=== PATIENT | female | born 1950 | race American Indian/Alaskan Native ===

== ENCOUNTER 2020-06-15 14:05 | Outpatient (CLI) | payer OTHER, SELFPAY ==
--- NOTE | ~2020-06-15 | US_ITS ---
EXAMINATION: US art doppler w press LE BI DATE: 06/15/2020 15:20 INDICATION: Peripheral vascular disease TECHNIQUE: Segmental pressures and plethysmographic and Doppler waveforms of the brachial and lower e xtremity arteries were obtained. COMPARISON: None. FINDINGS: Right and left brachial artery pressures are unable to be obtained due to inability to occlude the ve ssels. Pressures were unable to be obtained at the left and right high thigh due to patient body habi tus. More distally the vessels were unable to be a occluded throughout the right lower limb to the an kle and at the left above and [id number] popliteal artery. Elevated pressures with systolic blood pressures of 167 are seen at both the left dorsalis and posterior tibial arteries and with systolic pressures of 183 and 190 at the right and left great toes respectively. Biphasic waveforms with brisk systolic upstrokes are seen at the arteries throughout both the left and right lower limbs. IMPRESSION: 1. Limited study due to inability to occlude either the left or right brachial artery and the arterie s throughout the majority of both lower limbs. The significantly elevated blood pressures at the bila teral great toes as well as a biphasic waveforms and brisk systolic upstrokes at all of the arteries throughout both lower limbs argues against significant arterial occlusive disease. Reviewed, dictated and finalized at location A. IMPRESSION: 1. Limited study due to inability to occlude either the left or right brachial artery and the arteries throughout the majority of both lower limbs. The signif icantly elevated blood pressures at the bilateral great toes as well as a bipha sic waveforms and brisk systolic upstrokes at all of the arteries throughout ailyn th lower limbs argues against significant arterial occlusive disease.
== END 2020-06-15 14:06 | disposition home or self-care (01) ==
PROVIDERS: PCP Emergency Medicine; Visit Provider Emergency Medicine
DX: I73.9 Peripheral vascular disease, unspecified (principal)
CPT/HCPCS: 93923

== ENCOUNTER → 2020-09-22 15:06 | Outpatient (CLI) | payer OTHER, SELFPAY ==
--- NOTE | ~2020-09-22 | CT_ITS ---
EXAMINATION:CT lung screening DATE: 09/22/2020 15:24 INDICATION: Nicotine dependence, cigarettes, in remission. Smoker who quit 4 years ago with 40 pack y ear history. TECHNIQUE: Computed tomography (CT) of the chest was performed without intravenous contrast. Automate d exposure control and iterative reconstruction technique were employed. The dose-length product (DLP ) was 93.96 mGy-cm. COMPARISON: Chest CT 05/14/2019 FINDINGS: There is mild emphysema. There are scattered areas of subsegmental atelectasis and scarring in the lungs. There are several scattered nodules in the lungs measuring up to 6 mm in left upper lo be, stable from 05/14/2019. There is an 8 mm pleural-based nodule in left lower lobe in an area of scar ring, stable from 05/14/2019. No pleural effusion. The heart size is normal. There are coronary artery calcifications. No pericardial effusion. There are changes of anterior fusion procedure in cervical s pine. There is mild thoracic spondylosis. There is levoscoliosis of upper thoracic spine. IMPRESSION: 1. Lung-RADS category 2: Benign appearance or behavior. Continue annual screening with noncontrast lo w-dose chest CT in 12 months. Reviewed, dictated and finalized at location A. AL LOGISTICS ANALYST IMPRESSION: 1. Lung-RADS category 2: Benign appearance or behavior. Continue annual screeni ng with noncontrast low-dose chest CT in 12 months.
== END ==
PROVIDERS: PCP Student in an Organized Health Care Education/Training Program; Visit Provider Student in an Organized Health Care Education/Training Program
DX: Z12.2 Encounter for screening for malignant neoplasm of respiratory organs (principal); F17.211 Nicotine dependence, cigarettes, in remission
CPT/HCPCS: 71271

== ENCOUNTER 2020-10-07 12:20 | Outpatient (CLI) | payer OTHER, SELFPAY ==
--- NOTE | ~2020-10-07 | MM_ITS ---
EXAMINATION: MM screening [facility] BI w deon HISTORY: Screening TECHNIQUE: Craniocaudal and mediolateral oblique 3-D tomosynthesis images were obtained and synthetic 2-D images were generated. CAD analysis was submitted and interpreted. COMPARISON: Comparison to multiple prior studies sequentially, with oldest reviewed study dated 06/12. BREAST PARENCHYMAL COMPOSITION: There are scattered areas of fibroglandular density. FINDINGS: There is no evidence of suspicious mass, calcification, or architectural distortion to sugg est malignancy in either breast. There has been no suspicious interval change. IMPRESSION: 1. No mammographic evidence of malignancy. 2. Recommend routine screening mammography in one year. BI-RADS Category 1: Negative Reviewed, dictated and finalized at location A. SETTER
== END 2020-10-07 12:21 | disposition home or self-care (01) ==
LOC: ANHIMG 12:23
PROVIDERS: PCP Student in an Organized Health Care Education/Training Program; Visit Provider Student in an Organized Health Care Education/Training Program
DX: Z12.31 Encounter for screening mammogram for malignant neoplasm of breast (principal)
CPT/HCPCS: 77063; 77067

== ENCOUNTER 2021-03-18 13:10 | Outpatient (CLI) | payer OTHER, SELFPAY ==
--- NOTE | 2021-03-18 | ECHO_ITS ---
Patient Info Name: Patricia Grider Age: 70 years : 1950 Gender: Female Ht: 60 in Wt: 197 lbs BSA: 1.99 m2 HR: 69 bpm BP: 133 / 88 mmHg Heart Rhythm: Sinus Rhythm Technical Quality: Fair Exam Date: 03/18/2021 1:44 PM Exam Location: [facility] Patient Status: Outpatient Admit Date: 03/18/2021 Staff Ordering Physician: AureliaAdams DO Manager Licensing: Lynette Nielsen RDCS Attending Provider: AureliaAdams DO Exam Type: CA echo doppler color flow Study Info Indications I27.2 - Other secondary pulmonary hypertension Complete two-dimensional, color flow and Doppler transthoracic echocardiogram is performed. Summary 1. Complete two-dimensional, color flow and Doppler transthoracic echocardiogram is performed. 2. Normal left ventricular size and thickness. The left ventricular systolic function appeared to be the lower end of normal. The visual it ejection fraction estimate was 50-55%. Grade 2 diastolic dysfunction is present. No segmental wall motion abnormalities. 3. Mild pulmonary hypertension, estimated pulmonary arterial systolic pressure is 36 mmHg. 4. No significant valve disease. 5. Calcified aortic root. 6. Borderline pulmonary hypertension, RVSP estimated to be 36 mmHg. 7. Normal sinus rhythm. Left Ventricle Left ventricular chamber dimension is normal. Left ventricular systolic function is normal, estimated at 50-55%. There is no increased left ventricular wall thickness. Left ventricular septal wall motion is normal. The left ventricular diastolic function is grade II diastolic dysfunction. Right Ventricle Right ventricular chamber dimension is normal. Right ventricular systolic function is normal. Left Atria Left atrial chamber dimension is mildly enlarged. Right Atria Right atrial chamber dimension is normal. Aortic Valve The aortic valve is trileaflet. There is mild aortic valve sclerosis. There is no aortic valve stenosis. There is no aortic valve regurgitation. Pulmonic Valve The pulmonic valve is normal. There is no pulmonic valve stenosis. There is no pulmonic regurgitation. Mitral Valve The mitral valve has normal leaflets. There is no mitral valve stenosis. There is trace mitral valve regurgitation. Tricuspid Valve The tricuspid valve leaflets are normal. There is no significant tricuspid valve stenosis. There is trace tricuspid valve regurgitation. Mild pulmonary hypertension, estimated pulmonary arterial systolic pressure is 36 mmHg. Pericardium/Pleural The pericardium appears normal. There is no pericardial effusion. Inferior Vena Cava Normal inferior vena cava with >50% collapse upon inspiration consistent with Empty right atrial pressure, 10 mmHg. Aorta The aortic root size at the sinus of Valsalva is normal. The prox ascending aorta size is normal. Left Ventricular Outflow Tract Name Value Normal LVOT 2D LVOT Diameter 1.9 cm LVOT Doppler LVOT Peak Gradient 4 mmHg LVOT Mean Gradient 2 mmHg LVOT VTI 21 cm
== END 2021-03-18 13:11 | disposition home or self-care (01) ==
LOC: ANHCARD 13:12
PROVIDERS: PCP Student in an Organized Health Care Education/Training Program; Visit Provider Student in an Organized Health Care Education/Training Program
DX: I27.20 Pulmonary hypertension, unspecified (principal); I25.10 Atherosclerotic heart disease of native coronary artery without angina pectoris
CPT/HCPCS: 93306

== ENCOUNTER 2021-04-28 08:56 | Outpatient (CLI) | payer OTHER, SELFPAY ==
--- NOTE | 2021-04-28 12:32 | P.PCNPFT_ITS ---
PFT Procedure Performed PFT Procedure Performed Spirometry with Pre/Post Bronchodilator Plethysmography (Lung Vol) Diffusing Cap (DLCO) Flow Vol Loop PFT Interpretation This is a pulmonary function test with pre and post-bronchodilator spirometry, plethysmography and diffusing capacity. The test was performed and results interpreted in accordance with the 2019 and 2005 ATS/ERS Task Force guidelines respectively using the Global Lung Function Initiative-2012 reference equations. Patient demonstrated good effort and cooperation. Reproducibility criteria were met. The quality of the pre bronchodilator spirometry maneuver was Grade A and post bronchodilator spirometry maneuver was Grade A. Findings: Spirometry: There is decreased maximal expiratory airflow at middle and low lung volumes with concave expiratory flow tracing. The pre bronchodilator FVC is 2.01 L, 82% predicted. The pre bronchodilator FEV1 is 1.36 L, 71% predicted. The FEV1: FVC ratio is 68%. The post bronchodilator FVC is 2.21 L, representing a 10% increase. The post bronchodilator FEV1 is 1.52 L, representing a 160 mL increase which corresponds to a 12% increase. Plethysmography: The total lung capacity is 4.11 L, 93% predicted. The functional residual capacity is 2.55 L, 102% predicted. The residual volume is 1.83 L, 93% predicted. Diffusion capacity: The absolute diffusion capacity is 11.0, 58% predicted. The diffusing capacity corrected for alveolar volume is 3.18, 71% predicted. Impression: There is a mild obstructive abnormality without significant improvement after inhaling a single dose of albuterol as the absolute increase in FEV1 is less than 200 mL. the lung volumes are normal. The absolute diffusi on capacity is moderately decreased and remains mildly decreased when corrected for alveolar volume. There are no prior studies for comparison
== END 2021-04-28 08:57 | disposition home or self-care (01) ==
PROVIDERS: PCP Student in an Organized Health Care Education/Training Program; Visit Provider Student in an Organized Health Care Education/Training Program
DX: R93.1 Abnormal findings on diagnostic imaging of heart and coronary circulation (principal); R94.2 Abnormal results of pulmonary function studies
CPT/HCPCS: 94060; 94726; 94729

== ENCOUNTER 2021-12-22 08:58 | Outpatient (CLI) | payer OTHER, SELFPAY ==
--- NOTE | ~2021-12-22 | CT_ITS ---
EXAMINATION: CT lung screening EXAM DATE: 12/22/2021 09:22 INDICATION: Nicotine Dependence Cigarettes TECHNIQUE: Spiral low dose CT of the chest without contrast. Axial, coronal and sagittal images were reviewed. The dose-length product (DLP) for this examination was 81.28 mGy-cm. The exposure was ta ilored according to patient size (auto mA exposure control), and iterative reconstruction (ASIR) was used as additional dose reduction technique. Comparison is made to prior examination from 09/22/2020. FINDINGS: Scattered small opacities, mostly linear postinfectious. Largest nodular opacity is in the left upper lobe measuring 5 mm, image 22, stable. There is mild to moderate emphysema and hyperinfla tion. Tracheobronchial tree is patent. There is no mediastinal, hilar or axillary lymphadenopathy. There are no pleural or pericardial effusions. There is no pneumothorax. Heart normal in size. There is moderate to severe coronary arterial calcification, arterial sclerosis. Splenic flexure c olonic diverticulosis. There is thoracic spondylosis without osteoblastic or osteolytic lesions iden tified. IMPRESSION: 1. Lung-RADS category 2S, benign appearance or behavior (<1% chance of malignancy); recommend continu ed LDCT screening in 1 year. 2. Moderate to severe coronary artery calcifications. Has cardiology recently evaluated? Reviewed, dictated and finalized at location B. IMPRESSION: 1. Lung-RADS category 2S, benign appearance or behavior (<1% chance of malignan cy); recommend continued LDCT screening in 1 year. 2. Moderate to severe coronary artery calcifications. Has cardiology recently e valuated?
== END 2021-12-22 08:59 | disposition home or self-care (01) ==
PROVIDERS: PCP Student in an Organized Health Care Education/Training Program; Visit Provider Student in an Organized Health Care Education/Training Program
DX: Z12.2 Encounter for screening for malignant neoplasm of respiratory organs (principal); F17.211 Nicotine dependence, cigarettes, in remission; I25.10 Atherosclerotic heart disease of native coronary artery without angina pectoris
CPT/HCPCS: 71271

== ENCOUNTER 2021-12-28 15:59 | Emergency (ER) | payer OTHER, SELFPAY ==
[2021-12-28] VITALS (11 sets, daily range): BP systolic 109–132; BP diastolic 51–53; PULSE 62–81; RESP 16–27; TEMP 36.4; O2SAT 94–98
--- NOTE | ~2021-12-28 | XR_ITS ---
EXAMINATION: XR chest 2V DATE: 12/28/2021 16:53 INDICATION: Chest pain radiating from right to left. COPD. TECHNIQUE: PA and lateral views of the chest were obtained. COMPARISON: Chest radiograph dated 10/19/[address] dated 12/22/2021. FINDINGS: Linear atelectasis/scarring at the lateral left lower lung zone. Additional mild peripheral atelectas is/scarring at the lateral aspect of the junction of the right mid to upper lung zone. No other airsp rebecca opacities, pulmonary edema, pleural effusion or pneumothorax. The cardiomediastinal silhouette is normal. Mild S-shaped curvature of the thoracolumbar spine. Anterior plate-screw fixation for mid to lower cervical anterior spinal fusion. IMPRESSION: 1. Chronic atelectasis/scarring at the left lung base and lateral right mid to upper lung zone. No ac [place] cardiopulmonary disease. Reviewed, dictated and finalized at location A. IMPRESSION: 1. Chronic atelectasis/scarring at the left lung base and lateral right mid to upper lung zone. No acute cardiopulmonary disease.
--- NOTE | ~2021-12-28 | NM_ITS ---
EXAMINATION: NM pulmonary perfusion DATE: 12/28/2021 19:56 INDICATION: Chest pain. TECHNIQUE: 5.1 mCi Tc-99m MAA was administered intravenously for perfusion images. Scintigraphic soo ges of the chest were obtained. COMPARISON: Chest 2 views 12/28/2021, chest CT 12/22/2021 FINDINGS: Perfusion images show large mismatched defects in apical and posterior segments of right upper lobe t hat are out of proportion to the degree of emphysema. There are small defects in the lower lobes. The re is a moderate-sized mismatched defect in the posterobasal segment right lower lobe. IMPRESSION: 1. Pulmonary embolism present (high probability). I called this result to Dr. Castro. Reviewed, dictated and finalized at location B.
--- NOTE | 2021-12-28 16:05 | ECG_ITS ---
Measurements Intervals Floyd Rate: 75 P: 63 WY: 151 QRS: 57 QRSD: 80 T: 56 QT: 393 QTc: 440 Interpretive Statements SINUS RHYTHM WITH SINUS ARRHYTHMIA LOW QRS VOLTAGE IN PRECORDIAL LEADS [QRS DEFLECTION < 1.0 mV IN CHEST LEADS] ABNORMAL ECG COMPARED TO ECG 10/17/2018 14:29:17 NO SIGNIFICANT CHANGE Electronically Signed On 12-29-2021 11:38:41 CDT by Dariel Brooks M.D.
--- NOTE | 2021-12-28 16:59 | ED.CHESTPAIN ---
HPI - Chest Pain General Chief Complaint: Chest Pain Stated Complaint: chest pain Time Seen by Provider: 12/28/21 16:53 History of Present Illness HPI narrative: 71-year-old female presents the emergency room for evaluation of chest pain has been present for 5 days. Patient states last week she had a CT scan to evaluate pulmonary nodules, and since then has been experiencing a constant sharp chest pain that radiates across her chest and through to her back. Patient denies any alleviating or aggravating factors. Patient also reports 1 episode of palpitations that lasted for just a couple of seconds. Patient denies any increase shortness of breath, nausea vomiting, dizziness, or lightheadedness. Patient denies any syncope or presyncopal episodes. Patient states that she has a recently started taking an increased dose of her losartan/HCTZ. Related Data Home Medications Medication Instructions Recorded Confirmed dorzolamide 22.3 mg-timolol 6.8 1 drop EACH EYE BID 08/13/19 mg/mL eye drops Allergies Allergy/AdvReac Type Severity Reaction Status Date / Time etodolac Allergy Mild UNKNOWN Verified 10/17/18 17:04 amoxicillin Allergy Unknown Verified 10/17/18 17:04 bacitracin Allergy Unknown Verified 10/17/18 17:04 chlorpheniramine Allergy Unknown Verified 10/17/18 17:04 codeine Allergy Unknown Verified 10/17/18 17:04 diclofenac Allergy Unknown Verified 10/17/18 17:04 doxycycline Allergy Unknown Verified 10/17/18 17:04 hydrocodone Allergy Unknown Verified 10/17/18 17:04 latex Allergy Unknown RASH WITH Verified 10/17/18 17:04 RUBBER GLOVES misoprostol Allergy Unknown Verified 10/17/18 17:04 moxifloxacin Allergy Unknown Verified 10/17/18 17:04 neomycin Allergy Unknown Verified 10/17/18 17:04 polymyxin B Allergy Unknown Verified 10/17/18 17:04 adhesive tape AdvReac Mild VERY Verified 10/17/18 17:04 SENSITIVE SKIN Contrast Media Allergy Severe SOB, Uncoded 10/17/18 17:04 SWELLING, HIVES Review of Systems Review of Systems: CONSTITUTIONAL: Denies fever, chills, or sweats. EYES: Denies visual changes, redness, or discharge. ENT: Denies rhinorrhea, congestion, sore throat, or otalgia. CARDIOVASCULAR: Reports chest pain RESPIRATORY: Denies cough or dyspnea. GASTROINTESTINAL: Denies abdominal pain, nausea, vomiting, or diarrhea. GENITOURINARY: Denies dysuria or hematuria. SKIN: Denies rash or itching. MUSCULOSKELETAL: Denies back pain, joint pain, or myalgia. NEUROLOGIC: Denies headache, numbness, dizziness, or weakness. PSYCHIATRIC: Denies anxiety or depression. [facility] Past Medical History Medical History (Updated 12/28/21 @ 22:47 by Eusebio Garcia APRN) COPD (chronic obstructive pulmonary disease) Diabetes mellitus HTN (hypertension) Family History Family History Father Family history of chronic obstructive pulmonary disease Malignant neoplasm of prostate, Onset Age: 65 Mother Family history of suicide, Onset Age: 43 Family history of malignant neoplasm, Onset Age: 43 Other Acute myocardial infarction Diabetes mellitus Family history of Sheree's chorea Family history of arthritis Family history of cardiovascular disease Hypertension Social History Social History Smoking status: Former smoker Smoking end date: 09/11/16 Alcohol intake: never Exam Narrative: GENERAL: Well-appearing, well-nourished, and in no acute distress. HEAD: Normocephalic, atraumatic. EYES: PERRLA and EOMI. NECK: Supple. No adenopathy or masses. No carotid bruits or JVD CHEST: Clear to auscultation. No respiratory distress. No wheezes rales or rhonchi HEART: Regular rate and rhythm. No murmur heard. Normal peripheral pulses. ABDOMEN: Soft, nontender, nondistended, normal active bowel sounds. EXTREMITIES: Normal range of motion. No edema. SKIN:
[2021-12-28 17:17] LABS: Basophils Percent Auto 0.3 % (0.2-1.2); Eosinophils Absolute Auto 0.1 K/mm3 (0-0.3); Eosinophils Percent Auto 1.8 % (0-4.4); Hematocrit 45.2 % (37.0-47.0); Hemoglobin 14.6 g/dL (12.0-15.0); Immature Granulocyte Absolute 0.04 K/mm3 (0.00-0.031); Immature Granulocyte Percent A 0.6 % (0-0.5); Lymphocytes Absolute Auto 1.66 K/mm3 (0.9-3.2); Lymphocytes Percent Auto 23.3 % (18.3-44.2); Mean Corpuscular HGB Conc 32.3 g/dl (32-36); Mean Corpuscular Hemoglobin 30.3 pg (26-34); Mean Corpuscular Volume 93.8 fl (80-100); Mean Platelet Volume 10.4 fl (7.4-10.4); Monocytes Absolute Auto 0.7 K/mm3 (0.1-0.6); Monocytes Percent Auto 10.1 % (2.6-8.5); Neutrophils Absolute Auto 4.6 K/mm3 (1.3-6.7); Neutrophils Percent Auto 63.9 % (45.5-73.1); Platelet Count Result 186 k/mm3 (150-375); Red Blood Count 4.82 M/mm3 (4.2-5.4); White Blood Count 7.1 K/mm3 (4.5-10.0)
[2021-12-28 17:26] LABS: Alanine Aminotransferase 18 U/L (4-35); Albumin Level 4.2 g/dL (3.5-5.1); Alkaline Phosphatase 82 U/L (38-126); Anion Gap 8 mmol/L (8-16); Aspartate Amino Transferase 24 U/L (14-36); Bilirubin,Total 0.9 mg/dL (0.2-1.3); Blood Urea Nitrogen 35 mg/dL (7-17); Calcium 8.9 mg/dL (8.4-10.2); Carbon Dioxide 28 mmol/L (22-30); Chloride 103 mmol/L (98-107); Estimated CRCL calculation 25 ml/min; Estimated Glomerular Filt Rate 28; Glucose 133 mg/dL (65-110); Lipase 254 U/L (23-300); Potassium 3.8 mmol/L (3.4-5.0); Sodium 139 mmol/L (137-145)
[2021-12-28 17:28] LABS: INR 1.1; Prothrombin Time 13.8 Seconds (11.1-14.7)
[2021-12-28 17:38] LABS: Troponin I < 0.012 ng/mL (0.000-0.034)
[2021-12-28 21:02] LABS: Troponin I 0.022 ng/mL (0.000-0.034)
--- NOTE | 2021-12-29 10:21 | PC.NURSE ---
per er charge results faxed to dr magaña's office
== END 2021-12-28 23:20 | disposition home or self-care (01) ==
PROVIDERS: Emergency Medicine; Emergency Provider Nurse Practitioner Family; PCP Student in an Organized Health Care Education/Training Program
DX: R07.89 Other chest pain (principal); J44.9 Chronic obstructive pulmonary disease, unspecified; E11.9 Type 2 diabetes mellitus without complications; I10 Essential (primary) hypertension; Z87.891 Personal history of nicotine dependence; Z79.84 Long term (current) use of oral hypoglycemic drugs; R94.31 Abnormal electrocardiogram [ECG] [EKG]; R91.8 Other nonspecific abnormal finding of lung field
CPT/HCPCS: 36415; 71046; 78580; 80053; 83690; 84484; 85025; 85380; 85610; 85730; 93005; 99284; A9540

== ENCOUNTER 2022-03-29 09:33 | Outpatient (CLI) | payer OTHER, SELFPAY ==
--- NOTE | ~2022-03-29 | MM_ITS ---
EXAMINATION: MM screening [facility] BI w deon HISTORY: Screening TECHNIQUE: Craniocaudal and mediolateral oblique 3-D tomosynthesis images were obtained and synthetic 2-D images were generated. CAD analysis was submitted and interpreted. COMPARISON: Comparison to multiple prior studies sequentially, with oldest reviewed study dated 06/12. BREAST PARENCHYMAL COMPOSITION: There are scattered areas of fibroglandular density. FINDINGS: There is no evidence of suspicious mass, calcification, or architectural distortion to sugg est malignancy in either breast. There has been no suspicious interval change. IMPRESSION: 1. No mammographic evidence of malignancy. 2. Recommend routine screening mammography in one year. BI-RADS Category 1: Negative Reviewed, dictated and finalized at location A.
== END 2022-03-29 09:34 | disposition home or self-care (01) ==
PROVIDERS: PCP Student in an Organized Health Care Education/Training Program; Visit Provider Student in an Organized Health Care Education/Training Program
DX: Z12.31 Encounter for screening mammogram for malignant neoplasm of breast (principal)
CPT/HCPCS: 77063; 77067

== ENCOUNTER → 2022-09-13 10:09 | Outpatient (CLI) | payer OTHER, SELFPAY ==
--- NOTE | ~2022-09-13 | DEXA_ITS ---
Bone Density Report Name: ISAURO PISANO Age: 72 Sex: Female Ethnicity: White Date of : 1950 Indication: postmenopausal; screening for osteoporosis; asthma or emphysema; hysterectomy; rheumatoid arthritis; secondary osteoporosis; Referring Provider: Aurelia, Adams Study: Bone densitometry was performed. Exam Date: September 13, 2022 Accession number: [id number] Bone Density: Region BMD T-score Z-score Classification AP Spine (L1-L4) 0.951 -0.9 1.4 Normal Femoral Neck (Left) 0.706 -1.3 0.6 Osteopenia Total Hip (Left) 0.842 -0.8 0.8 Normal Femoral Neck (Right) 0.768 -0.7 1.2 Normal Total Hip (Right) 0.913 -0.2 1.4 Normal Total Hip Mean 0.878 -0.5 1.1 Normal World Health Organization criteria for BMD impression classify patients as: Normal (T-score at or above -1.0), Osteopenia (T-score between -1.0 and -2.5), or Osteoporosis (T-score at or below -2.5). 10-year Fracture Risk(1): Major Osteoporotic Fracture 12% Hip Fracture 1.8% Reported Risk Factors: [place] (), Neck BMD=0.706, BMI=36.9, rheumatoid arthritis, secondary osteoporosis (1) FRAX(R) Version 3.08. Fracture probability calculated for an untreated patient. Fracture probability may be lower if the patient has received treatment. Clinical Information Provided by Patient: Has rheumatoid arthritis Has secondary osteoporosis Has the following medical conditions: Asthma or Emphysema, Hysterectomy Patient maximum height was 60 Menopause Age: 35 No regular weight bearing exercise Does not regularly consume dairy products Drinks caffeinated beverages Onset of menses at age 10 Number of children 1 Missed period for more than 6 months in a row Impression: The patient has low bone mass, based on the Left Femoral Neck T-score. The patient has an estimated ten-year risk of hip fracture of 1.8% and an estimated ten-year risk of major fracture of 12%, based on the WHO FRAX algorithm. Discussion: BONE DENSITY IS LOW AT ONE OR MORE SKELETAL SITES. This patient's lowest T-score is low at one or more skeletal sites. It meets the World Health Organization's (WHO) criteria for ?low bone mass? (T-score between -1.0 and -2.5). The patient's 10-year risk of fracture as calculated by FRAX is less than the threshold where pharmacological therapy is recommended by the National Osteoporosis Foundation (NOF). However, all treatment decisions require clinical judgment and consideration of individual patient factors, including patient preferences, comorbidities, previous drug use, risk factors not captured in the FRAX model (e.g., frailty, falls, vitamin D deficiency, increased bone turnover, interval significant decline in bone density) and possible under or overestimation of fracture risk by FRAX. The patient should follow a healthful
== END ==
PROVIDERS: PCP Student in an Organized Health Care Education/Training Program; Visit Provider Student in an Organized Health Care Education/Training Program
DX: Z78.0 Asymptomatic menopausal state (principal); M85.852 Other specified disorders of bone density and structure, left thigh
CPT/HCPCS: 77080

== ENCOUNTER 2022-11-07 01:09 | Day surgery (SDC) | payer OTHER, SELFPAY ==
[2022-11-04 15:16] VITALS: BMI 38.5
[2022-11-07] VITALS (17 sets, daily range): BP systolic 128–166; BP diastolic 50–88; PULSE 56–72; RESP 16–26; TEMP 36.3–36.7; O2SAT 93–99; BMI 35.9
[2022-11-07 07:32] LABS: Anion Gap 9 mmol/L (8-16); Blood Urea Nitrogen 18 mg/dL (7-17); Calcium 9.4 mg/dL (8.4-10.2); Carbon Dioxide 25 mmol/L (22-30); Chloride 102 mmol/L (98-107); Estimated CRCL calculation 53 ml/min; Estimated Glomerular Filt Rate > 60; Glucose 287 mg/dL (65-110); Potassium 4.2 mmol/L (3.4-5.0); Sodium 136 mmol/L (137-145)
[2022-11-07 07:43] LABS: Prothrombin Time 13.1 Seconds (11.1-14.7)
[2022-11-07 07:47] LABS: Basophils Percent Auto 0.2 % (0.2-1.2); Hematocrit 46.6 % (37.0-47.0); Hemoglobin 15.7 g/dL (12.0-15.0); Immature Granulocyte Absolute 0.04 K/mm3 (0.00-0.031); Immature Granulocyte Percent A 0.6 % (0-0.5); Lymphocytes Absolute Auto 0.79 K/mm3 (0.9-3.2); Lymphocytes Percent Auto 12.6 % (18.3-44.2); Mean Corpuscular HGB Conc 33.7 g/dl (32-36); Mean Corpuscular Hemoglobin 30.9 pg (26-34); Mean Corpuscular Volume 91.7 fl (80-100); Mean Platelet Volume 11.6 fl (7.4-10.4); Monocytes Absolute Auto 0.1 K/mm3 (0.1-0.6); Monocytes Percent Auto 0.8 % (2.6-8.5); Neutrophils Absolute Auto 5.4 K/mm3 (1.3-6.7); Neutrophils Percent Auto 85.8 % (45.5-73.1); Platelet Count Result 188 k/mm3 (150-375); Red Blood Count 5.08 M/mm3 (4.2-5.4); Red Cell Distribution Width 13.2 % (11.5-14.5); White Blood Count 6.3 K/mm3 (4.5-10.0)
--- NOTE | 2022-11-07 08:35 | WPDHPUPDATE1 ---
History and Physical Update Update Date/Time: 11/07/22 08:35 History and Physical has been reviewed, including an updated exam of the patient. There are NO changes in the patient's condition. Risks, benefits, and alternatives have been discussed and questions answered. Patient agrees to proceed with procedure.
--- NOTE | 2022-11-07 08:36 | WPDMODSED ---
Moderate Sedation Note-Pt Data Patient Data Diagnosis: Chest pain, abnormal stress test Present Complaint: none Procedure to be performed/Plan: left heart catheterization with selective left and right coronary angiography with left ventriculography and hemodynamics and possible percutaneous intervention and stent implantation Allergies Allergy/AdvReac Type Severity Reaction Status Date / Time Iodinated Contrast Media Allergy Severe Other Verified 11/07/22 07:11 etodolac Allergy Mild UNKNOWN Verified 11/07/22 07:11 amoxicillin Allergy Unknown Unknown Verified 11/07/22 07:11 bacitracin Allergy Unknown Unknown Verified 11/07/22 07:11 chlorpheniramine Allergy Unknown Unknown Verified 11/07/22 07:11 codeine Allergy Unknown Unknown Verified 11/07/22 07:11 diclofenac Allergy Unknown Unknown Verified 11/07/22 07:11 doxycycline Allergy Unknown Unknown Verified 11/07/22 07:11 guaifenesin Allergy Unknown Unknown Verified 11/07/22 07:11 hydrocodone Allergy Unknown Unknown Verified 11/07/22 07:11 iodine Allergy Unknown Unknown Verified 11/07/22 07:11 latex Allergy Unknown RASH WITH Verified 11/07/22 07:11 RUBBER GLOVES methylparaben Allergy Unknown Unknown Verified 11/07/22 07:11 misoprostol Allergy Unknown Unknown Verified 11/07/22 07:11 moxifloxacin Allergy Unknown Unknown Verified 11/07/22 07:11 neomycin Allergy Unknown Unknown Verified 11/07/22 07:11 polymyxin B Allergy Unknown Unknown Verified 11/07/22 07:11 pregabalin Allergy Unknown Unknown Verified 11/07/22 07:11 Sulfa (Sulfonamide Allergy Unknown Unknown Verified 11/07/22 07:11 Antibiotics) adhesive tape AdvReac Mild VERY Verified 11/07/22 07:11 SENSITIVE SKIN Contrast Media Allergy Severe SOB, Uncoded 11/07/22 07:11 SWELLING, HIVES Home Medications Medication Instructions Recorded Confirmed Type dorzolamide 22.3 mg-timolol 6.8 1 drop ophthalmic (eye) BID 08/13/19 11/07/22 History mg/mL eye drops montelukast 10 mg tablet 10 mg PO DAILY #90 tabs 07/03/20 11/07/22 Rx albuterol sulfate 90 mcg/actuation See Rx Instructions .Route 05/21/21 11/07/22 Rx aerosol inhaler .COMPLEX ##8.5 apixaban 5 mg tablet (Eliquis) 5 mg PO BID 11/04/22 11/07/22 History atorvastatin 80 mg tablet 80 mg PO DAILY 11/04/22 11/07/22 History cholecalciferol (vitamin D3) 50 50 mcg PO DAILY 11/04/22 11/07/22 History mcg (2,000 unit) capsule (Vitamin D3) olmesartan 20 mg tablet 20 mg PO DAILY 11/04/22 11/07/22 History Current Medications: Active Medications Sodium Chloride (Normal Saline Iv) 500 mls @ 100 mls/hr IV CONT .Q5H [place] Sedation/Anesthesia: No previous sedation/anesthesia problems (including family history). [facility] Past Medical History Medical History COPD (chronic obstructive pulmonary disease) Diabetes mellitus HTN (hypertension) Family History Family History Father Family history of chronic obstructive pulmonary disease Malignant neoplasm of prostate, Onset Age: 65 Mother Family history of suicide, Onset Age: 43 Family history of malignant neoplasm, Onset Age: 43 Other Acute myocardial infarction Diabetes mellitus Family history of Sheree's chorea Family history of arthritis Family history of cardiovascular disease Hypertension Social History Social History Smoking packs per day: 2 Smoking cigarettes per day: 40.0 Smoking status: Former smoker Tobacco type: cigarettes Smoking end date: 09/11/16 Additional smoking assessment comments: 2017 Alcohol intake: never Substance use: never Living arrangements: with family Spiritual care concerns: No Mod Sed Physical Exam Physical Exam Pre Procedural Exam: Normal: Appearance, Eyes, Ears, Nose, Neck ( supple, normal range of motion), Throat ( hypopharynx clear
--- NOTE | 2022-11-07 08:40 | PM.OP ---
Procedure Note - Brief Procedure Note - Brief Date of procedure: 11/07/22 Pre-op diagnosis: Abn Stress Test, Abn Coronary Calcium score Same Post-op diagnosis: Same Procedure performed: left heart catheterization with selective left and right coronary angiography with left ventricular hemodynamics Description of procedure: BRIEF HISTORY OF PRESENT ILLNESS: Patient is a pleasant 72-year-old female with a past medical history significant for former smoking, hypertension, hyperlipidemia, diabetes mellitus, history of pulmonary embolism, contrast allergy, documented coronary calcification on CT, and resume with complaints of chest pain and underwent Lexiscan nuclear stress test which revealed moderate size [id number] intensity of anterior anterolateral reversible ischemia EF 71% subsequent referred for left heart catheterization for delineation of her coronary anatomy. Patient has the iodinated contrast allergy for which she was pretreated with antihistamines and steroids. She also has a latex and adhesive tape allergy. PROCEDURES PERFORMED: 1. Left heart catheterization 2. Selective left and right coronary angiography 3. Left ventricular hemodynamics 4. Moderate/conscious sedation administration 5. Selective right femoral angiography CATHETERS UTILIZED: Left coronary system- 5 [place] JL4 catheter Right coronary system- 5 [place] JR4 catheter Left ventriculography and hemodynamics- 5 [place] angled pigtail catheter PROCEDURE IN DETAIL: After verbal and written informed consent was obtained the patient, risks, benefits, and alternatives explained in detail the patient agreed to proceed with the plan of care as outlined above. The patient was subsequently brought to the cardiac catheterization lab, placed on the cardiac catheterization table, and prepped and draped in the usual sterile fashion. Utilizing approximately 19cc of 1% subcutaneous Lidocaine, the right groin was then locally anesthetized. Utilizing the modified Seldinger technique, a 5 [place] arterial vascular access sheath was inserted in the right common femoral artery easily and without complications. Through this access, coronary angiography was subsequently obtained in multiple standard re-projections. Following this, a 5 [place] angled pigtail catheter was advanced retrograde across aortic valve into the cavity of the left ventricle. Left ventriculography was performed and pullback across aortic valve was subsequently recorded. The vascular access sheath and angiographic catheters were flushed before and after catheter exchanges. At the conclusion of the diagnostic portion of the procedure, all angiographic guidewires and catheters were removed and the 5 [place] arterial vascular access sheath was then pulled and satisfactory hemostasis was achieved using manual compression. There no complications noted at the conclusion of the diagnostic portion of the study. MODERATE SEDATION/ANESTHESIA ADMINISTRATION: Patient reports no prior problems with sedation/anesthesia. Please see pre-sedation noted for physical examination documentation. Sedation start time was 0849 and end time was 0923 for a total intra-service/procedure face-face time of 34 minutes. A total of 1 mg intravenous Versed and a total of 50 mcg intravenous Fentanyl was administered for moderate sedation. Moderate sedation was administered by qualified/certified observer Cee Gonzales RN under my supervision with intra-procedure [id number] observation and management throughout the entirety of the procedure. There were no other issues or complications and patient tolerated the procedure well. See post-anesthesia documentation. Anesthesia: local and other ( moderate/conscious sedation) Surgeon: Gopi Almaguer MD Estimated blood loss (mL): 10 Complications: No immediate complications Condition: Stable Disposition: Same day Findings: CORONARY ANGIOGRAPHY: The LEFT MAIN arose from the left coronar
== END 2022-11-07 14:55 | disposition home or self-care (01) ==
PROVIDERS: PCP Student in an Organized Health Care Education/Training Program; Visit Provider Internal Medicine Cardiovascular Disease
PROC: 4A023N7 Measurement of Cardiac Sampling and Pressure, Left Heart, Percutaneous Approach (ICD-10-PCS; CPT 93452; principal; 2022-11-07 08:30)
DX: I25.10 Atherosclerotic heart disease of native coronary artery without angina pectoris (principal); R07.9 Chest pain, unspecified; R94.39 Abnormal result of other cardiovascular function study; I10 Essential (primary) hypertension; E78.5 Hyperlipidemia, unspecified; E11.9 Type 2 diabetes mellitus without complications; J44.9 Chronic obstructive pulmonary disease, unspecified; Z86.711 Personal history of pulmonary embolism; Z79.51 Long term (current) use of inhaled steroids; Z79.01 Long term (current) use of anticoagulants; Z87.891 Personal history of nicotine dependence
CPT/HCPCS: 36415; 80048; 85025; 85610; 93458; C1887; C1894; J0583; J1644; J2250; J3010; J7030; J7040

== ENCOUNTER 2023-03-20 09:55 | Outpatient (CLI) | payer OTHER, SELFPAY ==
[2023-03-20 11:08] LABS: Basophils Percent Auto 0.3 % (0.2-1.2); Eosinophils Absolute Auto 0.1 K/mm3 (0-0.3); Eosinophils Percent Auto 1.2 % (0-4.4); Hematocrit 42.4 % (37.0-47.0); Immature Granulocyte Absolute 0.05 K/mm3 (0.00-0.031); Immature Granulocyte Percent A 0.7 % (0-0.5); Lymphocytes Absolute Auto 2.06 K/mm3 (0.9-3.2); Lymphocytes Percent Auto 28.4 % (18.3-44.2); Mean Corpuscular HGB Conc 30.7 g/dl (32-36); Mean Corpuscular Hemoglobin 27.7 pg (26-34); Mean Corpuscular Volume 90.2 fl (80-100); Mean Platelet Volume 10.6 fl (7.4-10.4); Monocytes Absolute Auto 0.5 K/mm3 (0.1-0.6); Monocytes Percent Auto 7.4 % (2.6-8.5); Neutrophils Absolute Auto 4.5 K/mm3 (1.3-6.7); Platelet Count Result 269 k/mm3 (150-375); Red Cell Distribution Width 14.6 % (11.5-14.5); White Blood Count 7.3 K/mm3 (4.5-10.0)
[2023-03-20 11:22] LABS: Alanine Aminotransferase 24 U/L (6-35); Albumin Level 4.1 g/dL (3.5-5.1); Alkaline Phosphatase 107 U/L (38-126); Anion Gap 4 mmol/L (8-16); Aspartate Amino Transferase 29 U/L (14-36); Bilirubin,Total 0.7 mg/dL (0.2-1.3); Blood Urea Nitrogen 19 mg/dL (7-17); Calcium 9.4 mg/dL (8.4-10.2); Carbon Dioxide 28 mmol/L (22-30); Chloride 106 mmol/L (98-107); Estimated Glomerular Filt Rate 55; Glucose 145 mg/dL (65-110); Lipase 320 U/L (23-300); Potassium 4.4 mmol/L (3.4-5.0); Sodium 138 mmol/L (137-145)
== END 2023-03-20 09:56 | disposition home or self-care (01) ==
PROVIDERS: PCP Student in an Organized Health Care Education/Training Program; Visit Provider Student in an Organized Health Care Education/Training Program
DX: R10.9 Unspecified abdominal pain (principal)
CPT/HCPCS: 36415; 80053; 83690; 85025

== ENCOUNTER 2023-10-04 09:29 | Outpatient (CLI) | payer OTHER, SELFPAY ==
--- NOTE | ~2023-10-04 | MM_ITS ---
EXAMINATION: MM screening shanna BI w deon HISTORY: Screening mammogram, family history of breast cancer in her sister. TECHNIQUE: Craniocaudal and mediolateral oblique 3-D tomosynthesis images were obtained and synthetic 2-D images were generated. CAD analysis was submitted and interpreted. COMPARISON: 03/29/2022, 10/07/2020, 08/21/2019 BREAST PARENCHYMAL COMPOSITION: There are scattered areas of fibroglandular density. FINDINGS: No suspicious mass, calcification, or architectural distortion are identified in either macario ast to suggest malignancy. There has been no suspicious interval change. IMPRESSION: 1. No mammographic evidence of malignancy. 2. Recommend routine screening mammography in one year. BI-RADS Category 1: Negative Reviewed, dictated and finalized at location A. OGRAPHIC AIDE
== END 2023-10-04 09:30 | disposition home or self-care (01) ==
LOC: ANHIMG 09:31
PROVIDERS: PCP Student in an Organized Health Care Education/Training Program; Visit Provider Student in an Organized Health Care Education/Training Program
DX: Z12.31 Encounter for screening mammogram for malignant neoplasm of breast (principal)
CPT/HCPCS: 77063; 77067

== ENCOUNTER 2024-11-01 14:15 | Outpatient (CLI) | payer OTHER, SELFPAY ==
--- NOTE | ~2024-11-01 | DEXA_ITS ---
Bone Density Report Name: ISAURO PISANO Age: 74 Sex: Female Ethnicity: White Date of : 1950 Indication: osteopenia; hysterectomy; rheumatoid arthritis; Referring Provider: SAMMI, LEATHA Study: Bone densitometry was performed. Exam Date: November 01, 2024 Accession number: [id number] Bone Density: Region BMD T-score Z-score Classification AP Spine(L1-L4) 0.912 -1.2 1.1 Osteopenia Femoral Neck (Left) 0.640 -1.9 0.2 Osteopenia Total Hip (Left) 0.745 -1.6 0.1 Osteopenia Femoral Neck (Right) 0.737 -1.0 1.0 Normal Total Hip (Right) 0.857 -0.7 1.1 Normal Total Hip Mean 0.801 -1.2 0.6 Osteopenia World Health Organization criteria for BMD impression classify patients as: Normal (T-score at or above -1.0), Osteopenia (T-score between -1.0 and -2.5), or Osteoporosis (T-score at or below -2.5). 10-year Fracture Risk(1): Major Osteoporotic Fracture 14% Hip Fracture 3.4% Reported Risk Factors: [place] (), Neck BMD=0.640, BMI=35.9, rheumatoid arthritis (1) FRAX(R) Version 3.08. Fracture probability calculated for an untreated patient. Fracture probability may be lower if the patient has received treatment. Previous Exams: Region Exam Age BMD T-score BMD Change BMD Change Date g/cm2 vs Baseline vs Previous AP Spine (L1-L4) 11/01/2024 74 0.912 -1.2 0.014 (1.6%)# 0.020 (2.2%)# 08/21/2019 69 0.892 -1.4 -0.005 (-0.6%) -0.005 (-0.6%) 08/24/2017 67 0.897 -1.4 Total Hip(Left) 11/01/2024 74 0.745 -1.6 -0.102 (-12.1% -0.132 (-15.1% 08/21/2019 69 0.878 -0.5 0.030 (3.5%)* 0.030 (3.5%)* 08/24/2017 67 0.848 -0.8 Total Hip(Right) 11/01/2024 74 0.857 -0.7 -0.034 (-3.9%) -0.070 (-7.6%) 08/21/2019 69 0.928 -0.1 0.036 (4.0%)* 0.036 (4.0%)* 08/24/2017 67 0.892 -0.4 *Denotes significance at 95% confidence level, LSC for AP Spine = 0.022 g/cm2, LSC for Total Hip = 0.027 g/cm2 # Denotes dissimilar scan types or analysis methods Clinical Information Provided by Patient: Has rheumatoid arthritis Has used the following medications: Vitamin D Has the following medical conditions: Hysterectomy Patient maximum height was 60 Menopause Age: 36 No regular weight bearing exercise Does not regularly consume dairy products Drinks caffeinated beverages Onset of menses at age 13 Number of children 1 Missed period for more than 6 months in a row Impression: The patient has low bone mass, based on the Left Femoral Neck T-score. The patient has an estimated ten-year risk of hip fracture of 3.4% and an estimated ten-year risk of major fracture of 14%, based on the WHO FRAX algorithm. No significant bone loss was observed. Discussion: BONE DENSITY IS LOW AT ONE OR MORE SKELETAL SITES. THE PATIENT'S BMD AND CLINICAL RISK FACTORS CONTRIBUTE TO THIS PATIENT'S INCREASED RISK OF FRACTURE. This patient's lowest T-score is low at one or more skeletal sites. It meets the World Health Organization's (WHO) criteria for ?low bone mass? (T-score between -1.0 and -2.5). The patient's 10-year risk of hip fracture as calculated by FRAX exceeds the threshold where pharmacological therapy is recommended by the National Osteoporosis Foundation (NOF). However, all treatment decisions require clinical judgment and consideration of individual patient factors, including patient preferences, comorbidities, previous drug use, risk factors not captured in the FRAX model (e.g., frailty, falls, vitamin D deficiency, increased bone turnover, interval significant decline in bone density) and possible under or overestimation of fracture risk by FRAX. The patient should follow a healthful lifestyle (good nutrition with adequate calcium and vitamin D, and appropriate weight-bearing exercise). Follow-Up: Consider a repeat BMD and Vertebral Fracture Assessment (VFA) exam in 2 years or sooner if medically necessary, to reassess this patient's status. Reported by: LEIGH ANN on 11/04/2024 8:05:00 AM. Reviewed, dictated and finalized at location Meagan OAKLEY
--- OUTSIDE RECORDS SUMMARY | 2024-11-01 14:19 | XMS_ITS | Clinical Summary ---
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 Name Role Phone Leatha Chapa Richi DO Primary Care Provider + Allergies Active Allergy Reactions Criticality Noted Date Comments Amoxicillin Itching Low 12/08/2010 Bacitracin Atopic Dermatitis 10/17/2018 Chlorpheniramine Unknown 10/17/2018 Codeine Itching 12/08/2010 Dexamethasone Unknown 06/26/2023 Eye drop Diclofenac Unknown 10/17/2018 Doxycycline Unknown 10/17/2018 Etodolac Unknown Low 10/17/2018 Guaifenesin Hives 12/08/2010 Hydrocodone Unknown 10/17/2018 Influenza Vaccines Nausea and Vomiting 09/15/19 21 Iodine Shortness of Breath,Palpitations,Unknown High 12/08/2010 Latex Rash Low 10/17/2018 Pregabalin Unknown 09/15/2020 Hydroxybenzoate Hives 12/08/2010 Misoprostol Unknown 10/17/2018 Moxifloxacin Swelling 12/08/2010 Neomycin Unknown 10/17/2018 Polymyxin B Unknown 10/17/2018 Sulfa Antibiotics Unknown 07/05/2016 Tape Atopic Dermatitis,Co ntact Dermatitis Low 10/17/2018 Medications dorzolamide-timol ol 22.3-6.8 MG/ML Solution Place 1 drop into both eyes 2 (two) times daily. 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 1 kit 08/04/20 21 Active Lancets MiscIndications:C ontrolled type 2 diabetes mellitus with diabetic polyneuropathy, without long-term current use of insulin ([facility]) Use as directed 100 each 3 08/04/20 21 Active CONTOUR NEXT TEST test stripIndications: Controlled type 2 diabetes mellitus with diabetic polyneuropathy, without long-term current use of insulin ([facility] H[facility]) USE TO TEST BLOOD SUGARS ONCE DAILY 100 strip 7 10/24/19 23 Active ondansetron (ZOFRAN-ODT) 4 MG disintegrating tabletIndications :Nausea Take 1 tablet (4 mg total) by mouth every 8 (eight) hours as needed for Nausea. 20 tablet 03/13/20 23 Active aspirin EC (ECOTRIN) 81 MG tablet Take 1 tablet (81 mg total) by mouth daily. Active apixaban (ELIQUIS) 5 MG tabletIndications :Acute pulmonary embolism without acute cor pulmonale, unspecified pulmonary embolism type ([facility]) TAKE 1 TABLET BY MOUTH TWICE A DAY 180 tablet 08/21/20 23 Active albuterol sulfate HFA 108 (90 Base) MCG/ACT inhalerIndication s:Pulmonary emphysema, unspecified emphysema type ([facility]) INHALE 1 PUFF INTO THE LUNGS EVERY 4 (FOUR) HOURS NEEDED FOR SHORTNESS OF BREATH OR WHEEZING. 18 g 1 02/01/20 24 Active Cholecalciferol (D2000 ULTRA STRENGTH) 50 MCG (2000 UT) Cap Take 2,000 Units by mouth daily. Active Multiple Vitamins-Minerals (PRESERVISION AREDS 2 OR) Active atorvastatin (LIPITOR) 80 MG tabletIndications :Hyperlipidemia associated with type 2 diabetes mellitus ([facility]) Take 1 tablet (80 mg total) by mouth nightly at bedtime. 90 tablet 3 04/16/20 24 Active pantoprazole EC (PROTONIX) 40 MG tabletIndications :Epigastric abdominal pain,Lower abdominal pain,Elevated lipase TAKE 1 TABLET BY MOUTH TWICE A DAY 180 tablet 08/05/20 24 Active montelukast (SINGULAIR) 10 MG tabletIndications :Pulmonary emphysema, unspecified emphysema type ([facility] HHS/HCC) TAKE 1 TABLET BY MOUTH EVERY DAY 90 tablet 1 10/16/19 25 Active olmesartan (BENICAR) 40 MG tabletIndications :Hypertension TAKE 1 TABLET BY MOUTH EVERY DAY 90 tablet 10/16/19 25 Active NIFEdipine ER (ADALAT CC) 30 MG 24 hr tablet Take 1 tablet (30 mg total) by mouth daily. 10/02/19 25 Active montelukast (SINGULAIR) 10 MG tabletIndications :Pulmonary emphysema, unspecified emphysema type (CMS/HCC HHS/HCC) Take 1 tablet (10 mg total) by mouth daily. 90 tablet 1 01/15/20 24 2024 Discontinued olmesartan (BENICAR) 40 MG tabletIndications :Hypertension Take 1 tablet (40 mg total) by mouth daily. 90 tablet 1 04/18/20 24 2024 Discontinued umeclidinium-richard nterol (ANORO ELLIPTA) 62.5-25 MCG/ACT inhalerIndication s:HESTER (dyspnea on exertion),Centril obular emphysema (CMS/HCC HHS/HCC) Inhale 1 puff into the lungs daily. 14 each 6 07/03/20 24 2024 Discontinued(A lternate therapy) Active Problems Problem Noted Date Diagnosed Date Morbid (severe) obesity due to excess calories 1 09/16/2023 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 Abnormal finding on GI tract imaging 06/28/2023 Irritable bowel syndrome with diarrhea Overview (06/21/2023): Added automatically from request for surgery [id number] Esophageal dysphagia 06/21/2023 Overview (06/21/2023): Added automatically from request for surgery [id number] GI bleed 04/25/2023 Heme positive stool 04/25/2023 Overview (04/26/2023): Added automatically from request for surgery [id number] Melena 04/25/2023 Overview (04/26/2023): Added automatically from request for surgery [id number] Hematochezia 04/25/2023 Overview (04/26/2023): Added automatically from request for surgery [id number] Acute blood loss anemia 04/25/2023 Overview (04/26/2023): Added automatically from request for surgery [id number] PAD (peripheral artery disease) 03/06/2023 S/P CABG x 3 01/06/2023 Coronary artery disease of n ative heart with stable angina pectoris 11/22/2022 Overview (12/02/2022): Added automatically from request for surgery [id number] Other pulmonary embolism wit h acute cor pulmonale, unspecified chronicity ([facility]) 01/07/2022 Chronic anticoagulation 01/07/2022 Coronary artery calcification seen on CT scan Mixed diabetic hyperlipidemi a associated with type 2 diabetes mellitus ([facility]) 01/07/2022 Atypical chest pain 12/31/2021 COPD (chronic obstructive pu lmonary disease) ([facility]) 12/31/2021 Grade II diastolic dysfunction 03/21/2021 Risk for falls 03/07/2021 Pulmonary hypertension ([facility]) 021 Rheumatoid arthritis, involv ing unspecified site, unspecified whether rheumatoid factor present ([facility]) 03/01/2021 Stage 3a chronic kidney disease ([facility] ) 11/06/2020 Pulmonary nodule 10/11/2020 Abdominal aortic atherosclerosis 10/04/2020 Peripheral neuropathy 09/15/2020 Unspecified inflammation of eyelid 12/23/2016 Periorbital edema 12/19/2016 Herpes zoster 11/08/2016 Abscess of axilla, left 06/24/2016 Pneumonia 01/29/2016 Pulmonary emphysema ([facility]) 01/28/2016 Overview (09/15/2020): Annotation - 05Oct2016: Annotation: Emphysema/COPD (J43.9); Impression - 05Oct2016 Shweta Guerrero: Impression: Stable based upon sx and exam. Continue current treatment plan and f/u at least yearly.; Description: Emphysema/COPD (J43.9) Hemoptysis 01/28/2016 Chronic vertigo 11/03/2015 Glaucoma 11/03/2015 Hypertension associated with type 2 diabetes mellitus ([facility]/HCC) 11/03/2015 Diabetes type 2, controlled ([facility]) Overview (09/15/2020): Annotation - 05Oct2016: Annotation: Diabetes type 2, controlled (E11.9); Impression - 05Oct2016 Shweta Guerrero: Impression: Stable based on lab values and symptoms. Continue present treatment plan, control of risk factors and recheck at least yearly.; Description: Diabetes type 2, controlled (E11.9) Hyperlipidemia 11/03/2015 Resolved Problems Problem Noted Date Diagnosed Date Resolved Date Morbid obesity due to excess calories ([facility]) 03/01/2021 03/06/2023 Encounter for vitamin deficiency screening 07/11/2017 09/21/2020 Need for hepatitis C screening test 07/11/2017 09/21/2020 Immunization due 07/11/2017 09/21/2020 Hematuria 01/19/2017 03/06/2023 Need for vaccination with 13 -polyvalent pneumococcal conjugate vaccine 09/16/2016 Encounter for screening mamm ogram for breast cancer 01/28/2016 09/21/2020 Encounter for preventive health examination 08/19/2015 09/21/2020 Encounters Date Type Department Care Team Description 10/17/2024 9:40 AM EXERCISE PHYSIOLOGIST Office Visit [facility] [address] [phone] Leatha Chapa, DO Diabetes; Hypertension; Hyperlipidemia 10/17/2024 Travel 10/03/2024 Scan [employer] HEALTH INFO SRVCS Scanned, [facility] 09/18/2024 Telephone [facility] [address] [phone] Letaha Chapa, DO Referral 09/17/2024 Telephone [facility] [address] [phone] Leatha Chapa, DO Referral 08/13/2024 Telephone [facility] [id number] [place] [phone] Arun Silva DO FYI from Last 3 Months Immunizations Name Administration Dates Next Due H1N1 Injectable 2009 Influenza 09/25/2009 Influenza (Generic) 08/18/2009,08/01/2008 Influenza Adult (Generic) 12/01/2021(Deferred: P atient Refused) Pneumococcal (Pneumovax 23) 12/14/2020, 8 Pneumococcal (Prevnar 13) 07/28/2016 Shingrix 09/30/2022,04/01/2022 Td 03/22/2006 Tdap (Generic) 09/29/2022 Family History Medical History Relation Comments back pain Brother Cancer Father Cancer Mother Relation Status Comments Brother Alive Father Mother Social History Tobacco Use Types Packs/Day Years Used Date Smoking Tobacco: Former Cigarettes 1 40 1 977 - 2017 Passive Smoke Exposure: Never Smokeless Tobacco: Never Tobacco Cessation:Counseling Given: Yes Comments:Not a smoker Alcohol Use Standard Drinks/Week Comments Never 0 (1 standard drink = 0.6 oz pur e alcohol) Humiliation, Afraid, Rape, and Kick questionnair e Answer Date Recorded Within the last year, have y ou been afraid of your partner or ex-partner? No 04/25/2023 Within the last year, have y ou been humiliated or emotionally abused in other ways by your partner or ex-partner? No Within the last year, have y ou been kicked, hit, slapped, or otherwise physically hurt by your partner or ex-partner? No 04/25/2023 Within the last year, have y ou been raped or forced to have any kind of sexual activity by your partner or ex-partner? No 04/25/2023 Social Connection and Isolation Panel [NHANES] A nswer Date Recorded In a typical week, how many times do you talk on the phone with family, friends, or neighbors? Once a week 04/25/20 How often do you get togethe r with friends or relatives? Once a week 04/25/2023 How often do you attend [facility] or confucianism services? 1 to 4 times per year 04/25/2023 Do you belong to any clubs o r organizations such as sabianist groups, unions, fraternal or athletic groups, or school groups? No 04/25/2023 How often do you attend meet ings of the clubs or organizations you belong to? 1 to 4 times per year 04/25/2023 Are you , , di vorced, , never , or living with a partner? 04/25/2023 AUDIT-C Answer Date Recorded Q1: How often do you have a drink containing alcohol? Never 04/25/2023 Q2: How many drinks containi ng alcohol do you have on a typical day when you are drinking? Patient does not drink Q3: How often do you have si x or more drinks on one occasion? Never 04/25/2023 Overall Financial Resource Strain (CARDIA) Answe r Date Recorded How hard is it for you to pa y for the very basics like food, housing, medical care, and heating? Not hard at all 04/25/2023 PHQ-2 Answer Date Recorded Patient Health Questionnaire-2 Score 0 10/17/2024 [facility] - Occupational Stress Questionnaire Answer Date Recorded Do you feel stress - tense, restless, nervous, or anxious, or unable to sleep at night because your mind is troubled all the time - these days? Only a little 04/25/2023 Exercise Vital Sign Answer Date Recorde d On average, how many days pe r week do you engage in moderate to strenuous exercise (like a brisk walk)? 0 days 04/25/2023 On average, how many minutes do you engage in exercise at this level? 0 min 04/25/2023 Hunger Vital Sign Answer Date Recorded Within the past 12 months, y ou worried that your food would run out before you got the money to buy more. Never true 04/25/20 23 Within the past 12 months, t he food you bought just didn't last and you didn't have money to get more. Never true 04/25/2023 PRAPARE - Transportation Answer Date Re corded In the past 12 months, has l ack of transportation kept you from medical appointments or from getting medications? No 04/11 In the past 12 months, has l ack of transportation kept you from meetings, work, or from getting things needed for daily living? No 04/25/2023 Housing Stability Vital Sign Answer Israel e Recorded In the last 12 months, was t here a time when you were not able to pay the mortgage or rent on time? No 04/25/2023 In the last 12 months, how many places have you lived? 1 04/25/2023 In the last 12 months, was t here a time when you did not have a steady place to sleep or slept in a penitentiary (including now)? No 04/25/2023 Comments No Sex and Gender Information Value Date Recorded Sex Assigned at Female 10/17/2024 9:48 AM EXERCISE PHYSIOLOGIST Legal Sex Female 6:52 PM CDT Gender Identity Female 10/17/2024 9:48 AM EXERCISE PHYSIOLOGIST Sexual Orientation Not on file Last Filed Vital Signs Vital Sign Reading Time Taken Comments Blood Pressure 136/58 10/17/2024 9:51 AM EXERCISE PHYSIOLOGIST Pulse 64 10/17/2024 9:51 AM EXERCISE PHYSIOLOGIST Temperature 36.4 C (97.6 F) 10/17/2024 9:51 AM EXERCISE PHYSIOLOGIST Respiratory Rate 16 10/17/2024 9:51 AM EXERCISE PHYSIOLOGIST Oxygen Saturation 96% 10/17/2024 9:51 AM EXERCISE PHYSIOLOGIST Inhaled Oxygen Concentration - - Weight 82.2 kg (181 lb 4.8 oz) 10/17/2024 9:51 A M EXERCISE PHYSIOLOGIST Height 152.4 cm (5') 10/17/2024 9:51 AM EXERCISE PHYSIOLOGIST Body Mass Index 35.41 10/17/2024 9:51 AM EXERCISE PHYSIOLOGIST Plan of Treatment Upcoming Encounters Date Type Department Care Team (Late st Contact Info) Description 11/21/2024 12:45 PM CDT Appointment Spr[facility] [address] [place], [place] [phone] Arun Silva DO [address] [facility] [address] [place] [address] 11/27/2024 10:00 AM CDT Office Visit [facility] [address] [place] [phone] Arun Silva, DO [address] [facility] [address] [place] [address] 01/14/2025 10:20 AM CDT Laboratory Only [facility] [address] [phone] [place] [address] [place] [phone] 01/23/2025 9:20 AM CDT Office Visit [facility] [address] [phone] Leatha Chapa, [address] [place] [address] Health Maintenance Due Date Last Done Comments Annual Medicare Wellness Visit 08/05/2022 08/04/2021 Diabetes: Retinopathy Eye Exam 11/04/2022 11/04/2020 Mammogram Screening 10/04/2024 10/04/2023, 03/29/2022, 10/07/2020, Additional history exists Lung Cancer Screening 11/19/2024 11/20/2023, 023 Kidney Health Evaluation 01/14/2025 01/15/2024 Lipid Panel 02/25/2025 02/26/2024, 0 02/2024, 11/24/2022, Additional history exists Hemoglobin A1C 04/16/2025 10/17/2024, 02/2024, 04/16/2024, Additional history exists COVID-19 Vaccine ( season) 2025 Postponed from 05/12/2024 (Patient Refused) Influenza Adult (#1) 2025 09/25/2009, 08/18/2009, 08/01/2008 Postponed from 06/11/2024 (Patient Refused) RSV Immunization or 60+ Years (1 - Risk 60-74 years 1-dose series) 07/17/2025 Postponed fro m 2010 (Patient Refused) DTaP, Tdap and Td Vaccines (2 - Td or Tdap) 09/29/2032 09/29/2022, 03/22/2006 Colorectal Cancer Screening Colonoscopy (10 Years) 06/26/2033 06/26/2023, 04/27/2023, 04/26/2023, Additional history exists Pneumococcal Vaccine: 65+ Years Completed 12/14/2020, 07/28/2016, 08/01/2008 Hepatitis C Completed 12/02/2021 Dexa Scan (General) Completed 09/13/2022, 7 Zoster Vaccines Completed 09/30/2022, 04/01/2022 PHQ-2 (Physician [place]) Completed 10/17/2024 Meningococcal B Vaccine Aged Out No l onger eligible based on patient's age to complete this topic Meningococcal Vaccine Aged Out No keenan daron eligible based on patient's age to complete this topic RSV Immunizations Under 20 Months Aged Out No longer eligible based on patient's age to complete this topic Goals Goal Patient Goal Type Associated Problems Recent Progress Patient-Stated? Author Establish Regular Follow-Ups with PCP Lifestyle On track( 023 10:35 AM CDT) No Brooklyn Oliva, ASHLEE Establish Plan for Symptom Monitoring Lifestyle On track( 023 10:35 AM CDT) No Brooklyn Oliva, RN Note: Monitor for s/sx of GI Bleed. Report new or worsening symptoms to pcp/specialist. Take medications as prescribed. Procedures Procedure Name Priority Date/Time Associated Diagnosis Comments COLLECT.CAPILLARY (FNGR,HEEL,EAR) Routine 10/17/2024 9:55 AM EXERCISE PHYSIOLOGIST Controlled type 2 diabetes mellitus with diabetic polyneuropathy, without long-term current use of insulin ([facility]) HEMOGLOBIN, GLYCOSYLATED Routine 10/17/2024 Controlled type 2 diabetes mellitus with diabetic polyneuropathy, without long-term current use of insulin ([facility]) LIPID PANEL Routine 01/15/2024 11:18 AM CDT Controlled type 2 diabetes mellitus with diabetic polyneuropathy, without long-term current use of insulin (CMS/HCC HHS/HCC) Hypertension associated with type 2 diabetes mellitus (CMS/HCC HHS/HCC) Mixed diabetic hyperlipidemia associated with type 2 diabetes mellitus (CMS/HCC HHS/HCC) CT CHEST WO CON Routine 11/20/2023 12:11 PM CDT Multiple lung nodules on CT MAMMOGRAM GENERIC (SCAN ORDER) 10/04/2023 COLONOSCOPY Routine 04/26/2023 3:10 PM CDT BONE DENSITY GENERIC (SCAN ORDER) 09/13/2022 HEPATITIS C ANTIBODY Routine 12/02/2021 8:38 AM CDT Need for hepatitis C screening test DIABETIC RETINOPATHY EXAM (NEGATIVE)(SCAN ORDER) Routine 11/04/2020 from Last 3 Months or Most Recently Relevant to Health Maintenance Results * (ABNORMAL) HEMOGLOBIN, GLYCOSYLATED (10/17/2024) HGB A1C 7.1(A) % [facility] 10/17/2024 us Leatha Chapa DO LABORATORY Final Re sult [facility] [address] [place] [address], * (ABNORMAL) LIPID PANEL (01/15/2024 11:18 AM CDT) CHOLESTEROL 145 <200 MG/DL 01/16/2024 9:52 AM CDT [facility] TRIGLYCERIDES 146 <150 MG/DL 01/16/2024 9:52 AM CDT [facility] HDL 50 >40 MG/DL 01/16/2024 9:52 AM CDT [facility] LDL-C 66 <100 MG/DL 01/16/2024 9:[address] [facility] VLDL CALCULATION 29(H) 5 - 28 MG/DL 01/16/2024 9:52 AM CDT [facility] CHOL/HDL RATIO 2.9 0.0 - 4.0 01/16/2024 9:[address] [facility] LDL/HDL 1.3 0.41 - 2.13 01/16/2024 9:52 AM CDT [facility] [place] NON HDL CHOLESTEROL 95 <140 MG/DL 01/16/2024 9:52 AM CDT [facility] [place] 01/15/2024 11:1 8 AM CDT Leatha Chapa DO LABORATORY Final Re sult [facility] [place] [address] [place] [address], [place] [phone] * CT CHEST WO CON (11/20/2023 12:11 PM CDT) Anatomical Region Laterality Modality Chest Computed Tomogra phy 11/30/2023 3:38 PM CDT Impressions 11/30/2023 3:56 PM CDT IMPRESSION: 1. No pathologic pulmonary nodules. Chest with similar appearance to more remote 2020 exam. Thus considered benign. 2. No pathologic lymphadenopathy on this noncontrast study. No infiltrate or pleural effusion. Similar mild scar formation. Ordered By: LEATHA CHAPA Interpreted By: Ulises Perkins, 11/30/2023 3:38 PM Narrative 11/30/2023 3:56 PM CDT EXAMINATION: CT CHEST WITHOUT CONTRAST EXAM DATE/TIME: 11/20/2023 12:03 PM REASON FOR EXAM: Lung nodules, multiple Follow-up COMPARISON: 06/27/2023. 10/01/2020 TECHNIQUE: Computed tomography was performed of the chest without intravenous contrast. A dose lowering technique was used for this procedure, which may include, but is not limited to, dose reduction technique, automated exposure control, iterative reconstruction, ALARA (As Low As Reasonably Achievable), or Image Gently techniques. FINDINGS: On lung windows, no suspicious pulmonary lesion, pneumothorax, or pleural effusion.. Stable mild scar formation in left lung base and lateral right upper lobe. Stable 6.3 mm nodule in posterior left upper lobe on image 29 of series 3. Stable probable nodular scar without increased uptake on recent PET scan in left lung apex on image 11.. Stable 3 mm nodule in right lower lobe on image 90. Other prior described possible nodules are due to scar formation and stable since prior 2020 exam.. No new lung nodules. Mild emphysematous change with scattered interstitial fibrosis. On soft tissue windows, no axillary or supraclavicular lymphadenopathy. On mediastinal windows, no evidence of hilar or mediastinal lymphadenopathy. Heart size normal. No pericardial effusion. Median sternotomy. Coronary artery calcifications. Limited evaluation of the upper abdomen demonstrates no acute abnormality. On bone windows, no suspicious skeletal lesion or acute compression fracture deformity. Procedure Note Cordell Perkins MD - 11/30/2023 EXAMINATION: CT CHEST WITHOUT CONTRAST EXAM DATE/TIME: 11/20/2023 12:03 PM REASON FOR EXAM: Lung nodules, multiple Follow-up COMPARISON: 06/27/2023. 10/01/2020 TECHNIQUE: Computed tomography was performed of the chest withoutintravenous contrast. A dose lowering technique was used for this procedure, which may include,but is not limited to, dose reduction technique, automated exposurecontrol, iterative reconstruction, ALARA (As Low As ReasonablyAchievable), or Image Gently techniques. FINDINGS: On lung windows, no suspicious pulmonary lesion, pneumothorax, or pleuraleffusion.. Stable mild scar formation in left lung base and lateral rightupper lobe. Stable 6.3 mm nodule in posterior left upper lobe on image 29 of series 3. Stable probable nodular scar without increased uptake on recent PET scanin left lung apex on image 11.. Stable 3 mm nodule in right lower lobe on image 90. Other prior described possible nodules are due to scar formation andstable since prior 2020 exam.. No new lung nodules. Mild emphysematous change with scattered interstitialfibrosis. On soft tissue windows, no axillary or supraclavicular lymphadenopathy. On mediastinal windows, no evidence of hilar or mediastinallymphadenopathy. Heart size normal. No pericardial effusion. Mediansternotomy. Coronary artery calcifications. Limited evaluation of the upper abdomen demonstrates no acuteabnormality. On bone windows, no suspicious skeletal lesion or acute compressionfracture deformity. IMPRESSION: 1. No pathologic pulmonary nodules. Chest with similar appearance to moreremote 2020 exam. Thus considered benign. 2. No pathologic lymphadenopathy on this noncontrast study. No infiltrateor pleural effusion. Similar mild scar formation. Ordered By: LEATHA CHAPA Interpreted By: Ulises Perkins, 11/30/2023 3:38 PM Leatha Chapa DO CT Final Re sult * MAMMOGRAM GENERIC (SCAN ORDER) (10/04/2023) Anatomical Region Laterality Modality Other 10/04/2023 [facility] Scanned SCANNING Final Resu lt * BONE DENSITY GENERIC (09/13/2022) Anatomical Region Laterality Modality Other 09/13/2022 [facility] Scanned SCANNING Final Resu lt * HEPATITIS C ANTIBODY (12/02/2021 8:38 AM CDT) HEPATITIS C AB NON-REACTI VE NON-REACT DC 12/02/2021 6:21 PM CDT [facility] Comment: ANTIBODIES TO HCV NOT DETECTED. DOES NOT EXCLUDE THE POSSIBILITY OF EXPOSURE TO HCV. 12/02/2021 8:38 AM CDT Leatha Chapa DO LABORATORY Final Re sult [facility] [address] [place] [address], [place] [phone] [id number] * DIABETIC RETINOPATHY EXAM (NEGATIVE)(SCAN) (11/04/2020) us Documents Scanned SCANNING Final Result [facility] * COLONOSCOPY GENERIC (10/18/2016) 10/18/2016 Narrative 10/18/2016 Ordered by an unspecified provider. us Documents Scanned SCANNING Final Result from Last 3 Months or Most Recently Relevant to Health Maintenance Insurance [employer] Advance Directives * Full Code (Latest Code Status on File) Date Activated Date Inactivated Comments 04/26/2023 1:40 AM 04/29/2023 5:39 PM Care Teams Logging Truck Driver Relationship Specialty Start Date End Date Leatha Chapa DO [address] [place] [id number] PCP - General FAMILY PRACTICE 09/15/20
--- OUTSIDE RECORDS SUMMARY | 2024-11-01 14:19 | XMS_ITS | Encounter Summary ---
Author Organization [facility] Address [facility] [place] [address] Care Team Providers Care Stack Attendant Name Role Phone Radhalibbybinu Adams Stoddard DO Primary Care Provider + Brooklyn Oliva RN Unavailable Encounter Details Date Type Department Care Team (Late st Contact Info) Description 03/08/2023 MyChart Message [facility] [address] [place], [place] [address] [facility], [facility] Provider Air Quality Message Social History Tobacco Use Types Packs/Day Years Used Date Smoking Tobacco: Former Cigarettes 1 40 1 977 2016 Smokeless Tobacco: Never Alcohol Use Standard Drinks/Week Comments Never 0 (1 standard drink = 0.6 oz pur e alcohol) AUDIT-C Answer Date Recorded Q1: How often do you have a drink containing alc ohol? Never 09/15/2020 Average Number of Drinks Not on file 021 Frequency of Binge Drinking Not on file 01/2021 PHQ-2 Answer Date Recorded Patient Health Questionnaire-2 Score 0 03/06/2023 Comments No Sex and Gender Information Value Date Recorded Sex Assigned at Female 10/17/2024 9:48 AM LAW REPORTER Legal Sex Female 6:52 PM CDT Gender Identity Female 10/17/2024 9:48 AM LAW REPORTER Sexual Orientation Not on file documented as of this encounter Plan of Treatment Upcoming Encounters Date Type Department Care Team (Late st Contact Info) Description 11/21/2024 12:[address] [place], [place] [id number] Arun Silva, DO [address] [place] [address] 11/27/2024 10:00 AM CDT Office Visit [facility] [address] [place] [address] SilvaZi vásqueznerissa, DO [address] [place] [address] 01/14/2025 10:20 AM CDT Laboratory Only [facility] [address] [phone] Adams Moses, DO [address] [place] [address] 01/23/2025 9:20 AM CDT Office Visit [facility] [address] [phone] Adams Moses, DO [address] [place] [address] documented as of this encounter Goals Goal Patient Goal Type Associated Problems Recent Progress Patient-Stated? Author Establish Regular Follow-Ups with PCP Lifestyle On track( 023 10:35 AM CDT) No Brooklyn Oliva, RN Establish Plan for Symptom Monitoring Lifestyle On track( 023 10:35 AM CDT) No Brooklyn Oliva, RN Note: Monitor for s/sx of GI Bleed. Report new or worsening symptoms to pcp/specialist. Take medications as prescribed. documented as of this encounter Visit Diagnoses Not on filedocumented in this encounter Additional Health Concerns Assessment Noted Time PHQ-9 Depression Total Score: 3 03/06/20 23 9:15 AM CDT documented as of this encounter Care Teams Stack Attendant Relationship Specialty Start Date End Date Adams Moses DO [address] [place] [address] PCP - General FAMILY PRACTICE 09/15/20 Brooklyn Oliva, RN [address] [place] [address] Formulation Scientist (Ambulatory) REGISTERED NURSE 04/26/23 documented as of this encounter
--- OUTSIDE RECORDS SUMMARY | 2024-11-01 14:19 | XMS_ITS | Encounter Summary ---
Author Organization [facility] Address [address] [place] [address] Care Team Providers Care Material Scheduler Name Role Phone Art Ashley MD Primary Care Provider Encounter Details Date Type Department Care Team (Latest Contact Info) Description 04/17/2002 Inpatient Historical HIS PATIENT IN A BED Jeison Calvillo CERVICAL SPONDYLOSIS (Primary Dx) Social History Tobacco Use Types Packs/Day Years Used Date Smoking Tobacco: Never Assessed Comments Unknown Sex and Gender Information Value Date Recorded Sex Assigned at Not on file Legal Sex Female 4:20 AM [employer]IN[employer]OUS [employer] Gender Identity Not on file Sexual Orientation Not on file documented as of this encounter Plan of Treatment Not on file documented as of this encounter Visit Diagnoses Diagnosis Cervical spondylosis without myelopathy- Primary documented in this encounter Care Teams Material Scheduler Relationship Specialty Start Date End Date Art Ashley MD [address] [place] [address] PCP - General Family Practice 12/10/10 documented as of this encounter
--- OUTSIDE RECORDS SUMMARY | 2024-11-01 14:19 | XMS_ITS | Clinical Summary ---
Author Organization [facility] [address] Address [address] [place] [address] Care Team Providers Care French Professor Name Role Phone Yemi Carrillo MD Unavailable [phone] Gopi Almaguer MD Unavailable [phone] Adams Moses DO Primary Care Provide r Eusebio Love MD Unavailable [phone] Allergies Active Allergy Reactions Criticality Noted Date Comments Adhesive Rash,Blisters High 10/17/2018 Adhesive Tape-Silicones Rash,Blisters High Amoxicillin Itching Low 12/08/2010 Bacitracin Rash Medium 10/17/2018 Chlorpheniramine Unknown 10/17/2018 Codeine Nausea only Low Dexamethasone Unknown 06/26/2023 Eye drop Diclofenac Nausea only Low Doxycycline Unknown 10/17/2018 Guaifenesin Hives High 12/08/2010 Influenza Virus Vaccines Nausea only Low 09/15/2020 Iodine Rash Medium Latex Rash Medium 10/17/2018 Methylparaben Hives Medium 12/08/2010 Methylsulfonylmethane-Herbcm b 1 Hives High 12/08/2010 Misoprostol Moxifloxacin Neomycin Rash Medium 10/17/2018 Polymyxin B Rash Medium 10/17/2018 Pregabalin Rash Medium 09/15/2020 Sulfa (Sulfonamide Antibiotics) Shortness of breath,Unknown High 07/05/2016 Medications PROAIR HFA 90 mcg/actuation inhaler Inhale 1 puff every 4 (four) hours as needed 8 Active dorzolamide-arlyn olol (COSOPT) 22.3-6.8 mg/mL ophthalmic solution Administer 1 drop into both eyes 2 (two) times a day 11 8 Active montelukast (SINGULAIR) 10 mg tablet Take 1 tablet (10 mg total) by mouth daily after lunch 2 Active Eliquis 5 mg tablet Take 1 tablet (5 mg total) by mouth 2 (two) times a day 2 Active Contour Next Test Strips strip USE TO TEST BLOOD SUGARS ONCE DAILY 3 Active LANCETS MISC as directed 1 Active acetaminophen 500 mg capsule Take 2 capsules (1,000 mg total) by mouth every 6 (six) hours as needed for pain 30 tablet 3 Active polyethylene glycol (MIRALAX) 17 gram packetIndicatio ns:constipation Take 1 packet (17 g total) by mouth daily as needed for constipation 3 Active atorvastatin (LIPITOR) 80 mg tablet Take 1 tablet (80 mg total) by mouth daily 90 tablet [address] (PROTONIX) 40 mg EC tablet Take 1 tablet (40 mg total) by mouth daily 3 Active aspirin (Enteric Coated Aspirin) 81 mg enteric coated tabletIndicatio ns:Coronary artery disease involving [place] coronary artery of [place] heart without angina pectoris Take 1 tablet (81 mg total) by mouth daily 3 Active olmesartan (BENICAR) 20 mg tablet Take 2 tablets (40 mg total) by mouth daily 3 Active cholecalciferol (Vitamin D3) 2000 unit capsule Take 1 capsule (2,000 Units total) by mouth daily Active NIFEdipine (NIFEdipine CC) 30 mg 24 hr tablet Take 1 tablet (30 mg total) by mouth nightly 90 tablet 6 5 Active Active Problems Problem Noted Date Diagnosed Date 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 Hx of CABG 02/14/2023 Other chest pain 10/11/2022 Pulmonary embolus 04/26/2022 History of pulmonary embolism 04/05/2022 Acute pulmonary embolism 01/07/2022 Chronic anticoagulation 01/07/2022 Mixed diabetic hyperlipidemi a associated with type 2 diabetes mellitus 01/07/2022 Morbid (severe) obesity due to excess calories 0 01/07/2022 COPD (chronic obstructive pulmonary disease) Grade II diastolic dysfunction 03/21/2021 Pulmonary hypertension 03/01/2021 Obesity, diabetes, and hypertension syndrome Rheumatoid arthritis(714.0) 03/01/2021 Coronary artery disease invo lving [place] coronary artery of [place] heart without angina pectoris 03/01/2021 Peripheral vascular disease 03/01/2021 Stage 3a chronic kidney disease 11/06/2020 Pulmonary nodule 10/11/2020 Abdominal aortic atherosclerosis 10/04/2020 Peripheral neuropathy 09/15/2020 Right knee pain 09/15/2020 UTI (urinary tract infection) 01/23/2017 Hematuria 01/19/2017 Leukocytes in urine 01/19/2017 Unspecified inflammation of eyelid 12/23/2016 Chronic conjunctivitis 12/19/2016 Eye pain 12/19/2016 Periorbital edema 12/19/2016 Herpes zoster 11/08/2016 URI, acute 10/05/2016 Abdominal pain 08/30/2016 Abscess of axilla, left 06/24/2016 Pneumonia 01/29/2016 Hemoptysis 01/28/2016 Pulmonary emphysema 01/28/2016 Overview (12/07/2022): Annotation - 05Oct2016: Annotation: Emphysema/COPD (J43.9); Impression - 05Oct2016 Shweta Guerrero: Impression: Stable based upon sx and exam. Continue current treatment plan and f/u at least yearly.; Description: Emphysema/COPD (J43.9) Annotation - 05Oct2016: Annotation: Emphysema/COPD (J43.9); Impression - 05Oct2016 Shweta Guerrero: Impression: Stable based upon sx and exam. Continue current treatment plan and f/u at least yearly.; Description: Emphysema/COPD (J43.9) Chronic vertigo 11/03/2015 Diabetes type 2, controlled 11/03/2015 Overview (12/07/2022): Annotation - 05Oct2016: Annotation: Diabetes type 2, controlled (E11.9); Impression - 05Oct2016 Shweta Guerrero: Impression: Stable based on lab values and symptoms. Continue present treatment plan, control of risk factors and recheck at least yearly.; Description: Diabetes type 2, controlled (E11.9) Annotation - 05Oct2016: Annotation: Diabetes type 2, controlled (E11.9); Impression - 05Oct2016 Shweta Guerrero: Impression: Stable based on lab values and symptoms. Continue present treatment plan, control of risk factors and recheck at least yearly.; Description: Diabetes type 2, controlled (E11.9) Glaucoma 11/03/2015 Hypertension associated with type 2 diabetes jessica litus 11/03/2015 Resolved Problems Problem Noted Date Diagnosed Date Resolved Date CAD in [place] artery 12/22/2022 023 Coronary artery disease of n ative heart with stable angina pectoris 11/22/2022 08/25/2023 Overview (11/22/2022): Added automatically from request for surgery [id number] Coronary artery calcification seen on CT scan 01/08/2008/25/2023 Hypertension associated with diabetes 01/07/2022 02/14/2023 Atypical chest pain 12/31/2021 08/25/20 Hyperlipidemia 11/03/2015 08/25/2023 Encounters Date Type Department Care Team Description 10/02/2024 10:45 AM CITY MANAGER Office Visit [facility] Cardiology [address] [place] [address] Lamont Jang MD Coronary artery disease involving [place] coronary artery of [place] heart without angina pectoris (Primary Dx); S/P CABG x 3; Hypertension associated with type 2 diabetes mellitus (HCC); History of pulmonary embolism; Chronic anticoagulation from Last 3 Months Surgical History Surgery Date Site/Laterality Comments CATARACT EXTRACTION Bilateral Left 2003 and Right 2010 SPINE SURGERY 09/11/2001 - 09/10/2002 cervical w/ iliac crest bone graft CHOLECYSTECTOMY 09/11/1973 - 09/10/1974 HYSTERECTOMY 09/11/1986 - 09/10/1987 BREAST SURGERY 09/11/2005 - 09/10/2006 Right biopsy CYST REMOVAL Right axilla COLONOSCOPY 09/11/2022 - 09/10/2023 CARDIAC CATHETERIZATION x2 CORONARY ARTERY BYPASS GRAFT 09/11/2022 - 09/10/2023 APPENDECTOMY 09/11/1973 - 09/10/1974 Medical History Medical History Date Comments Chest pain Diabetes mellitus (HCC) Hyperlipidemia Hypertension COPD (chronic obstructive pulmonary disease) (HC C) Asthma Glaucoma Neuropathy (CMS/HCC) Family History Medical History Relation Name Comments Cancer Brother Colon polyps Brother Heart disease Brother Cancer Father Cancer Mother Cancer Sister Heart disease Sister Sheree's disease Sister Relation Name Status Comments Brother Father Mother Sister Social History Tobacco Use Types Packs/Day Years Used Date Smoking Tobacco: Former Cigarettes Q uit: 2017 Smokeless Tobacco: Never Tobacco Cessation:Counseling Given: Not Answered OASIS D0700: Social Isolation Answer Da te Recorded Frequency of experiencing loneliness or isolatio n Never 01/24/2023 OASIS A1250: Transportation Answer Date Recorded Lack of Transportation (Medical) No 01/24/2023 Lack of Transportation (Non-Medical) No 01/24/2023 Patient Unable or Declines to Respond No 01/24/2023 OASIS B1300: Health Literacy Answer Israel e Recorded Frequency of needing help to read materials from doctor or pharmacy Never 01/24/2023 Social Connection and Isolat ion Panel [NHANES] Answer Date Recorded In a typical week, how many times do you talk on the phone with family, friends, or neighbors? More than three times a week 12/23/2022 How often do you get togethe r with friends or relatives? More than three times a week 12/23/2022 Attends Confucianist Services Not on file 12/23 Active Member of Clubs or Organizations Not on f ile 12/23/2022 Attends Club or Organization Meetings Not on faith e 12/23/2022 Are you , , di vorced, , never , or living with a partner? 12/23/2022 Overall Financial Resource Strain (CARDIA) Answe r Date Recorded How hard is it for you to pa y for the very basics like food, housing, medical care, and heating? Not hard at all 12/23/2022 PHQ-2 Answer Date Recorded PHQ-2 Total Score (If total score is 3 or more points, staff should administer the PHQ-9) 0 03/02/2023 Hunger Vital Sign Answer Date Recorded Within the past 12 months, y ou worried that your food would run out before you got the money to buy more. Never true 12/24/19 23 Within the past 12 months, t he food you bought just didn't last and you didn't have money to get more. Never true 12/23/2022 PRAPARE - Transportation Answer Date Re corded In the past 12 months, has l ack of transportation kept you from medical appointments or from getting medications? No 12/10 In the past 12 months, has l ack of transportation kept you from meetings, work, or from getting things needed for daily living? No 12/23/2022 Housing Stability Vital Sign Answer Israel e Recorded In the last 12 months, was t here a time when you were not able to pay the mortgage or rent on time? No 12/23/2022 Number of Places Lived in the Last Year Not on f ile 12/23/2022 In the last 12 months, was t here a time when you did not have a steady place to sleep or slept in a alf (including now)? No 12/23/2022 Personal Safety Answer Date Recorded Have you ever been in or are you currently in a harmful physical or emotional relationship or is someone making you feel afraid or unsafe? Denies 03/13/2023 Comments Unknown Sex and Gender Information Value Date Recorded Sex Assigned at Not on file Legal Sex Female 12:25 AM CITY MANAGER Gender Identity Female 09/27/2023 3:25 PM CITY MANAGER Sexual Orientation Not on file Obstetrics History Last Filed Vital Signs Vital Sign Reading Time Taken Comments Blood Pressure 144/86 10/02/2024 10:56 AM CITY MANAGER Pulse 57 10/02/2024 10:56 AM CITY MANAGER Temperature 36.7 C (98.1 F) 03/13/2023 6:51 PM CDT Respiratory Rate 17 03/13/2023 6:51 PM CDT Oxygen Saturation 98% 10/02/2024 10:56 AM CITY MANAGER Inhaled Oxygen Concentration - - Weight 82.1 kg (181 lb) 10/02/2024 10:56 AM CITY MANAGER Height 152.4 cm (5') 10/02/2024 10:56 AM CITY MANAGER Body Mass Index 35.35 10/02/2024 10:56 AM CITY MANAGER Plan of Treatment Health Maintenance Due Date Last Done Comments Albumin Creatinine Ratio, Urine 1950 Breast Cancer Screening-Mammogram 1950 Hepatitis C Screening 1950 Osteoporosis Screening-Bone Density Scan 1950 Dilated Eye Exam 1950 Foot Exam 1950 Hepatitis B Screening 1968 Well Visit 65+ 2015 Hemoglobin A1C 06/10/2023 12/08/2022 Fall Risk Assessment 12/30/2023 12/29/2022, 01/11/20 18 eGFR 01/06/2024 01/05/2023, 12/11, 12/28/2022, Additional history exists Depression Screening 03/02/2024 03/02/2023 Influenza Vaccine (#1) 2024 08/18/2009, 2007 Lipid Panel 02/25/2025 02/26/2024, 05/0 02/2024, 11/24/2022, Additional history exists DTaP/Tdap/Td Vaccine (2 - Td or Tdap) 09/29/2032 09/29/2022, 03/22/2006 Colon Cancer Screening-Colonoscopy 09/13/2033 09/13/2023 Pneumococcal vaccine 65+ Completed 021, 07/28/2016, 08/01/2008 Zoster Vaccine Completed 09/30/2022, 04/01/2022 Colon Cancer Screening-CT Colonography Discontinued 09/13/2023 Colon Cancer Screening-DNA Stool Discontinued 09/13/19 24 Colon Cancer Screening-FIT Discontinued 09/13/2023 Colon Cancer Screening-Sigmoidoscopy Discontinued 09/13/2023 Procedures Procedure Name Priority Date/Time Associated Diagnosis Comments ELECTROCARDIOGRAM REPORT Routine 10/02/2024 1:30 PM CITY MANAGER Coronary artery disease involving [place] coronary artery of [place] heart without angina pectoris POCT LIPID PANEL Routine 02/26/2024 9:39 AM CDT Lipid screening CT VIRTUAL COLONOSCOPY DIAGNOSTIC WO CONTRAST Schedule Routine, Read Routine (OP Routine) 09/13/2023 2:02 PM CITY MANAGER Screening for malignant neoplasm of colon EGFR STAT 01/05/2023 1:00 PM CDT HEMOGLOBIN A1C Routine 12/08/2022 9:30 AM CDT Preop testing Controlled diabetes mellitus type 2 with complications, 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 (HCC) from Last 3 Months or Most Recently Relevant to Health Maintenance Results * Electrocardiogram Report (10/02/2024 1:30 PM CITY MANAGER) Lamont Jang MD ECG ORDERABLES Edited Result - Final * POCT lipid panel (02/26/2024 9:39 AM CDT) Cholesterol, POC 138 mg/dL HDL, POC 43 mg/dL Triglycerides, POC 181 mg/dL LDL Cholesterol POC 59 mg/dL Chol/HDL Ratio, POC 1.4 Non-HDL Cholesterol, POC 96 mg/dL Cholesterol Total, POC 138 mg/dL Capillary blood 02/26/2024 9 :39 AM CDT Pearl Luciano NP POINT OF CARE TEST ORDERA BLES Final Result * CT Colonoscopy Diagnostic WO Contrast (09/13/2023 2:02 PM CITY MANAGER) Anatomical Region Laterality Modality Body N/A Computed Tomogra phy 09/13/2023 2:59 PM CITY MANAGER Impressions 09/14/2023 8:06 AM CITY MANAGER Colon: 7 mm sessile polyp involving the high rectum (series 3, image 396), adjacent to a rectal fold. Of note, there was incomplete distention of the hepatic flexure and portions of the sigmoid colon, as well as extensive sigmoid diverticulosis, limiting evaluation. Extracolonic Findings: E2: Clinically unimportant finding, no workup indicated. Dictated by: Viral Elliott MD, Ph.D The radiology attending physician has personally reviewed this study, and had reviewed and/or edited this written report and agrees with it. Electronically signed by: Linda Thayer M.D. Narrative 09/14/2023 8:06 AM CITY MANAGER EXAMINATION: CT colonography without intravenous contrast HISTORY: 73-year-old woman with positive Cologuard and incomplete colonoscopies. Presented with GI bleeds. TECHNIQUE: Transaxial computed tomographic images through the abdomen and pelvis were obtained without intravenous contrast after insufflation of the colon with CO2 through a rectal catheter. Images were obtained in the supine and right lateral decubitus positions. COMPARISON: None FINDINGS: The following findings are reported according to the CT Colonography Reporting and Data System (C-RADS) from Radiology 2005; 236:3-9. Colonic preparation and distention: Inadequate distention involving portions of the sigmoid colon and the hepatic flexure ; as a result, evaluation for polyps less than 1 cm is limited. Colonic findings: There is extensive colonic diverticulosis, predominantly involving the sigmoid colon. There is a 7 mm sessile polyp involving the high rectum (series 3, image 396), adjacent to a rectal fold. Extracolonic findings: This CT examination is performed without intravenous contrast and with a low dose technique optimized for evaluation of the colon. Circumferential atherosclerotic calcifications of the abdominal aorta, without aneurysm. Coronary artery disease, post surgical changes of CABG. Procedure Note Linda Thayer MD - 09/14/2023 EXAMINATION: CT colonography without intravenous contrast HISTORY: 73-year-old woman with positive Cologuard and incomplete colonoscopies. Presented with GI bleeds. TECHNIQUE: Transaxial computed tomographic images through the abdomen and pelvis were obtained without intravenous contrast after insufflation of the colon with CO2 through a rectal catheter. Images were obtained in the supine and right lateral decubitus positions. COMPARISON: None FINDINGS: The following findings are reported according to the CT Colonography Reporting and Data System (C-RADS) from Radiology 2005; 236:3-9. Colonic preparation and distention: Inadequate distention involving portions of the sigmoid colon and the hepatic flexure ; as a result, evaluation for polyps less than 1 cm is limited. Colonic findings: There is extensive colonic diverticulosis, predominantly involving the sigmoid colon. There is a 7 mm sessile polyp involving the high rectum (series 3, image 396), adjacent to a rectal fold. Extracolonic findings: This CT examination is performed without intravenous contrast and with a low dose technique optimized for evaluation of the colon. Circumferential atherosclerotic calcifications of the abdominal aorta, without aneurysm. Coronary artery disease, post surgical changes of CABG. IMPRESSION: Colon: 7 mm sessile polyp involving the high rectum (series 3, image 396), adjacent to a rectal fold. Of note, there was incomplete distention of the hepatic flexure and portions of the sigmoid colon, as well as extensive sigmoid diverticulosis, limiting evaluation. Extracolonic Findings: E2: Clinically unimportant finding, no workup indicated. Dictated by: Viral Elliott MD, Ph.D The radiology attending physician has personally reviewed this study, and had reviewed and/or edited this written report and agrees with it. Electronically signed by: Linda Thayer M.D. us Eusebio Love MD IMG CT PROCEDURES Final Result * (ABNORMAL) eGFR (01/05/2023 1:00 PM CDT) eGFR 55(L) 90 - 130 mL/min/1. 73 m2 JAYY ANDERSON Comment: Interpretive Data Reference Interval Normal >/= 90 mL/min/1.73m2 Mildly decreased* 60 - 89 mL/min/1.73m2 Mildly to moderately decreased 45 - 59 mL/min/1.73m2 Moderately to severely decreased 30 - 44 mL/min/1.73m2 Severely decreased 15 - 29 mL/min/1.73m2 Kidney Failure < 15 mL/min/1.73m2 *Relative to young adult level Estimated glomerular filtration rate is determined by the 2020 CKD-EPI equation recommended by the National Kidney Foundation (A Unifying Approach to GFR Estimation: Recommendations of the NKF-ASK Task Force on Reassessing the Inclusion of Race in Diagnosing Kidney Disease, JASN 2020). The CKD-EPI equation should not be used for patients with unstable renal function and has not been validated in children and those over 70. Current interpretive data was last reviewed 2021. Blood 01/05/2023 1:00 PM CDT 01/05/2023 3:01 PM CDT us Yemi Carrillo MD LAB BLOOD ORDERABLES Final R esult JAYY ANDERSON [facility] Department [place] [address] * (ABNORMAL) Hemoglobin A1c (12/08/2022 9:30 AM CDT) Hgb A1C 6.8(H) 4.0 - 5.6 % JAYY RIVERA Estimated Average Glucose 148 mg/dL JAYY RIVERA Comment: The ADA recommends reporting an estimated Average Glucose (eAG) with all Hemoglobin A1c results using the equation derived from a study of 507 normal and diabetic adults. Minority populations were underrepresented and children were not included. (Diabetes Care 31:6574-5655, 2008). The eAG is not equivalent to a fasting glucose. Blood 12/08/2022 9:30 AM CDT 12/08/2022 9:41 AM CDT Yemi Carrillo MD LAB BLOOD ORDERABLES Final R esult JAYY RIVERA [address] Department [place] [address] from Last 3 Months or Most Recently Relevant to Health Maintenance Insurance [facility] Advance Directives For more information, please contact: [phone] Documents on File Type Date Recorded Patient Tong Setter Expl anation ADVANCE DIRECTIVE 06/30/2023 7:04 PM * Full Code (Latest Code Status on File) Date Activated Date Inactivated Comments 12/22/2022 1:45 PM 12/29/2022 8:26 PM Care Teams French Professor Relationship Specialty Start Date End Date Adams Moses DO [address] [place] [address] PCP - General Family Medicine 07/28/23 [place] [address] [facility] [place] [address] Surgeon Cardiothoracic Surgery 12/29/22 [place] [address] [facility] [place] [address] Consulting Physician Cardiology 12/29/22 Eusebio Love MD [id number] [place] [address] Surgeon Colon and Rectal Surgery 08/10/23
--- OUTSIDE RECORDS SUMMARY | 2024-11-01 14:19 | XMS_ITS | Clinical Summary ---
Author Organization [facility] Address [address], [facility] [address] [place] [address] Phone Care Team Providers Care Film Spooler Name Role Phone Adams Moses DO Primary Care Provider + Kilo Zamudio DO Unavailable Allergies Active Allergy Reactions Criticality Noted Date Comments Amoxicillin Itching Low 12/08/2010 Bacitracin Rash,Other (see Comments) Low 10/17/2018 Chlorpheniramine Unknown 10/17/2018 Codeine Itching Low 12/08/2010 Dexamethasone Unknown 06/26/2023 Eye drop Diclofenac Unknown 10/17/2018 Doxycycline Unknown 10/17/2018 Etodolac Unknown Low 10/17/2018 Guaifenesin Hives High 12/08/2010 Hydrocodone Unknown 10/17/2018 Hydroxybenzoate Hives 12/08/2010 Influenza Vaccines Nausea 09/15/2020 Iodine Palpitations,Shortne ss of Breath,Unknown High 12/08/2010 Latex Rash Medium 10/17/2018 Methylparaben Hives Medium 12/08/2010 Misoprostol Unknown 10/17/2018 Moxifloxacin Swelling Low 12/08/2010 Neomycin Unknown 10/17/2018 Polymyxin B Unknown 10/17/2018 Pregabalin Unknown 09/15/2020 Sulfa Antibiotics Unknown 07/05/2016 Medications albuterol 108 (90 Base) MCG/ACT Aerosol Solution INHALE 1 PUFF BY MOUTH EVERY 4 HOURS 11/11/19 18 Active dorzolamide-timolo l (COSOPT) 22.3-6.8 MG/ML Solution Place 1 Drop in affected eye(s). 01/03/20 Active Ergocalciferol 50 MCG (2000 UT) Tablet Take by mouth. 07/28/20 Active Blood Glucose Monitoring Suppl (Contour Next Monitor) w/Device Kit Patient to test blood sugar twice daily. 08/04/20 Active montelukast (SINGULAIR) 10 MG Tablet Take 10 mg by mouth. 12/17/19 Active clopidogrel (PLAVIX) 75 MG Tablet Take 75 mg by mouth daily. 12/30/19 Active pantoprazole (PROTONIX) 40 MG Tablet Delayed Response TAKE 2 TABLETS BY MOUTH EVERY DAY 05/29/20 Active ferrous sulfate 325 (65 Fe) MG Tablet Take 325 mg by mouth daily. 05/29/20 Active Cyanocobalamin 50 MCG Tablet Take 1 Tablet by mouth daily. Active aspirin EC 81 MG Tablet Delayed Response Take 81 mg by mouth daily. 04/17/20 Active atorvastatin (LIPITOR) 80 MG Tablet Take 80 mg by mouth daily. Active Umeclidinium-Vilan terol (ANORO ELLIPTA) 62.5-25 MCG/ACT AEROSOL POWDER, BREATH ACTIVATED take 1 Puff by inhalation. 07/03/20 Active Olmesartan Medoxomil 40 MG Tablet Take 40 mg by mouth daily. Active apixaban (ELIQUIS) 5 MG TabletIndications: History of Thromboembolic Disease Take 1 Tablet by mouth 2 times daily. Indications: History of Disease involving a Thrombosis or an Embolism 10/18/19 Active apixaban (ELIQUIS) 5 MG TabletIndications: History of Thromboembolic Disease Take 1 Tablet by mouth 2 times daily. Indications: History of Disease involving a Thrombosis or an Embolism 09/18/19 25 025 Discontin ued(Reord er) Active Problems Problem Noted Date Diagnosed Date Pulmonary embolus 04/26/2022 Mixed diabetic hyperlipidemi a associated with type 2 diabetes mellitus 01/07/2022 Peripheral vascular disease 03/01/2021 Pulmonary hypertension 03/01/2021 Rheumatoid arthritis 03/01/2021 Stage 3a chronic kidney disease 11/06/2020 Peripheral neuropathy 09/15/2020 Leukocytes in urine 01/19/2017 Pneumonia 01/29/2016 Pulmonary emphysema 01/28/2016 Overview (01/18/2022): Annotation - 05Oct2016: Annotation: Emphysema/COPD (J43.9); Impression - 05Oct2016 Shweta Guerrero: Impression: Stable based upon sx and exam. Continue current treatment plan and f/u at least yearly.; Description: Emphysema/COPD (J43.9) Diabetes type 2, controlled 11/03/2015 Overview (01/18/2022): Annotation - 05Oct2016: Annotation: Diabetes type 2, controlled (E11.9); Impression - 05Oct2016 Shweta Guerrero: Impression: Stable based on lab values and symptoms. Continue present treatment plan, control of risk factors and recheck at least yearly.; Description: Diabetes type 2, controlled (E11.9) Glaucoma 11/03/2015 Hyperlipidemia 11/03/2015 Chronic vertigo 11/03/2015 Encounters Date Type Department Care Team Description 10/18/2024 11:30 AM ADMISSIONS MANAGER Clinical Support [facility] [address] [address] Nurse, Cc [place] Other acute pulmonary embolism without acute cor pulmonale (HCC) (Primary Dx) 10/18/2024 Telephone [facility] [address] [address] Kilo Zamudio, DO 10/18/2024 Travel 10/15/2024 Telephone [facility] [address] [address] Kilo Zamudio, DO 09/18/2024 12:00 PM ADMISSIONS MANAGER Clinical Support [facility] [address] [address] Nurse, Cc [place] Other acute pulmonary embolism without acute cor pulmonale (HCC) (Primary Dx) 09/18/2024 Travel 09/09/2024 Telephone [facility] [address] [address] Kilo Zamudio, DO 08/16/2024 11:45 AM ADMISSIONS MANAGER Clinical Support [facility] [address] [phone] Nurse, Luma Siegel Other acute pulmonary embolism without acute cor pulmonale (HCC) (Primary Dx) 08/16/2024 Telephone [facility] [address] [phone] Kilo Zamudio, 08/16/2024 Travel from Last 3 Months Family History Medical History Relation Name Comments Prostate Cancer Mother Bladder cancer Sister Relation Name Status Comments Brother Father Mother Sister Social History Tobacco Use Types Packs/Day Years Used Date Smoking Tobacco: Former Cigarettes Q uit: 2017 Smokeless Tobacco: Never Alcohol Use Standard Drinks/Week Comments Never 0 (1 standard drink = 0.6 oz pur e alcohol) PHQ-2 Answer Date Recorded Total Score - Questions 1-9 0 04/11 Comments Unknown Sex and Gender Information Value Date Recorded Sex Assigned at Not on file Legal Sex Female 4:01 PM CDT Gender Identity Not on file Sexual Orientation Not on file Last Filed Vital Signs Vital Sign Reading Time Taken Comments Blood Pressure 106/68 07/23/2024 10:10 AM ADMISSIONS MANAGER Pulse 68 07/23/2024 10:10 AM ADMISSIONS MANAGER Temperature 36.7 C (98 F) 07/23/2024 10:10 AM ADMISSIONS MANAGER Respiratory Rate 18 07/23/2024 10:10 AM ADMISSIONS MANAGER Oxygen Saturation 94% 07/23/2024 10:10 AM ADMISSIONS MANAGER Inhaled Oxygen Concentration - - Weight 83.2 kg (183 lb 6.4 oz) 07/23/2024 10:10 AM ADMISSIONS MANAGER Height 152.4 cm (5') 07/23/2024 10:10 AM ADMISSIONS MANAGER Body Mass Index 35.82 07/23/2024 10:10 AM ADMISSIONS MANAGER Plan of Treatment Upcoming Encounters Date Type Department Care Team (Late st Contact Info) Description 01/21/2025 9:50 AM CDT Lab [facility] [address] [phone] Lab, Luma Siegel [place] 01/21/2025 10:00 AM CDT Office Visit [facility] [address] [phone] Kilo Zamudio, DO [address] [place] [address] Health Maintenance Due Date Last Done Comments DEXA Bone Density 1950 Diabetes: Eye Exam 1950 Diabetes: Foot Exam 1950 Mammogram 1950 Cologuard 2000 Respiratory Syncytial Virus (RSV) Immunization (Adult) (1 - Risk 60-74 years 1-dose series) 2010 Immunochemical Fecal Occult Blood 04/25/2024 04/25/2023 SARS-COV-2 Immunization ( season) 2024 Diabetes: Hemoglobin A1c 04/16/2025 025, 07/17/2024, 04/16/2024, Additional history exists Diabetes: Nephropathy Screening 07/23/2025 07/23/2024, 01/23/2024, 07/25/2023, Additional history exists Colonoscopy 06/26/2033 06/26/2023, 04/26/2023 Colorectal Cancer Screening 06/26/2033 06/26/2023, 04/26/2023 Influenza Immunization Discontinued 08/18/2009, 2007 Pneumococcal Immunization (50+ years) Completed 12/14/2020, 07/28/2016, 08/01/2008 Hepatitis C Virus (HCV) Screening Completed 12/02/2021 DTaP/Tdap/Td Immunization Discontinued 09/29/2022, 08/2006 TdaP Immunization Completed 09/29/2022 Zoster Immunization Completed 09/30/2022, Hepatitis B Immunization Aged Out No longer eligible based on patient's age to complete this topic Meningococcal Immunization (ACWY) Aged Out No longer eligible based on patient's age to complete this topic Rotavirus Immunization Aged Out No lo nger eligible based on patient's age to complete this topic Procedures Procedure Name Priority Date/Time Associated Diagnosis Comments CMP (COMPREHENSIVE METABOLIC PANEL) Routine 07/23/2024 9:51 AM ADMISSIONS MANAGER Other acute pulmonary embolism without acute cor pulmonale (HCC) from Last 3 Months or Most Recently Relevant to Health Maintenance Results * (ABNORMAL) CMP (COMPREHENSIVE METABOLIC PANEL) (07/23/2024 9:51 AM ADMISSIONS MANAGER) Glucose 163(H) 70 - 105 mg/dL [facility] Blood Urea Nitrogen 22 7 - 25 mg/dL [facility] Creatinine 1.1 0.6 - 1.2 mg/dL [facility] Sodium 141 136 - 145 mEq/L [facility] Potassium 4.1 3.5 - 5.1 mEq/L [facility] Chloride 106 98 - 107 mEq/L [facility] Bicarbonate 25 21 - 31 mEq/L [facility] Total Bilirubin 1.1(H) 0.3 - 1.0 mg/dL [facility] Alk. Phosphatase 99 34 - 104 U/L [facility] Aspartate Aminotransferase 15 13 - 39 U/L [facility] Alanine Aminotransferase 12 7 - 52 U/L [facility] Total Protein 6.4 6.4 - 8.9 g/dL [facility] Albumin 3.9 3.5 - 5.7 g/dL [facility] Calcium 9.2 8.6 - 10.3 mg/dL [facility] Anion Gap 14.1 7.0 - 15.0 mEq/L [facility] Globulin 2.5 2.0 - 3.5 g/dL [facility] EGFR 53(L) >60 ml/min/1. 73m2 [facility] Comment: This eGFR is calculated using 2020 CKD-EPI Creatinine equation without race modifier based on the NKF-ASN task force recommendations Blood 07/23/2024 9:51 AM ADMISSIONS MANAGER Narrative [facility] - 07/23/2024 10:45 AM ADMISSIONS MANAGER Release to patient->Immediate IS THE PATIENT REQUIRED TO BE FASTING FOR 8 HOURS?->No us Mervat Mayorga BRAND ADVOCATE, SURGICAL SCHEDULER CHEMISTRY ORDERABLE S Final Result CAN[facility]ER [facility]CHNIC[facility] ANATOMIC PATHOLOGY [facility], [facility] [place] [address], from Last 3 Months or Most Recently Relevant to Health Maintenance Insurance MEDICARE C E[employer] Care Teams Film Spooler Relationship Specialty Start Date End Date Adams Moses DO [address] [place] [id number] PCP - General Family Medicine 01/10/22 Kilo Zamudio DO [address] [place] [phone] Consulting Physician Oncology 01/10/22
--- OUTSIDE RECORDS SUMMARY | 2024-11-01 14:19 | XMS_ITS | Continuity of Care Document ---
Author Organization [facility] Address [address] [place] [address] Phone Care Team Providers Care Technician'S Helper Name Role Phone Mazariegos OD, Sterling Unavailable Unavailable Procedures Procedure Date Office/outpatient Visit, Est Eye Exam & Treatment Refraction Optic Nerve Topography Optic Nerve Topography Visual Field Examination(s) Office/outpatient Visit, Est Office/outpatient Visit, Est Corneal Pachymetry Visual Field Examination(s) Optic Nerve Topography Optic Nerve Topography Eye Exam & Treatment Refraction Fundus Photography W/ Report Fundus Photography W/ Report Visual Field Examination(s) Eye Exam & Treatment Refraction Office/outpatient Visit, Est Advance Directives Directive Yes / No Effective Date File Name No Information Encounters Encounter Description Practice Location Reason(s) For Visit Diagnoses Date Provider Providers Copied on Encounter Office/outpat ient Visit, Est [facility], [address], [place], [place], [id number], [place] tel:[phone] [facility] No Information 7201 0 Mazariegos OD [place]. [address] , [address], [place], [address], [place]. tel:[phone] Referring Provider: Art Ashley MD [place], [address] [place] [address], [address]. tel:[phone] [facility] Eye [facility], [address], [place], [place], [id number], [place] tel:[phone] [facility] No Information Orion-2 2-201 0 Mazariegos OD [place]. [address] , [address], [place], [place], [facility], [place]. tel:[phone] [facility], [address], [place], [place], [id number], [place] tel:[phone] [facility] No Information Dec-0 8-200 9 Mazariegos OD [place]. [address] , [address], [place], [place], [facility], [place]. tel:[phone] Referring Provider: Sterling Mazariegos OD A, [facility] [address], [place], [place], [facility]. tel:[phone] [facility], [address] [place] [address] [address], [place], [place], [address], [place] tel:[phone] [facility] No Information Nov-2 3-200 9 Mazariegos OD [place]. [address] , [address], [place], [address], [place]. tel:[phone] Referring Provider: Sterling Mazariegos OD A, [facility] [address], [place], [place], [facility]. tel:[phone] Office/outpat ient Visit, Est [facility], [address], [place], [place], [address], [place] tel:[phone] [facility] No Information Amor-2 3-200 9 Mazariegos OD [place] [facility] , [address], [place], [address], [place]. tel:[phone] Office/outpat ient Visit, Est [facility] Eye [facility], [address] [place] [address] [address], [place], [place], [id number], tel:[phone] [facility] No Information 9-200 9 Mazariegos OD Sterling. [facility] [address] , [address], [place], [place], [facility], [place]. tel:[phone] Referring Provider: Sterling Mazariegos OD A, [facility] [address], [place], [facility]. tel:[phone] [facility], [address] [place] [address] [address], [place], [place], [address], tel:[phone] [facility] No Information 7-200 8 Mazariegos OD Sterling. [facility] [address], [address], [place], [place], [facility], [place]. tel:[phone] Referring Provider: Sterling Mazariegos OD A, [address] [place], [place] [address], [place], [place], [facility]. tel:[phone] [facility], [address] [place] [address] [address], [place], [place], [address], tel:[phone] [facility] No Information 1-200 8 Mazariegos OD Sterling. [address] [place], [place] [address]ate [address], [address], [place], [facility], [place]. tel:[phone] Referring Provider: Sterling Mazariegos OD A, [facility] [address], [place], [facility]. tel:[phone] [facility], [address] [place] [address] [address], [place], [place], [id number], [place] tel:[phone] [facility] No Information January-0 1-200 8 Mazariegos OD Sterling. [facility] [address], [address], [place], [facility], [place]. tel:[phone] Referring Provider: Sterling Mazariegos OD A, [facility] [address], [place], [facility]. tel:[phone] [facility], [address] [place] [address] [address], [place], [place], [address], [place] tel:[phone] [facility] No Information -200 7 Mazariegos OD Sterling. [address] [facility] , [address], [place], [facility], [place]. tel:[phone] Referring Provider: Sterling Mazariegos OD A, [address] [facility] [address], [place], [facility]. tel:[phone] [facility], [address] [place] [address] [address], [place], [place], [address], [place] tel:[phone] [facility] No Information 200 7 Mazariegos OD [place] [facility] [address], [address], [place], [facility], [place]. tel:[phone] Referring Provider: Sterling Bustamante, [address] [place], [place] [address], [place], [facility]. tel:[phone] [facility], [address], [place], [place], [address], [place] tel:[phone] [facility] No Information -200 7 Mazariegos OD Sterling. [facility] [address], [address], [place], [address], [place]. tel:[phone] Office/outpat ient Visit, Est [facility], [address] [place] [address] [address], [place], [place], [id number], [place] tel:[phone] [facility] No Information 200 [address] Doisy Edward. [facility] [address], [address], [place], [facility], [place]. tel:[phone] Referring Provider: Art Ashley MD [place], [address] [place] [address], [address]. tel:[phone] Family History Family Member Type Diagnosis Age At Onset No Information Payers Payer name Insurance type Covered democrat ID Chrisrico ramónmelvin(s) No Information Social History Type Description Quantity Date Captured Comments Sex Female Smoking Status No Information Chief Complaint And Reason For Visit No Information Reason For Referral Reason For Referral No Information History Of Present Illness Encounter Date Complaint History Of Prese nt Illness No Information Functional Status Date Functional Assessmen t No Information Instructions Date Instruction Additional Infor mation No Information Assessments Type Assessment Date No Information Patient Care Teams Name Effective Dates (start - stop) Status Members No Information
--- OUTSIDE RECORDS SUMMARY | 2024-11-01 14:19 | XMS_ITS | Encounter Summary ---
Author Organization [facility] Address [address] [place] [address] Phone Care Team Providers Care Copier Technician Name Role Phone Adams Moses Richi DO Primary Care Provider + Kilo Zamudio DO Unavailable [phone] Encounter Details Date Type Department Care Team (Late st Contact Info) Description 05/27/2024 Telephone [facility] [address] [address] Kilo Zamudio, DO [address] [place] [address] Social History Tobacco Use Types Packs/Day Years [...] 9:50 AM CDT Lab [facility] [address] [address] Lab, [facility] 01/21/2025 10:00 AM CDT Office Visit [facility] [place] [address] [place] [address] Kilo Zamudio DO [address] [place] [address] documented as of this encounter Visit Diagnoses Not on filedocumented in this encounter Care Teams Copier Technician Relationship Specialty Start Date End Date Adams Moses DO [address] [place] [address] PCP - General Family Medicine 01/10/22 Kilo Zamudio DO [address] [place] [phone] Consulting Physician Oncology 01/10/22 documented as of this encounter
--- OUTSIDE RECORDS SUMMARY | 2024-11-01 14:19 | XMS_ITS | Clinical Summary ---
Author Organization [facility] Address [address] [place] [address] Phone Care Team Providers Care Park Police Name Role Phone Art Ashley MD Primary Care Provider [phone] Allergies Active Allergy Reactions Criticality Noted Date Comments Amoxicillin Itching Low 12/08/2010 Codeine Itching Low 12/08/2010 Iodine And Iodide Containing Products Palpitations Low 12/08/2010 Methylsulfonylmethane-Herbcmb1 Hives High 12/08 Moxifloxacin Swelling Low 12/08/2010 Tussin Guaifenesin Hives High 12/08/2010 Medications NIFEdipine SR 24 hour (NIFEDICAL XL) 30 mg Oral tablet Take 30 mg by mouth daily. Active bimatoprost (LUMIGAN) 0.03 % OP solution 1 Drop daily at bedtime. Active OMEGA-3 ACID ETHYL ESTERS (LOVAZA ORAL) Take by mouth. Active simvastatin (ZOCOR) 20 mg Oral tablet Take 20 mg by mouth Daily LATE. Active methylPREDNISolo ne (MEDROL) 4 mg Oral tablet Take 4 mg by mouth. Pt took 32 mg last nite @ 9 pm and again this am @ 0700 Active ranitidine (ZANTAC) 150 mg Oral tablet Take 150 mg by mouth 2 times daily. Pt took last night @ 9 pm and again @7 Am today Active diphenhydrAMINE hcl (BENADRYL) 50 mg Oral capsule Take 50 mg by mouth every 6 hours as needed. Pt took 50 mg last nite 9 pm and again @@ 0700 today Active Social History Tobacco Use Types Packs/Day Years Used Date Smoking Tobacco: Every Day Cigarettes Smokeless Tobacco: Never Alcohol Use Standard Drinks/Week Comments No 0 (1 standard drink = 0.6 oz pur e alcohol) Comments Unknown Sex and Gender Information Value Date Recorded Sex Assigned at Not on file Legal Sex Female 4:20 AM MACHINIST HELPER Gender Identity Not on file Sexual Orientation Not on file Last Filed Vital Signs Vital Sign Reading Time Taken Comments Blood Pressure 119/72 12/11/2010 8:00 AM CDT Pulse 45 12/10/2010 5:21 PM CDT Temperature 35.9 C (96.7 F) 12/11/2010 8:00 AM CDT Respiratory Rate 20 12/11/2010 9:00 AM CDT Oxygen Saturation 95% 12/11/2010 9:00 AM CDT Inhaled Oxygen Concentration - - Weight 70.3 kg (155 lb) 12/08/2010 10:52 AM CDT Height 154.9 cm (5' 1 ) 12/08/2010 10:52 AM CDT Body Mass Index 29.29 12/08/2010 10:52 AM CDT Plan of Treatment Health Maintenance Due Date Last Done Comments DTAP/TDAP/TD VACCINES (1 - Tdap) 1969 PNEUMOCOCCAL VACCINE 65+ YEARS (1 of 2 - PCV) 05/31/19 69 BREAST CANCER SCREENING 1990 COLORECTAL SCREENING 1995 Colorectal Cancer Screening 1995 FIT-DNA Q 3 years 1995 FIT/FOBT Q 1 year 1995 Flex Sig/CT Colonography Q 5 years 1995 ZOSTER VACCINE (1 of 2) 2000 OSTEOPOROSIS SCREENING 2015 INFLUENZA VACCINE (#1) 2024 RSV VACCINE (60+ or ) (1 - 1-dose 75+ series) 2025 Insurance [employer] BLUE ACCESS/TRUE BLUE PPO Advance Directives For more information, please contact: [phone] * Full Code (Latest Code Status on File) Date Activated Date Inactivated Comments 12/10/2010 2:53 PM 12/11/2010 12:08 PM Care Teams Park Police Relationship Specialty Start Date End Date Art Ashley MD [address] [place] [phone] PCP - General Family Practice 12/10/10
--- OUTSIDE RECORDS SUMMARY | 2024-11-01 14:19 | XMS_ITS | Referral Summary ---
Author Organization [facility] [address] [facility] [address] Address [address] [place] [address] Care Team Providers Care Special Weapons And Tactics Officer Name Role Phone Yemi Carrillo MD Unavailable [phone] Gopi Almaguer MD Unavailable Adams Moses DO Primary Care Provide r Eusebio Love MD Unavailable [phone] Encounters Date Type Department Care Team Description 10/02/2024 10:45 AM STERILE PROCESS COORDINATOR Office Visit [facility] Cardiology [address] [place] [address] Lamont Jang MD Coronary artery disease involving [place] coronary artery of [place] heart without angina pectoris (Primary Dx); S/P CABG x 3; Hypertension associated with type 2 diabetes mellitus (HCC); History of pulmonary embolism; Chronic anticoagulation from Last 3 Months Allergies Active Allergy Reactions Criticality Noted Date [...] both eyes 2 (two) times a day 8 Active montelukast (SINGULAIR) 10 mg tablet [...] enteric coated tabletIndicatio ns:Coronary artery disease involving [place] coronary artery of [place] heart without angina pectoris Take 1 tablet [...] arthritis(714.0) 03/01/2021 Coronary artery disease invo lving [place] coronary artery of [place] heart without angina pectoris 03/01/2021 Peripheral vascular [...] Date Diagnosed Date Resolved Date CAD in [place] artery 12/22/2022 023 Coronary artery disease of n ative heart with stable angina pectoris 11/22/2022 08/25/2023 Overview (11/22/2022): Added automatically from request for surgery [id number] Coronary artery calcification seen on CT scan 01/08/2008/25/2023 Hypertension associated with diabetes 01/07/2022 02/14/2023 Atypical chest pain 12/31/2021 08/25/20 23 Hyperlipidemia 11/03/2015 08/25/2023 Social History Tobacco Use Types Packs/Day Years [...] than three times a week 12/23/2022 Attends Worship Services Not on file 12/23 Active Member [...] place to sleep or slept in a intermediate (including now)? No 12/23/2022 Personal Safety Answer Date Recorded Have you ever been in or are you currently in a harmful physical or emotional relationship or is someone making you feel afraid or unsafe? Denies 03/13/2023 Comments Unknown Sex and Gender Information Value Date Recorded Sex Assigned at Not on file Legal Sex Female 12:25 AM STERILE PROCESS COORDINATOR Gender Identity Female 09/27/2023 3:25 PM STERILE PROCESS COORDINATOR Sexual Orientation Not on file Last Filed Vital Signs Vital Sign Reading Time Taken Comments Blood Pressure 144/86 10/02/2024 10:56 AM STERILE PROCESS COORDINATOR Pulse 57 10/02/2024 10:56 AM STERILE PROCESS COORDINATOR Temperature 36.7 C (98.1 F) 03/13/2023 6:51 PM CDT Respiratory Rate 17 03/13/2023 6:51 PM CDT Oxygen Saturation 98% 10/02/2024 10:56 AM STERILE PROCESS COORDINATOR Inhaled Oxygen Concentration - - Weight 82.1 kg (181 lb) 10/02/2024 10:56 AM STERILE PROCESS COORDINATOR Height 152.4 cm (5') 10/02/2024 10:56 AM STERILE PROCESS COORDINATOR Body Mass Index 35.35 10/02/2024 10:56 AM STERILE PROCESS COORDINATOR Plan of Treatment Not on file Procedures Procedure Name Priority Date/Time Associated Diagnosis Comments ELECTROCARDIOGRAM REPORT Routine 10/02/2024 1:30 PM STERILE PROCESS COORDINATOR Coronary artery disease involving [place] coronary artery of [place] heart without angina pectoris POCT LIPID PANEL Routine 02/26/2024 9:39 AM CDT Lipid screening CT VIRTUAL COLONOSCOPY DIAGNOSTIC WO CONTRAST Schedule Routine, Read Routine (OP Routine) 09/13/2023 2:02 PM STERILE PROCESS COORDINATOR Screening for malignant neoplasm of colon EGFR STAT 01/05/2023 1:00 PM CDT HEMOGLOBIN A1C Routine 12/08/2022 9:30 AM CDT Preop testing Controlled diabetes mellitus type 2 with complications, unspecified whether senior living insulin use (HCC) from Last 3 Months or Most Recently Relevant to Health Maintenance Results * Electrocardiogram Report (10/02/2024 1:30 PM STERILE PROCESS COORDINATOR) Lamont Jang MD ECG ORDERABLES Edited Result [...] Colonoscopy Diagnostic WO Contrast (09/13/2023 2:02 PM STERILE PROCESS COORDINATOR) Anatomical Region Laterality Modality Body N/A Computed Tomogra phy 09/13/2023 2:59 PM STERILE PROCESS COORDINATOR Impressions 09/14/2023 8:06 AM STERILE PROCESS COORDINATOR Colon: 7 mm sessile polyp involving the [...] Linda Thayer M.D. Narrative 09/14/2023 8:06 AM STERILE PROCESS COORDINATOR EXAMINATION: CT colonography without intravenous contrast HISTORY: [...] ORDERABLES Final R esult JAYY ANDERSON [facility] Department [place] [address] * (ABNORMAL) Hemoglobin A1c (12/08/2022 9:30 AM CDT) Hgb A1C 6.8(H) 4.0 - 5.6 % JAYY RIVERA Estimated Average Glucose 148 mg/dL JAYY RIVERA Comment: The ADA recommends reporting an estimated Average Glucose (eAG) with all Hemoglobin A1c results using the equation derived from a study of 507 normal and diabetic adults. Minority populations were underrepresented and children were not included. (Diabetes Care 31:5903-1338, 2008). The eAG is not equivalent to a fasting glucose. Blood 12/08/2022 9:30 AM CDT 12/08/2022 9:41 AM CDT us Yemi Carrillo MD LAB BLOOD ORDERABLES Final R esult JAYY RIVERA [id number] Department [place] [address] from Last 3 Months or Most Recently Relevant to Health Maintenance Insurance [employer] Member Subscriber Plan / Payer (Ef fective 2022-Present) Name:Patricia Grider Relation to Subscriber:Self Name:Patricia Grider Payer ID:[id number] (NAIC) Type:MEDICARE RISK OTHER Address: [facility] Jacquie [place] [facility] Advance Directives For more information, please contact: [phone] Documents on File Type Date Recorded Patient Classification Counselor Expl anation ADVANCE DIRECTIVE 06/30/2023 7:04 PM * Full Code (Latest Code Status on File) Date Activated Date Inactivated Comments 12/22/2022 1:45 PM 12/29/2022 8:26 PM Care Teams Special Weapons And Tactics Officer Relationship Specialty Start Date End Date Adams Moses DO [address] [place] [id number] PCP - General Family Medicine 07/28/23 [place] [id number] [address] [facility] [place] [address] Surgeon Cardiothoracic Surgery 12/29/22 [place] [id number] [address] [facility] [address] Consulting Physician Cardiology 12/29/22 Eusebio Love MD [phone] [place] [address] Surgeon Colon and Rectal Surgery 08/10/23
--- OUTSIDE RECORDS SUMMARY | 2024-11-01 14:19 | XMS_ITS | Encounter Summary ---
Author Organization [facility] Address [address] [place] [address] Care Team Providers Care Division Chief Name Role Phone Art Ashley MD Primary Care Provider [phone] Encounter Details Date Type Department Care Team (Late st Contact Info) Description 11/14/2007 Outpatient Historical [facility] Noel Serrano Wilman Clara Hamilton MD [address] [facility] [place] [address] Social History Tobacco Use Types Packs/Day Years Used Date Smoking Tobacco: Never Assessed Comments Unknown Sex and Gender Information Value Date Recorded Sex Assigned at Not on file Legal Sex Female 4:20 AM [employer]ING [employer] Gender Identity Not on file Sexual Orientation Not on file documented as of this encounter Plan of Treatment Not on file documented as of this encounter Procedures Procedure Name Priority Date/Time Associated Diagnosis Comments CBC WITH DIFFERENTIAL Routine 11/28/2007 6:00 AM CDT PHOSPHORUS Routine 11/28/2007 6:00 AM CDT MAGNESIUM LEVEL Routine 11/28/2007 6:00 AM CDT BASIC METABOLIC PANEL Routine 11/28/2007 6:00 AM CDT MRSA ACTIVE SURVEILLANCE CULTURE Timed Study 11/27/2007 5:55 PM CDT XR MYELOGRAM CERVICAL Timed Study 11/27/2007 12:[address] CERVICAL SPINE W CONTRAST Timed Study 11/27/2007 12:27 PM CDT HEMOGLOBIN AND HEMATOCRIT Routine 11/23/2007 4:20 PM CDT documented in this encounter Results * PHOSPHORUS (11/28/2007 6:00 AM CDT) PHOSPHORUS 3.0 2.5 - 4.5 mg/dL [facility] Blood specimen (specimen) 11/28/2007 6:00 AM CDT 11/28/2007 6:00 AM CDT us Norman Herrera MD CHEMISTRY ORDERABLES Final Result Performing Organization Address [facility] Co de Phone Number [facility] [address] [facility] [address] * MAGNESIUM LEVEL (11/28/2007 6:00 AM CDT) MAGNESIUM 2.1 1.5 - 2.5 mg/dL [facility] Blood specimen (specimen) 11/28/2007 6:00 AM CDT 11/28/2007 6:00 AM CDT us Norman Herrera MD CHEMISTRY ORDERABLES Final Result Performing Organization Address [facility] Co de Phone Number [facility] [address] [facility] [place] [address] * (ABNORMAL) BASIC METABOLIC PANEL (11/28/2007 6:00 AM CDT) POTASSIUM 4.1 3.5 - 4.9 mmol/L [facility] Comment:Slight hemolysis pre sent. Result may be falsely elevated. BUN 24(H) 6 - 20 mg/dL [facility] CHLORIDE 106 96 - 108 mmol/L [facility] GLUCOSE 153(H) 65 - 99 mg/dL [facility] SODIUM 138 135 - 145 mmol/L [facility] CALCIUM 8.7 8.4 - 10.2 mg/dL [facility] CO2 20(L) 22 - 30 mmol/L [facility] CREATININE 1.06(H) 0.51 - 0.95 mg/dL [facility] GFR, >60 >=60 mL/min/1. 7 sq meter [facility] GFR 53(L) >=60 mL/min/1. 7 sq meter [facility] Comment: Estimated GFR rate interpretative information for both Americans and non- Americans is available on the [facility] Intranet at: [email or web address] Select: Lab Policies and Procedures Select: Reference Ranges - GFR Blood specimen (specimen) 11/28/2007 6:00 AM CDT 11/28/2007 6:00 AM CDT us Norman Herrera MD CHEMISTRY ORDERABLES Edited [facility] [address] [facility] [place] [address] * (ABNORMAL) CBC WITH DIFFERENTIAL (11/28/2007 6:00 AM CDT) MCV 91.1 82.0 - 99.0 fL [facility] PLATELETS 152 140 - 350 K/uL [facility] HEMOGLOBIN 14.5 11.8 - 14.8 g/dL [facility] RDW 14.1 11.5 - 14.5 % [facility] WBC 13.9(H) 4.0 - 9.8 K/uL [facility] MCH 30.1 27.2 - 32.6 pg [facility] MPV 11.8 9.3 - 12.4 fL [facility] HEMATOCRIT 43.9 35.5 - 44.0 % [facility] RDW-STDEV 46.6 37.1 - 48.7 fL [facility] RBC 4.82 3.90 - 4.90 M/uL [facility] MCHC 33.0 31.5 - 35.5 % [facility] NEUTROPHILS 84(H) 45 - 70 % [facility] NEUTROPHIL ABSOLUTE 11.59(H) 1.90 - 7.00 K/uL [facility] EOSINOPHILS 0 0 - 7 % [facility] EOSINOPHIL ABSOLUTE 0.01 0.00 - 0.70 K/uL [facility] LYMPHOCYTES 11(L) 16 - 45 % [facility] LYMPHOCYTE ABSOLUTE 1.46 0.70 - 4.50 K/uL [facility] BASOPHILS 0 0 - 2 % [facility] BASOPHILS ABSOLUTE 0.02 0.00 - 0.20 K/uL [facility] MONOCYTES 6 3 - 13 % [facility] MONOCYTE ABSOLUTE 0.77 0.10 - 1.30 K/uL [facility] Blood specimen (specimen) 11/28/2007 6:00 AM CDT 11/28/2007 6:00 AM CDT Norman Herrera MD HEMATOLOGY ORDERABLES Edite d INTERFACE SYSTEM Refer to clinic/hospital department [facility] [address] [facility] [address] [place] [address] * MRSA ACTIVE SURVEILLANCE (11/27/2007 5:55 PM CDT) PRELIMINARY REPORT Pending INTERFACE SYSTEM FINAL REPORT No methicillin resistant Staphylococcus aureus isolated. INTERFACE SYSTEM Nares 11/27/2007 5:55 PM CDT 11/27/2007 6:16 PM CDT us Norman Herrera MD MICROBIOLOGY - GENERAL MIREYANiall ARTEAGAKLARISSA Final Result INTERFACE SYSTEM Refer to clinic/hospital department * XR MYELOGRAM CERVICAL (11/27/2007 12:27 PM CDT) Anatomical Region Laterality Modality Spine Other 11/27/2007 12:2 7 PM CDT Narrative 11/27/2007 1:50 PM CDT Ordered by NOEL SERRANO [facility] [address] [place], [place] [address] Admit Date: 11/27/2007 ISAURO GRIDER Sex: F Admit Prov: ZACH NOEL STOVALL Date: 1950 Primary Care Prov: CMRN: [id number] Room: [place] [address] SSN: [id number] IMAGING SERVICES Ordering Prov: N/A Accession Number: [id number] Interpretation Lumbar puncture for cervical myelogram Cervical myelogram Post myelogram CT cervical spine Nov 27, 2007 12:44:59 PM History: Previous anterior cervical fusion now with one month of neck and the left arm pain. According to family the prior MRI was inconclusive . Comparison: None available. Following a detailed discussion of risks and benefits of the procedure, written informed consent was obtained. The patient was premedicated with Medrol 32 mg p.o. x3 doses, Zantac 150 mg p.o. x2 doses, and Benadryl x2 doses. Anesthesia was present during the procedure as the patient had a history of previous anaphylactic reaction to contrast. The patient was placed in the prone position on the fluoroscopy table. The lower back was prepped and draped in sterile fashion. Local anesthesia was provided with buffered 1% lidocaine. Using fluoroscopic guidance a 27-gauge 3.5 inch spinal needle was advanced into the thecal sac in the left parasagittal location at the level of L5-S1. Clear CSF was obtained. Approximately 6 cc of Omnipaque-300 was slowly injected into the thecal sac under fluoroscopy. The needle was removed and a sterile bandage was applied. The patient was then placed in a Trendelenburg position and contrast flowed into the cervical spine via gravity. Several spot radiographs and overhead radiographs were obtained. The patient tolerated the procedure well without immediate complications. The patient was sent for postmyelogram CT followed by monitoring in the anesthesia recovery room pending overnight admission to the ICU. Myelogram findings: There is anterior plate fixation at C3, C4, C5, and C6. The uppermost screw appears to be fractured. The right C4 screw also appears to be fractured. There are anterior extradural defects at multiple levels but no obstruction to the flow of myelographic contrast. These findings will be elaborated upon on the postmyelogram CT below. CT findings: There is anterior plate fixation at C3, C4, C5, and C6. There is a single screw in the C3 vertebral body on the right. The screw is fractured. The plate is lifted off the left side of the vertebral body and is slightly rotated facing towards the right. There are bilateral C4 screws. The right screw is fractured. The device remains angled slightly, facing the right. Bilateral C5 and C6 screws appear to be intact. There is slight straightening of the normal lordosis without subluxation. There is an interbody fusion device at C4-C5 which has not fused. There is persistent lucency within and around the device. The disc spaces at the remaining levels are still visible. There is no lucency about the hardware to suggest loosening or infection. The mastoid air cells are well-aerated. The cervical cord is normal in size. C2-C3: There is no disc herniation and no central canal or foraminal stenosis. C3-C4: Posterior osteophytic ridging effaces the ventral aspect of the thecal sac narrowing the midsagittal AP diameter to 9 mm consistent with mild stenosis. Uncovertebral arthropathy is present bilaterally, greater on the right. There is no foraminal narrowing. C4-C5: Posterior osteophytic ridging effaces the ventral aspect of the thecal sac narrowing the midsagittal AP diameter to 9 mm consistent with mild stenosis. There is bilateral uncovertebral arthropathy, greater on the left. This causes moderate to marked left-sided foraminal narrowing. C5-C6: Posterior osteophytic ridging effaces the ventral aspect of the thecal sac narrowing the midsagittal AP diameter of the canal to 9 mm consistent with mild stenosis. There is bilateral uncovertebral arthropathy causing moderate to marked left-sided foraminal narrowing. C6-C7: Posterior osteophytic ridging narrows the midsagittal AP diameter of the canal to 9 mm consistent with mild stenosis. There is mild bilateral uncovertebral arthropathy and moderate right-sided facet arthropathy. There is no foraminal stenosis. The left foramen appears slightly widened but the nerve sheath appears to exit normally. C7-T1: The disc has normal configuration. The uncovertebral and facet joints are normal. There is no narrowing of the central canal or foramen. IMPRESSION: Postoperative changes in cervical spine with anterior plate fixation from C3-C6. Of note there appears to be 2 fractured screws with slight rotation of the hardware and incomplete osseous fusion of the underlying vertebrae. There is left sided foraminal narrowing and mild central canal stenosis at several levels. . Dictated by: CLARA HAMILTON 11/27/2007 13:10 Electronically signed by: CLARA HAMILTON 11/27/2007 13:50 Procedure Note Provider, Historical - 11/27/2007 Ordered by NOEL SERRANO [facility] [address] [place], [place] [address] Admit Date: 11/27/2007 ISAURO GRIDER Sex: F Admit Prov: ZACH NOEL STOVALL Date: 1950 Primary Care Prov: CMRN: [id number] Room: [place] [address] SSN: [id number] IMAGING SERVICES Ordering Prov: N/A Interpretation Lumbar puncture for cervical myelogram Cervical myelogram Post myelogram CT cervical spine Nov 27, 2007 12:44:59 PM History: Previous anterior cervical fusion now with one month of neckand the left arm pain. According to family the prior MRI was inconclusive . Comparison: None available. Following a detailed discussion of risks and benefits of theprocedure, written informed consent was obtained. The patient was premedicatedwith Medrol 32 mg p.o. x3 doses, Zantac 150 mg p.o. x2 doses, and Benadrylx2 doses. Anesthesia was present during the procedure as the patient hada history of previous anaphylactic reaction to contrast. The patientwas placed in the prone position on the fluoroscopy table. The lower backwas prepped and draped in sterile fashion. Local anesthesia was providedwith buffered 1% lidocaine. Using fluoroscopic guidance a 27-gauge 3.5inch spinal needle was advanced into the thecal sac in the leftparasagittal location at the level of L5-S1. Clear CSF was obtained. Approximately6 cc of Omnipaque-300 was slowly injected into the thecal sac underfluoroscopy. The needle was removed and a sterile bandage was applied. The patientwas then placed in a Trendelenburg position and contrast flowed intothe cervical spine via gravity. Several spot radiographs and overhead radiographs were obtained. The patient tolerated the procedure wellwithout immediate complications. The patient was sent for postmyelogram CTfollowed by monitoring in the anesthesia recovery room pending overnightadmission to the ICU. Myelogram findings: There is anterior plate fixation at C3, C4, C5,and C6. The uppermost screw appears to be fractured. The right C4 screwalso appears to be fractured. There are anterior extradural defects atmultiple levels but no obstruction to the flow of myelographic contrast.These findings will be elaborated upon on the postmyelogram CT below. CT findings: There is anterior plate fixation at C3, C4, C5, and C6.There is a single screw in the C3 vertebral body on the right. The screwis fractured. The plate is lifted off the left side of the vertebralbody and is slightly rotated facing towards the right. There are bilateralC4 screws. The right screw is fractured. The device remains angledslightly, facing the right. Bilateral C5 and C6 screws appear to be intact.There is slight straightening of the normal lordosis without subluxation.There is an interbody fusion device at C4-C5 which has not fused. There is persistent lucency within and around the device. The disc spaces atthe remaining levels are still visible. There is no lucency about thehardware to suggest loosening or infection. The mastoid air cells arewell-aerated. The cervical cord is normal in size. C2-C3: There is no disc herniation and no central canal orforaminal stenosis. C3-C4: Posterior osteophytic ridging effaces the ventral aspect ofthe thecal sac narrowing the midsagittal AP diameter to 9 mm consistentwith mild stenosis. Uncovertebral arthropathy is present bilaterally,greater on the right. There is no foraminal narrowing. C4-C5: Posterior osteophytic ridging effaces the ventral aspect ofthe thecal sac narrowing the midsagittal AP diameter to 9 mm consistentwith mild stenosis. There is bilateral uncovertebral arthropathy, greateron the left. This causes moderate to marked left-sided foraminalnarrowing. C5-C6: Posterior osteophytic ridging effaces the ventral aspect ofthe thecal sac narrowing the midsagittal AP diameter of the canal to 9mm consistent with mild stenosis. There is bilateral uncovertebralarthropathy causing moderate to marked left-sided foraminal narrowing. C6-C7: Posterior osteophytic ridging narrows the midsagittal APdiameter of the canal to 9 mm consistent with mild stenosis. There is mildbilateral uncovertebral arthropathy and moderate right-sided facet arthropathy.There is no foraminal stenosis. The left foramen appears slightly widenedbut the nerve sheath appears to exit normally. C7-T1: The disc has normal configuration. The uncovertebral andfacet joints are normal. There is no narrowing of the central canal orforamen. IMPRESSION: Postoperative changes in cervical spine with anterior plate fixationfrom C3-C6. Of note there appears to be 2 fractured screws with slightrotation of the hardware and incomplete osseous fusion of the underlyingvertebrae. There is left sided foraminal narrowing and mild central canalstenosis at several levels. . Dictated by: CLARA HAMILTON 11/27/2007 13:10 Electronically signed by: CLARA HAMILTON 11/27/2007 13:50 Historical Provider DIAGNOSTIC IMAGING ORDERABLE S Final Result * CT CERVICAL SPINE W CONTRAST (11/27/2007 12:27 PM CDT) Anatomical Region Laterality Modality Spine Other 11/27/2007 12:2 7 PM CDT Narrative 11/27/2007 1:50 PM CDT [facility] [address] [place], [place] [address] Admit Date: 11/27/2007 ISAURO GRIDER Sex: F Admit Prov: NOEL SERRANO WILMAN Date: 1950 Primary Care Prov: CMRN: [id number] Room: [place] [address] SSN: [id number] IMAGING SERVICES Ordering Prov: N/A Accession Number: [id number] Interpretation Lumbar puncture for cervical myelogram Cervical myelogram Post myelogram CT cervical spine Nov 27, 2007 12:44:59 PM History: Previous anterior cervical fusion now with one month of neck and the left arm pain. According to family the prior MRI was inconclusive . Comparison: None available. Following a detailed discussion of risks and benefits of the procedure, written informed consent was obtained. The patient was premedicated with Medrol 32 mg p.o. x3 doses, Zantac 150 mg p.o. x2 doses, and Benadryl x2 doses. Anesthesia was present during the procedure as the patient had a history of previous anaphylactic reaction to contrast. The patient was placed in the prone position on the fluoroscopy table. The lower back was prepped and draped in sterile fashion. Local anesthesia was provided with buffered 1% lidocaine. Using fluoroscopic guidance a 27-gauge 3.5 inch spinal needle was advanced into the thecal sac in the left parasagittal location at the level of L5-S1. Clear CSF was obtained. Approximately 6 cc of Omnipaque-300 was slowly injected into the thecal sac under fluoroscopy. The needle was removed and a sterile bandage was applied. The patient was then placed in a Trendelenburg position and contrast flowed into the cervical spine via gravity. Several spot radiographs and overhead radiographs were obtained. The patient tolerated the procedure well without immediate complications. The patient was sent for postmyelogram CT followed by monitoring in the anesthesia recovery room pending overnight admission to the ICU. Myelogram findings: There is anterior plate fixation at C3, C4, C5, and C6. The uppermost screw appears to be fractured. The right C4 screw also appears to be fractured. There are anterior extradural defects at multiple levels but no obstruction to the flow of myelographic contrast. These findings will be elaborated upon on the postmyelogram CT below. CT findings: There is anterior plate fixation at C3, C4, C5, and C6. There is a single screw in the C3 vertebral body on the right. The screw is fractured. The plate is lifted off the left side of the vertebral body and is slightly rotated facing towards the right. There are bilateral C4 screws. The right screw is fractured. The device remains angled slightly, facing the right. Bilateral C5 and C6 screws appear to be intact. There is slight straightening of the normal lordosis without subluxation. There is an interbody fusion device at C4-C5 which has not fused. There is persistent lucency within and around the device. The disc spaces at the remaining levels are still visible. There is no lucency about the hardware to suggest loosening or infection. The mastoid air cells are well-aerated. The cervical cord is normal in size. C2-C3: There is no disc herniation and no central canal or foraminal stenosis. C3-C4: Posterior osteophytic ridging effaces the ventral aspect of the thecal sac narrowing the midsagittal AP diameter to 9 mm consistent with mild stenosis. Uncovertebral arthropathy is present bilaterally, greater on the right. There is no foraminal narrowing. C4-C5: Posterior osteophytic ridging effaces the ventral aspect of the thecal sac narrowing the midsagittal AP diameter to 9 mm consistent with mild stenosis. There is bilateral uncovertebral arthropathy, greater on the left. This causes moderate to marked left-sided foraminal narrowing. C5-C6: Posterior osteophytic ridging effaces the ventral aspect of the thecal sac narrowing the midsagittal AP diameter of the canal to 9 mm consistent with mild stenosis. There is bilateral uncovertebral arthropathy causing moderate to marked left-sided foraminal narrowing. C6-C7: Posterior osteophytic ridging narrows the midsagittal AP diameter of the canal to 9 mm consistent with mild stenosis. There is mild bilateral uncovertebral arthropathy and moderate right-sided facet arthropathy. There is no foraminal stenosis. The left foramen appears slightly widened but the nerve sheath appears to exit normally. C7-T1: The disc has normal configuration. The uncovertebral and facet joints are normal. There is no narrowing of the central canal or foramen. IMPRESSION: Postoperative changes in cervical spine with anterior plate fixation from C3-C6. Of note there appears to be 2 fractured screws with slight rotation of the hardware and incomplete osseous fusion of the underlying vertebrae. There is left sided foraminal narrowing and mild central canal stenosis at several levels. . Dictated by: CLARA HAMILTON 11/27/2007 13:10 Electronically signed by: CLARA HAMILTON 11/27/2007 13:50 Procedure Note Provider, Historical - 11/27/2007 [facility] [address] [facility] [place], [place] [address] Admit Date: 11/27/2007 ISAURO GRIDER Sex: F Admit Prov: NOEL SERRANO Date: 1950 Primary Care Prov: CMRN: [id number] Room: [place] [address] SSN: [id number] IMAGING SERVICES Ordering Prov: N/A Interpretation Lumbar puncture for cervical myelogram Cervical myelogram Post myelogram CT cervical spine Nov 27, 2007 12:44:59 PM History: Previous anterior cervical fusion now with one month of neckand the left arm pain. According to family the prior MRI was inconclusive . Comparison: None available. Following a detailed discussion of risks and benefits of theprocedure, written informed consent was obtained. The patient was premedicatedwith Medrol 32 mg p.o. x3 doses, Zantac 150 mg p.o. x2 doses, and Benadrylx2 doses. Anesthesia was present during the procedure as the patient hada history of previous anaphylactic reaction to contrast. The patientwas placed in the prone position on the fluoroscopy table. The lower backwas prepped and draped in sterile fashion. Local anesthesia was providedwith buffered 1% lidocaine. Using fluoroscopic guidance a 27-gauge 3.5inch spinal needle was advanced into the thecal sac in the leftparasagittal location at the level of L5-S1. Clear CSF was obtained. Approximately6 cc of Omnipaque-300 was slowly injected into the thecal sac underfluoroscopy. The needle was removed and a sterile bandage was applied. The patientwas then placed in a Trendelenburg position and contrast flowed intothe cervical spine via gravity. Several spot radiographs and overhead radiographs were obtained. The patient tolerated the procedure wellwithout immediate complications. The patient was sent for postmyelogram CTfollowed by monitoring in the anesthesia recovery room pending overnightadmission to the ICU. Myelogram findings: There is anterior plate fixation at C3, C4, C5,and C6. The uppermost screw appears to be fractured. The right C4 screwalso appears to be fractured. There are anterior extradural defects atmultiple levels but no obstruction to the flow of myelographic contrast.These findings will be elaborated upon on the postmyelogram CT below. CT findings: There is anterior plate fixation at C3, C4, C5, and C6.There is a single screw in the C3 vertebral body on the right. The screwis fractured. The plate is lifted off the left side of the vertebralbody and is slightly rotated facing towards the right. There are bilateralC4 screws. The right screw is fractured. The device remains angledslightly, facing the right. Bilateral C5 and C6 screws appear to be intact.There is slight straightening of the normal lordosis without subluxation.There is an interbody fusion device at C4-C5 which has not fused. There is persistent lucency within and around the device. The disc spaces atthe remaining levels are still visible. There is no lucency about thehardware to suggest loosening or infection. The mastoid air cells arewell-aerated. The cervical cord is normal in size. C2-C3: There is no disc herniation and no central canal orforaminal stenosis. C3-C4: Posterior osteophytic ridging effaces the ventral aspect ofthe thecal sac narrowing the midsagittal AP diameter to 9 mm consistentwith mild stenosis. Uncovertebral arthropathy is present bilaterally,greater on the right. There is no foraminal narrowing. C4-C5: Posterior osteophytic ridging effaces the ventral aspect ofthe thecal sac narrowing the midsagittal AP diameter to 9 mm consistentwith mild stenosis. There is bilateral uncovertebral arthropathy, greateron the left. This causes moderate to marked left-sided foraminalnarrowing. C5-C6: Posterior osteophytic ridging effaces the ventral aspect ofthe thecal sac narrowing the midsagittal AP diameter of the canal to 9mm consistent with mild stenosis. There is bilateral uncovertebralarthropathy causing moderate to marked left-sided foraminal narrowing. C6-C7: Posterior osteophytic ridging narrows the midsagittal APdiameter of the canal to 9 mm consistent with mild stenosis. There is mildbilateral uncovertebral arthropathy and moderate right-sided facet arthropathy.There is no foraminal stenosis. The left foramen appears slightly widenedbut the nerve sheath appears to exit normally. C7-T1: The disc has normal configuration. The uncovertebral andfacet joints are normal. There is no narrowing of the central canal orforamen. IMPRESSION: Postoperative changes in cervical spine with anterior plate fixationfrom C3-C6. Of note there appears to be 2 fractured screws with slightrotation of the hardware and incomplete osseous fusion of the underlyingvertebrae. There is left sided foraminal narrowing and mild central canalstenosis at several levels. . Dictated by: CLARA HAMILTON 11/27/2007 13:10 Electronically signed by: CLARA HAMILTON 11/27/2007 13:[address] ORDERABLES Final Result * (ABNORMAL) HEMOGLOBIN AND HEMATOCRIT (11/23/2007 4:20 PM CDT) HEMOGLOBIN 14.7 11.8 - 14.8 g/dL [facility] HEMATOCRIT 44.8(H) 35.5 - 44.0 % [facility] Blood specimen (specimen) 11/23/2007 4:20 PM CDT 11/23/2007 4:41 PM CDT Noel Serrano HEMATOLOGY ORDERABLES Final R esult [facility] [address] [place] [place] [address] documented in this encounter Visit Diagnoses Not on filedocumented in this encounter Care Teams Division Chief Relationship Specialty Start Date End Date Art Ashley MD [address] [place] [phone] PCP - General Family Practice 12/10/10 documented as of this encounter
--- OUTSIDE RECORDS SUMMARY | 2024-11-01 14:19 | XMS_ITS | Encounter Summary ---
Author Organization [facility] Address [address] [place] [address] Phone Care Team Providers Care Casting And Curing Operator Name Role Phone KeithTamanna forrestchadolly Stoddard DO Primary Care Provider + Kilo Zamudio DO Unavailable [phone] Encounter Details Date Type Department Care Team (Late st Contact Info) Description 10/15/2024 Telephone [facility] [address] [place] [address] Kilo Zamudio, DO [address] [place] [address] Social History Tobacco Use Types Packs/Day [...] on file documented as of this encounter Miscellaneous Notes * Telephone Encounter - vEerette Dowd RN - 10/15/2024 9:26 AM CST Canopy Call: Remigio pt called stated pt is needing Eliquis samples again return call [phone] [facility] DENTIST documented in this encounter Plan of Treatment Upcoming Encounters Date Type Department Care Team (Late st Contact Info) Description 01/21/2025 9:50 AM CDT Lab [facility] [address] [phone] Lab, [facility] 01/21/2025 10:00 AM CDT Office Visit [facility] [address] [phone] Kilo Zamudio, [address] [place] [phone] documented as of this encounter Visit Diagnoses Not on filedocumented in this encounter Care Teams Casting And Curing Operator Relationship Specialty Start Date End Date Adams Moses DO [address] [place] [address] PCP - General Family Medicine 01/10/22 Kilo Zamudio DO [address] [place] [phone] Consulting Physician Oncology 01/10/22 documented as of this encounter
--- OUTSIDE RECORDS SUMMARY | 2024-11-01 14:19 | XMS_ITS | Encounter Summary ---
Author Organization [facility] Address [facility] [place] [address] Care Team Providers Care Faculty Member Name Role Phone Adams Moses DO Primary Care Provider + Encounter Details Date Type Department Care Team (Late st Contact Info) Description 10/07/2023 [address] 1 Networkt Message Enc [facility] Family & Internal Medicine [facility] [address] [place] [address] Adams Moses DO [facility] [place] [address] Mammogram Results Social History Tobacco Use Types Packs/Day Years Used Date Smoking Tobacco: Former Cigarettes 1 40 1 977 - 2017 Passive Smoke Exposure: Never Smokeless Tobacco: Never Comments:Not a smoker Alcohol Use Standard Drinks/Week [...] week 04/25/2023 How often do you attend chur ch or restoration services? 1 to 4 times per year 04/25/2023 Do you belong to any clubs o r organizations such as mandaen groups, unions, fraternal or athletic groups, or [...] Date Recorded Patient Health Questionnaire-2 Score 0 05/26/2023 [facility] - Occupational Stress Questionnaire Answer Date Recorded [...] place to sleep or slept in a assisted (including now)? No 04/25/2023 Comments No Sex and Gender Information Value Date Recorded Sex Assigned at Female 10/17/2024 9:48 AM HEAD TEACHER Legal Sex Female 6:52 PM CDT Gender Identity Female 10/17/2024 9:48 AM HEAD TEACHER Sexual Orientation Not on file documented as of this encounter Functional Status * Are you deaf or do you have serious difficulty hearing Answer Date of Assessment Author Status No 04/25/2023 9:13 PM Marcia Mullins RN Active * Are you blind or do you have serious difficulty seeing, even when wearing glasses? Answer Date of Assessment Author Status No 04/25/2023 9:13 PM CHILANGOT Marcia Harman RN Active * Do you have serious difficulty walking or climbing stairs? Answer Date of Assessment Author Status Yes 04/25/2023 9:13 PM Marcia Mullins RN Active * Do you have difficulty dressing or bathing? Answer Date of Assessment Author Status No 04/25/2023 9:13 PM Marcia Mullins RN Active * Because of a physical, mental, or emotional condition, do you have difficulty doing errands alone such as visiting a doctor's office or shopping? Answer Date of Assessment Author Status No 04/25/2023 9:13 PM Marcia Mullins RN Active documented as of this encounter Mental Status * Because of a physical, mental, or emotional condition, do you have serious difficulty concentrating, remembering, or making decisions? Answer Entry Date Author Status No 04/25/2023 9:13 PM CDT Marcia Harman RN Active documented in this encounter Plan of Treatment Upcoming Encounters Date Type Department Care Team (Late st Contact Info) Description 11/21/2024 12:45 PM CDT Appointment [facility] [address] [place] [address] Arun Silva, [address] [facility] [address] [place] [address] 11/27/2024 10:00 AM CDT Office Visit [facility] [address] [facility] [address] [place] [address] Arun Silva, [address] [facility] [address] [place] [address] 01/14/2025 10:20 AM CDT Laboratory Only [facility] [address] [place] [place] [address] Adams Moses DO [address] [place] [address] 01/23/2025 9:20 AM CDT Office Visit [facility] [address] [place] [phone] Adams Moses DO [address] [place] [address] documented as of this encounter Goals Goal Patient Goal Type Associated Problems Recent Progress Patient-Stated? Author Establish Regular Follow-Ups with PCP Lifestyle On track( 023 10:35 AM CDT) No Hazel, Brooklyn E, RN Establish Plan for Symptom Monitoring Lifestyle [...] documented as of this encounter Care Teams Faculty Member Relationship Specialty Start Date End Date Adams Moses DO [address] [place] [address] PCP - General FAMILY PRACTICE 09/15/20 documented as of this encounter
== END 2024-11-01 14:16 | disposition home or self-care (01) ==
PROVIDERS: PCP Student in an Organized Health Care Education/Training Program; Visit Provider Student in an Organized Health Care Education/Training Program
DX: M85.89 Other specified disorders of bone density and structure, multiple sites (principal); Z78.0 Asymptomatic menopausal state
CPT/HCPCS: 77080

== ENCOUNTER 2025-01-06 13:04 | Outpatient (CLI) | payer OTHER, SELFPAY ==
--- NOTE | ~2025-01-06 | MM_ITS ---
EXAMINATION: MM screening shanna BI w deon HISTORY: Screening mammogram, family history of breast cancer in her sister. TECHNIQUE: Craniocaudal and mediolateral oblique 3-D tomosynthesis images were obtained and synthetic 2-D images were generated. CAD analysis was submitted and interpreted. COMPARISON: 10/04/2023, 03/29/2022 BREAST PARENCHYMAL COMPOSITION:Not Dense. There are scattered areas of fibroglandular density. FINDINGS: No suspicious mass, calcification, or architectural distortion are identified in either macario ast to suggest malignancy. There has been no suspicious interval change. IMPRESSION: No mammographic evidence of malignancy. Recommend routine screening mammography in one year. BI-RADS Category 1: Negative Reviewed, dictated and finalized at location .
--- OUTSIDE RECORDS SUMMARY | 2025-01-06 14:46 | XMS_ITS | Encounter Summary ---
Author Organization [facility] Address [address] [place] [address] Phone Care Team Providers Care Travel Administrator Name Role Phone Adams Moses Richi DO Primary Care Provider + Kilo Zamudio DO Unavailable [phone] Encounter Details Date Type Department Care Team (Late st Contact Info) Description 05/27/2024 Telephone [facility] [address] [address] Kilo Zamudio, DO [address] [place] [phone] Social History Tobacco Use Types Packs/Day [...] 9:50 AM CDT Lab [facility] [address] [address] Lab, [facility] 01/21/2025 10:00 AM CDT Office Visit [facility] [place] [address] [place] [address] Kilo Zamudio DO [address] [place] [address] documented as of this encounter Visit Diagnoses Not on filedocumented in this encounter Care Teams Travel Administrator Relationship Specialty Start Date End Date Adams Moses DO [address] [place] [address] PCP - General Family Medicine 01/10/22 Kilo Zamudio DO [address] [place] [phone] Consulting Physician Oncology 01/10/22 documented as of this encounter
--- OUTSIDE RECORDS SUMMARY | 2025-01-06 14:46 | XMS_ITS | Encounter Summary ---
Author Organization [facility] Address [address] [place] [address] Phone Care Team Providers Care Gun Striper Name Role Phone KeithTamanna forrestchadolly Stoddard DO Primary Care Provider + Kilo Zamudio DO Unavailable [phone] Encounter Details Date Type Department Care Team (Late st Contact Info) Description 10/15/2024 Telephone [facility] [place] [address] [place] [address] Kilo Zamudio, DO [address] [place] [address] Social History Tobacco Use Types [...] encounter Miscellaneous Notes * Telephone Encounter - Everette Dowd RN - 10/15/2024 9:26 AM CST Canopy Call: Remigio pt called stated pt is needing Eliquis samples again return call [phone] ITATIVE EXECUTIVE RESEARCHER documented in this encounter Plan of Treatment Upcoming Encounters Date Type Department Care Team (Late st Contact Info) Description 01/21/2025 9:50 AM CDT Lab [facility] [address] [phone] Lab, [facility] 01/21/2025 10:00 AM CDT Office Visit [facility] [address] [phone] Kilo Zamudio, [address] [place] [phone] documented as of this encounter Visit Diagnoses Not on filedocumented in this encounter Care Teams Gun Striper Relationship Specialty Start Date End Date Adams Moses DO [address] [place] [address] PCP - General Family Medicine 01/10/22 Kilo Zamudio DO [address] [place] [phone] Consulting Physician Oncology 01/10/22 documented as of this encounter
--- OUTSIDE RECORDS SUMMARY | 2025-01-06 14:47 | XMS_ITS | Encounter Summary ---
Author Organization [facility] Address 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
--- OUTSIDE RECORDS SUMMARY | 2025-01-06 14:47 | XMS_ITS | Encounter Summary ---
Author Organization [facility] Address [address] [place] [address] Care Team Providers Care Dye Box Operator Name Role Phone Adams Moses DO Primary Care Provider + Brooklyn Oliva RN Unavailable Encounter Details Date Type Department Care Team (Late Contact Info) Description 03/08/2023 MyChart Message Enc [facility] [address] [place], [place] [phone] [employer] Provider Air Quality Message Social History Tobacco Use Types Packs/Day Years Used Date Smoking Tobacco: Former Cigarettes 1 40 1 977 - 2016 Smokeless Tobacco: Never Alcohol Use Standard [...] Sex Assigned at Female 10/17/2024 9:48 AM 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 Legal Sex Female 6:52 PM CDT Gender Identity Female 10/17/2024 9:48 AM INVESTMENT 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 Sexual Orientation Not on file documented as of this encounter Plan of Treatment Upcoming Encounters Date Type Department Care Team (Late Contact Info) Description 01/14/2025 10:20 AM CDT Laboratory Only [facility] Family & Internal Medicine [address] [phone] Adams Moses, DO [address] [place] [address] 01/23/2025 9:20 AM CDT Office Visit [facility] Internal [facility] - [place] [address] [place] [address] Adams Moses, DO [address] [place] [address] 03/03/2025 9:40 AM CDT [facility] [address] [place] [phone] Mayra Guerra NP [address] [facility] [address] [place] [address] 11/27/2025 10:40 AM CDT Office Visit [facility] [address] [place] [phone] Arun Silva, [address] [place] [address] documented as of this encounter Goals Goal [...] documented as of this encounter Care Teams Dye Box Operator Relationship Specialty Start Date End Date Adams Moses DO [address] [place] [address] PCP - General FAMILY PRACTICE 09/15/20 Brooklyn Oliva, RN [address] [place] [address] Freight Trucker (Ambulatory) REGISTERED NURSE 04/26/23 documented as of this encounter
--- OUTSIDE RECORDS SUMMARY | 2025-01-06 14:47 | XMS_ITS | Encounter Summary ---
Author Organization [facility] Address [address] [place] [address] Phone Care Team Providers Care Insulation Nozzleman Name Role Phone Adams Moses Richi DO Primary Care Provider + Kilo Zamudio DO Unavailable [phone] Reason for Visit * Reason Onset Date Comments Canopy Call / bloody nose and coughing blood 11/2024 Encounter Details Date Type Department Care Team (Late st Contact Info) Description 12/12/2024 Telephone [facility] [address] [place] [address] Kilo Zamudio, [address] [place] [address] Canopy Call / bloody nose and coughing blood Social History Tobacco Use Types Packs/Day Years [...] encounter Miscellaneous Notes * Telephone Encounter - Nancy Haley RN - 12/12/2024 9:31 AM CDT Patient at [facility] ER. * Telephone Encounter - Nancy Haley RN - 12/12/2024 9:31 AM CDT Images from the original note were not included. Lisset Martino APRN, SALESPERSON [employer]ESS[employer] Charlotte Pendleton RN; Nathaniel Cruz MD; Mervat Waller APRN, SALESPERSON [employer] ACCESS[employer]IES; Kilo Zamudio, ; [facility] Nurse Pool9 minutes ago (9:20 AM) JT Agree to take her to the ED for evaluation. Stop eliquis for now as well until bleeding is under control. * Telephone Encounter - Charlotte Pendleton RN - 12/12/2024 9:16 AM CDT patients spouse Remigio wanted to speak to the nurse regarding the patients blood clots. He stated hewanted to talk to the nursebefore he decides to take her to the hospital . Returned call to patient, she has been having nose bleed for the last 4 days and is now coughing upblood. She is on eliquis. She called her PCP and they advised ER for evaluation. Advised ER for eval make sure blood counts are ok and possible imaging Any additional recomendations documented in this encounter Plan of Treatment Upcoming Encounters Date Type Department Care Team (Late st Contact Info) Description 01/21/2025 9:50 AM CDT Lab [facility] [address] [address] Lab, [facility] 01/21/2025 10:00 AM CDT Office Visit [facility] [address] [address] Kilo Zamudio DO [address] [place] [phone] documented as of this encounter Visit Diagnoses Not on filedocumented in this encounter Care Teams Insulation Nozzleman Relationship Specialty Start Date End Date Adams Moses DO [address] [place] [address] PCP - General Family Medicine 01/10/22 Kilo Zamudio DO [address] [place] [phone] Consulting Physician Oncology 01/10/22 documented as of this encounter
--- OUTSIDE RECORDS SUMMARY | 2025-01-06 14:47 | XMS_ITS | Clinical Summary ---
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) Patient to test blood sugar twice daily. 1 kit 08/04/20 21 Active Lancets MiscIndications:Con trolled type 2 diabetes mellitus with diabetic polyneuropathy, without long-term current use of insulin ([facility] HHS/[facility]) Use as directed 100 each 3 08/04/20 21 Active CONTOUR NEXT TEST test stripIndications:Co ntrolled type 2 diabetes mellitus with diabetic polyneuropathy, without long-term current use of insulin ([facility]) USE TO TEST BLOOD SUGARS ONCE DAILY 100 strip 7 10/24/19 23 Active aspirin EC (ECOTRIN) 81 MG tablet Take 1 tablet (81 mg total) by mouth daily. Active apixaban (ELIQUIS) 5 MG tabletIndications:A cute pulmonary embolism without acute cor pulmonale, unspecified pulmonary embolism type ([facility] HHS/HCC) TAKE 1 TABLET BY MOUTH TWICE A DAY 180 tablet 08/21/20 23 Active albuterol sulfate HFA 108 (90 Base) MCG/ACT inhalerIndications: Pulmonary emphysema, unspecified emphysema type ([facility] HHS/[facility]) INHALE 1 PUFF INTO THE LUNGS EVERY 4 (FOUR) HOURS NEEDED FOR SHORTNESS OF BREATH OR WHEEZING. 18 g 1 02/01/20 24 Active Cholecalciferol (D2000 ULTRA STRENGTH) 50 MCG (2000 UT) Cap Take 2,000 Units by mouth daily. Active Multiple Vitamins-Minerals (PRESERVISION AREDS 2 OR) Active atorvastatin (LIPITOR) 80 MG tabletIndications:H yperlipidemia associated with type 2 diabetes mellitus ([facility] HHS/[facility]) Take 1 tablet (80 mg total) by mouth nightly at bedtime. 90 tablet 3 04/16/20 24 Active montelukast (SINGULAIR) 10 MG tabletIndications:P ulmonary emphysema, unspecified emphysema type ([facility] HHS/HCC) TAKE 1 TABLET BY MOUTH EVERY DAY 90 tablet 1 10/16/19 25 Active olmesartan (BENICAR) 40 MG tabletIndications:H ypertension TAKE 1 TABLET BY MOUTH EVERY DAY 90 tablet 10/16/19 25 Active NIFEdipine ER (ADALAT CC) 30 MG 24 hr tablet Take 1 tablet (30 mg total) by mouth daily. 10/02/19 25 Active pantoprazole EC (PROTONIX) 40 MG tabletIndications:E pigastric abdominal pain,Lower abdominal pain,Elevated lipase TAKE 1 TABLET BY MOUTH TWICE A DAY 180 tablet 11/01/19 25 Active ondansetron (ZOFRAN-ODT) 8 MG disintegrating tabletIndications:A bdominal aortic atherosclerosis Take 1 tablet (8 mg total) by mouth every 12 (twelve) hours as needed for Nausea. 20 tablet 12/28/19 25 Active dicyclomine (BENTYL) 10 MG capsuleIndications: Colitis Take 1 capsule (10 mg total) by mouth 4 (four) times daily before meals and nightly for 30 days. 120 capsule 01/02/20 25 025 Active ondansetron (ZOFRAN-ODT) 4 MG disintegrating tabletIndications:N ausea Take 1 tablet (4 mg total) by mouth every 8 (eight) hours as needed for Nausea. 20 tablet 03/13/20 23 025 Discontinu ed(Formula ry change) metroNIDAZOLE (FLAGYL) 500 MG tablet Take 1 tablet (500 mg total) by mouth 2 (two) times daily for 7 days. 14 tablet 12/28/19 25 025 Active Problems Problem Noted Date Diagnosed Date Morbid (severe) obesity due to excess calories 1 09/16/2023 Junctional escape rhythm ([facility]/HCC [facility]) 08/25 Abnormal finding on GI tract imaging 06/28/2023 Irritable bowel syndrome with diarrhea Overview (06/21/2023): Added automatically from request for surgery [id number] Esophageal dysphagia 06/21/2023 Overview (06/21/2023): Added automatically from request for surgery [id number] GI bleed 04/25/2023 Heme positive stool 04/25/2023 Overview (04/26/2023): Added automatically from request for surgery [id number] Melena 04/25/2023 Overview (04/26/2023): Added automatically from request for surgery [id number] Hematochezia 04/25/2023 Overview (04/26/2023): Added automatically from request for surgery [id number] Acute blood loss anemia 04/25/2023 Overview (04/26/2023): Added automatically from request for surgery [id number] PAD (peripheral artery disease) 03/06/2023 S/P CABG x 3 01/06/2023 Coronary artery disease of n ative heart with stable angina pectoris 11/22/2022 Overview (12/02/2022): Added automatically from request for surgery [id number] Other pulmonary embolism wit h acute cor pulmonale, unspecified chronicity ([facility]) 01/07/2022 Chronic anticoagulation 01/07/2022 Coronary artery calcification seen on CT scan Mixed diabetic hyperlipidemi a associated with type 2 diabetes mellitus ([facility]) 01/07/2022 Atypical chest pain 12/31/2021 COPD (chronic obstructive pu lmonary disease) ([facility]) 12/31/2021 Grade II diastolic dysfunction 03/21/2021 Risk for falls 03/07/2021 Pulmonary hypertension ([facility]) 021 Rheumatoid arthritis, involv ing unspecified site, unspecified whether rheumatoid factor present ([facility]) 03/01/2021 Stage 3a chronic kidney disease 11/06/2020 Pulmonary nodule 10/11/2020 Abdominal aortic atherosclerosis 10/04/2020 Peripheral neuropathy 09/15/2020 Unspecified inflammation of eyelid 12/23/2016 Periorbital edema 12/19/2016 Herpes zoster 11/08/2016 Abscess of axilla, left 06/24/2016 Pneumonia 01/29/2016 Pulmonary emphysema ([facility]) 01/28/2016 Overview (09/15/2020): Annotation - 05Oct2016: Annotation: Emphysema/COPD (J43.9); Impression - 05Oct2016 Shweta Guerrero: Impression: Stable based upon sx and exam. Continue current treatment plan and f/u at least yearly.; Description: Emphysema/COPD (J43.9) Hemoptysis 01/28/2016 Chronic vertigo 11/03/2015 Glaucoma 11/03/2015 Hypertension associated with type 2 diabetes mellitus ([facility] HHS/HCC) 11/03/2015 Diabetes type 2, controlled ([facility]) Overview (09/15/2020): Annotation - 05Oct2016: Annotation: Diabetes type 2, controlled (E11.9); Impression - 05Oct2016 Cesar Shweta: Impression: Stable based on lab values and symptoms. Continue present treatment plan, control of risk factors and recheck at least yearly.; Description: Diabetes type 2, controlled (E11.9) Hyperlipidemia 11/03/2015 Resolved Problems Problem Noted Date Diagnosed Date Resolved Date Morbid obesity due to excess calories 03/01/2021 03/06/2023 Encounter for vitamin deficiency screening 07/11/2017 09/21/2020 Need for hepatitis C screening test 07/11/2017 09/21/2020 Immunization due 07/11/2017 09/21/2020 Hematuria 01/19/2017 03/06/2023 Need for vaccination with 13 -polyvalent pneumococcal conjugate vaccine 09/16/2016 Encounter for screening mamm ogram for breast cancer 01/28/2016 09/21/2020 Encounter for preventive health examination 08/19/2015 09/21/2020 Encounters Date Type Department Care Team Description 01/01/2025 9:20 AM CDT Office Visit [facility] - [address], [address] [place] [phone] Adams Moses DO Schaefer, Jennifer, NP Follow Up (F/u (ED f/u )) 01/01/2025 Travel 12/30/2024 Patient Outreach [facility] [address] [address] Brooklyn Oliva, ADVANCED PRACTICE NURSE F/U (12/27/24) 12/30/2024 Telephone [facility] [address] [address] Adams Moses DO Referral 12/27/2024 9:20 AM CDT - 12/27/2024 3:04 PM CDT Emergency [facility] Emergency Room [id number] [place] [address] Candi Bender MD Abdominal Pain Discharge Disposition: Home or Self Care (Routine Discharge) 12/27/2024 Travel 12/27/2024 Telephone [facility] [address] [address] Adams Moses, DO Information; Advice 12/16/2024 10:00 AM CDT Office Visit [facility] [address] [address] Adams Moses, DO Nosebleeds (The patient states she had nosebleeds 2 days in a row. She states she coughed up blood about 1 hour later. The patient states it looked like liver. ) 12/16/2024 Care Management [facility] [address] [address] Jessica Escobedo, CLIENT SERVICES VICE PRESIDENT 12/16/2024 Travel 12/12/2024 9:11 AM CDT - 12/12/2024 11:18 AM CDT Emergency [facility] Emergency Room [id number] [place] [address] Javed Benson MD Nosebleeds Discharge Disposition: Home or Self Care (Routine Discharge) 12/12/2024 Travel 12/12/2024 Telephone [facility] [address] [address] Adams Moses, DO Bleeding/Bruising 11/28/2024 Scan HEALTH INFO SRVCS Scanned, Doc [facility] 11/27/2024 10:00 AM CDT Office Visit [facility] - [address] [place] [phone] Luz Leung, Follow Up 11/27/2024 Travel 11/27/2024 Telephone [facility] [address] [address] Adams Moses, Referral 11/26/2024 Telephone [facility] - [facility] [address] [facility] [place] [address] Luz Leung, Results 11/21/2024 12:45 PM CDT - 11/21/2024 11:59 PM CDT Hospital Encounter [facility] [place] [address] Luz Leung, Discharge Disposition: Home or Self Care (Routine Discharge) 11/21/2024 Travel 11/18/2024 Telephone [facility] [address] [address] Adams Moses, Information 11/07/[address] [address] Adams Moses, DO Radiology Results 11/01/2024 Scan [employer] INFO SRVCS Scanned, Doc [facility] Group Bone Density Report (SCAN) 10/17/2024 9:40 AM SENIOR BUYER PLANNER Office Visit [facility] [address] [address] Adams Moses, DO Diabetes; Hypertension; Hyperlipidemia 10/17/2024 Travel from Last 3 Months Immunizations Immunization Administration Dates Next Due H1N1 Injectable 2009 Influenza 09/25/2009 Influenza (Generic) 08/18/2009,08/01/2008 Influenza Adult (Generic) 12/01/2021(Deferred: P atient Refused) Pneumococcal (Pneumovax 23) 12/14/2020,11/21/200 8 Pneumococcal (Prevnar 13) 07/28/2016 Shingrix 09/30/2022,04/01/2022 Td 03/22/2006 Tdap (Generic) 09/29/2022 Family History Medical History Relation Comments back pain Brother Cancer Father Cancer Mother Relation Status Comments Brother Alive Father Mother Social History Tobacco Use Types Packs/Day Years Used Date Smoking Tobacco: Former Cigarettes 1 40 1 977 - 2017 Passive Smoke Exposure: Never Smokeless Tobacco: Never Tobacco Cessation:Counseling Given: No Comments:Not a smoker Alcohol Use Standard Drinks/Week [...] often do you attend chur ch or sabianist services? 1 to 4 times per year 04/25/2023 Do you belong to any clubs o r organizations such as pentecostalism groups, unions, fraternal or athletic groups, or [...] Date Recorded Patient Health Questionnaire-2 Score 0 01/01/2025 [facility] - Occupational Stress Questionnaire Answer Date Recorded [...] place to sleep or slept in a chcf (including now)? No 04/25/2023 Comments No Sex and Gender Information Value Date Recorded Sex Assigned at Female 10/17/2024 9:48 AM SENIOR BUYER PLANNER Legal Sex Female 6:52 PM CDT Gender Identity Female 10/17/2024 9:48 AM SENIOR BUYER PLANNER Sexual Orientation Not on file Last Filed Vital Signs Vital Sign Reading Time Taken Comments Blood Pressure 122/78 01/01/2025 9:29 AM CDT Pulse 71 01/01/2025 9:29 AM CDT Temperature 36.5 C (97.7 F) 01/01/2025 9:29 AM CDT Respiratory Rate 22 01/01/2025 9:29 AM CDT Oxygen Saturation 100% 01/01/2025 9:29 AM CDT Inhaled Oxygen Concentration - - Weight 81.6 kg (180 lb) 01/01/2025 9:29 AM CDT Height 152.4 cm (5') 01/01/2025 9:29 AM CDT Body Mass Index 35.15 01/01/2025 9:29 AM CDT Plan of Treatment Upcoming Encounters Date Type Department Care Team (Late st Contact Info) Description 01/14/2025 10:20 AM CDT Laboratory Only [facility] - [place] [address] [place] [address] Adams Moses DO [address] [place] [address] 01/23/2025 9:20 AM CDT Office Visit [facility] - [place] [address] [place] [address] Adams Moses DO [address] [place] [address] 03/03/2025 9:40 AM CDT Office Visit [facility] - [facility] [address] [facility] [place] [address] Mayra Guerra NP [address] [facility] [address] [place] [address] 11/27/2025 10:40 AM CDT Office Visit [facility] - [facility] [address] [facility] [address] [place] [address] Luz Leung DO [address] [facility] [address] [place] [address] Health Maintenance Due Date Last Done Comments Annual Medicare Wellness Visit 08/05/2022 08/04/2021 Diabetes: Retinopathy Eye Exam 11/04/2022 11/04/2020 Mammogram Screening 10/04/2024 10/04/2023, 03/29/2022, 10/07/2020, Additional history exists Kidney Health Evaluation 01/14/2025 01/15/2024 Lipid Panel 02/25/2025 02/26/2024, 02/2024, 11/24/2022, Additional history exists Hemoglobin A1C 04/16/2025 10/17/2024, 02/2024, 04/16/2024, Additional history exists COVID-19 Vaccine ( - season) 2025 Postponed from 05/12/2024 (Patient Refused) RSV Immunization or 60+ Years (1 - Risk 60-74 years 1-dose series) 07/17/2025 Postponed fro m 2010 (Patient Refused) Dexa Scan (General) 11/01/2026 11/01/2024, 09/13/2022, 08/24/2017 DTaP, Tdap and Td Vaccines (2 - Td or Tdap) 09/29/2032 09/29/2022, 03/22/2006 Colorectal Cancer Screening Colonoscopy (10 Years) 06/26/2033 06/26/2023, 04/27/2023, 04/26/2023, Additional history exists Pneumococcal Vaccine: 50+ Years Completed 12/14/2020, 07/28/2016, 08/01/2008 Hepatitis C Completed 12/02/2021 Zoster Vaccines Completed 09/30/2022, 04/01/2022 PHQ-2 ([facility]) Completed 01/01/2025 Meningococcal B Vaccine Aged Out No l [...] track( 023 10:35 AM CDT) No Brooklyn Oliva RN Establish Plan for Symptom Monitoring Lifestyle On track( 023 10:35 AM CDT) No Brooklyn Oliva, ASHLEE Note: Monitor for s/sx of GI Bleed. Report new or worsening symptoms to pcp/specialist. Take medications as prescribed. Procedures Procedure Name Priority Date/Time Associated Diagnosis Comments XR CHEST PORTABLE STAT 12/27/2024 1:2 3 PM CDT TROPONIN, QUANT STAT 12/27/2024 11:59 AM CDT LACTIC ACID W REFLEX (SEPSIS) TIMED 12/27/2024 11:[address] ABD+PEL W CON STAT 12/27/2024 11:3 0 AM CDT ECG 12-LEAD STAT 12/27/2024 10:17 AM CDT PROTHROMBIN TIME, VENOUS STAT 12/27/2024 10:00 AM CDT MAGNESIUM STAT 12/27/2024 10:00 AM CDT LACTIC ACID W REFLEX (SEPSIS) STAT 12/27/2024 10:00 AM CDT LIPASE STAT 12/27/2024 10:00 AM CDT TROPONIN, QUANT STAT 12/27/2024 10:00 AM CDT COMPREHENSIVE METABOLIC PANEL STAT 12/27/2024 10:00 AM CDT CBC W/DIFF AUTOMATED STAT 12/27/2024 10:[address] CHEST WO CON STAT 12/12/2024 10:18 AM CDT XR CHEST PA+LAT STAT 12/12/2024 9:[address] LUNG SCREENING Routine 11/21/2024 1:2 8 PM CDT Cigarette nicotine dependence in remission BONE DENSITY GENERIC (SCAN ORDER) 11/01/2024 COLLECT.CAPILLARY (FNGR,HEEL,EAR) Routine 10/17/2024 9:55 AM SENIOR BUYER PLANNER Controlled type 2 diabetes mellitus with diabetic polyneuropathy, without long-term current use of insulin ([facility]/HCC HHS/HCC) HEMOGLOBIN, GLYCOSYLATED Routine 10/17/2024 Controlled type 2 diabetes mellitus with diabetic polyneuropathy, without long-term current use of insulin ([facility]/HCC HHS/HCC) LIPID PANEL Routine 01/15/2024 11:18 AM CDT Controlled type 2 diabetes mellitus with diabetic polyneuropathy, without long-term current use of insulin Hypertension associated with type 2 diabetes mellitus Mixed diabetic hyperlipidemia associated with type 2 diabetes mellitus MAMMOGRAM GENERIC (SCAN ORDER) 10/04/2023 COLONOSCOPY Routine 04/26/2023 3:10 PM CDT HEPATITIS C ANTIBODY Routine 12/02/2021 8:38 AM CDT Need for hepatitis C screening test DIABETIC RETINOPATHY EXAM (NEGATIVE)(SCAN ORDER) Routine 11/04/2020 from Last 3 Months or Most Recently Relevant to Health Maintenance Results * XR CHEST PORTABLE (12/27/2024 1:23 PM CDT) Anatomical Region Laterality Modality Chest Radiographic Althea ging 12/27/2024 1:27 PM CDT Impressions 12/27/2024 1:29 PM CDT IMPRESSION: No active cardiopulmonary disease. Mild scoliosis. Ordered By: CANDI BENDER Interpreted By: Jasper Ricketts MD, 12/27/2024 1:27 PM Narrative 12/27/2024 1:29 PM CDT [facility] [address] [place] [address] 12/27/2024, 1324 hours. HISTORY: COPD. Short of breath. EXAM: Portable AP chest. Correlation to study 12/12/2024. FINDINGS: Operative changes with prior median sternotomy approximated by wire sutures. Buttressing plate for anterior fixation lower cervical spine. Small surgical clips projected over the superior mediastinum and heart. The lungs are clear of active infiltrates. The heart size and pulmonary vascularity are within normal limits. No pleural effusion. No pneumothorax. Mild scoliosis with the curvature of the lower thoracic spine convex toward the right. Procedure Note Jasper Ricketts MD - 12/27/2024 [facility] [address] [place] [address] 12/27/2024, 1324 hours. HISTORY: COPD. Short of breath. EXAM: Portable AP chest. Correlation to study 12/12/2024. FINDINGS: Operative changes with prior median sternotomy approximated bywire sutures. Buttressing plate for anterior fixation lower cervicalspine. Small surgical clips projected over the superior mediastinum andheart. The lungs are clear of active infiltrates. The heart size and pulmonaryvascularity are within normal limits. No pleural effusion. Nopneumothorax. Mild scoliosis with the curvature of the lower thoracicspine convex toward the right. IMPRESSION: No active cardiopulmonary disease. Mild scoliosis. Ordered By: CANDI BENDER Interpreted By: Jasper Ricketts MD, 12/27/2024 1:27 PM us Candi Bender MD GENERAL IMAGING Final Result * LACTIC ACID W REFLEX (SEPSIS) (12/27/2024 11:59 AM CDT) Only the most recent of2 resultswithin the time period is included. LACTIC ACID VENOUS 2.0 0.4 - 2.0 MMOL/L 12/27/2024 12:20 PM CDT [facility] 12/27/2024 11:5 9 AM CDT us Candi Bender MD LABORATORY Final Result Performing Organization Address [facility] Co de Phone Number [facility] [address] [place] [address], [place] [phone] * (ABNORMAL) TROPONIN, QUANT (12/27/2024 11:59 AM CDT) Only the most recent of2 resultswithin the time period is included. TROPONIN I HIGH SENSITIVITY 447(HH) 0 - 50 ng/L 12/27/2024 12:22 PM CDT [facility] Comment: Critical Result(s) Called at: 12:20:37 on 12/27/2024 by: Radha Daily to and read back by:JENIFER ROSADO IN ER HIGH DOSES OF BIOTIN, TROPONIN-SPECIFIC AUTOANTIBODIES, AND ANTIBODY THERAPY CONTAINING HAMA MAY INTERFERE WITH THIS TEST RESULT. CORRELATION TO CLINICAL HISTORY AND PRESENTATION RECOMMENDED. 12/27/2024 11:5 9 AM CDT us Candi Bender MD LABORATORY Final Result Performing Organization Address [facility] Co de Phone Number [facility] [address] [place] [address], [place] [phone] * CT ABD+PEL W IV CON ONLY (12/27/2024 11:30 AM CDT) Anatomical Region Laterality Modality Abdomen Computed Tomogra phy 12/27/2024 11:4 5 AM CDT Impressions 12/27/2024 11:49 AM CDT IMPRESSION: 1. Findings are consistent with active colitis involving the terminal ileum, cecum, and ascending colon. This pattern is most attributable to ulcerative colitis or Crohn's disease. Infectious colitis can have a similar appearance. 2. Severe diverticulosis Ordered By: CANDI BENDER Interpreted By: Heath Johnson MD, 12/27/2024 11:45 AM Narrative 12/27/2024 11:49 AM CDT [facility] [address] [place] [address] CT ABDOMEN AND PELVIS WITH CONTRAST Exam date:12/27/2024 11:22 AM Clinical history: Abdomen pain. Technique: Dynamic helical images of the abdomen and pelvis were obtained. The patient received approximately 75 mL of Isovue 370 nonionic intravenous contrast through an IV in the left antecubital fossa. A dose lowering technique was used for this procedure, which may include, but is not limited to, dose reduction technique, automated exposure control, the use of iterative reconstruction, and ALARA (As Low As Reasonably Achievable) / Image Gently techniques. Comparison: May 09, 2024. FINDINGS: Images of the lower thorax demonstrate mild cardiomegaly. The lung bases are clear. Images of the abdomen demonstrate the overall size and morphology of the liver to be within normal limits. No hepatic lesions are observed. No ascites is seen. The gallbladder is surgically absent. The pancreas, spleen, and adrenal glands appear grossly normal. The kidneys are normal in size bilaterally. There is normal symmetric enhancement after the administration of contrast. No stones or hydronephrosis is apparent. Both ureters follow normal expected course through the retroperitoneum. Images of the pelvis demonstrate the urinary bladder to appear normal. The uterus is surgically absent. The stomach and small bowel have a normal overall appearance. The terminal ileum demonstrates mild circumferential mucosal thickening. This process continues through the cecum and ascending portion of the colon with prominent enhancement of the colonic mucosa consistent with active colitis. In addition, mild inflammatory changes are noted within the paracolic fat. This process is largely resolves at the hepatic flexure, however, severe diverticulosis is noted throughout the remainder of the colon. There is no evidence of active extravasation of contrast into the colon. Mild circumferential colonic wall thickening is also noted within the rectum Procedure Note Heath Johnson MD - 04/18/2025 [facility] [address] [place] [address] CT ABDOMEN AND PELVIS WITH CONTRAST Exam date:12/27/2024 11:22 AM Clinical history: Abdomen pain. Technique: Dynamic helical images of the abdomen and pelvis were obtained.The patient received approximately 75 mL of Isovue 370 nonionicintravenous contrast through an IV in the left antecubital fossa. A doselowering technique was used for this procedure, which may include, but isnot limited to, dose reduction technique, automated exposure control, theuse of iterative reconstruction, and ALARA (As Low As ReasonablyAchievable) / Image Gently techniques. Comparison: May 09, 2024. FINDINGS: Images of the lower thorax demonstrate mild cardiomegaly. The lung basesare clear. Images of the abdomen demonstrate the overall size and morphology of theliver to be within normal limits. No hepatic lesions are observed. Noascites is seen. The gallbladder is surgically absent. The pancreas,spleen, and adrenal glands appear grossly normal. The kidneys are normalin size bilaterally. There is normal symmetric enhancement after theadministration of contrast. No stones or hydronephrosis is apparent. Bothureters follow normal expected course through the retroperitoneum. Images of the pelvis demonstrate the urinary bladder to appear normal. Theuterus is surgically absent. The stomach and small bowel have a normal overall appearance. The terminalileum demonstrates mild circumferential mucosal thickening. This processcontinues through the cecum and ascending portion of the colon withprominent enhancement of the colonic mucosa consistent with activecolitis. In addition, mild inflammatory changes are noted within theparacolic fat. This process is largely resolves at the hepatic flexure,however, severe diverticulosis is noted throughout the remainder of thecolon. There is no evidence of active extravasation of contrast into thecolon. Mild circumferential colonic wall thickening is also noted withinthe rectum IMPRESSION: 1. Findings are consistent with active colitis involving the terminalileum, cecum, and ascending colon. This pattern is most attributable toulcerative colitis or Crohn's disease. Infectious colitis can have asimilar appearance. 2. Severe diverticulosis Ordered By: CANDI BENDER Interpreted By: Heath Johnson MD, 12/27/2024 11:45 AM us Candi Bender MD CT Final Result * ECG 12 lead (12/27/2024 10:17 AM CDT) 12/27/2024 10:1 7 AM CDT Narrative [facility] RAD - 12/31/2024 6:[address] [facility] Test Date: 2024-12-27 Pat Name: ISAURO GRIDER Department: 85 Room: EXAM 2 Gender: Female Director Of Dance: : 1950 Requested By: CANDI BENDER Order Number: [id number] Soraya RICHARDS: Syed Bajwa Measurements Intervals [place] Rate: 73 P: 71 VT: 165 QRS: 46 QRSD: 86 T: 56 QT: 392 QTc: 433 Interpretive Statements SINUS RHYTHM WITH MARKED SINUS ARRHYTHMIA NONSPECIFIC ST & T-WAVE ABNORMALITY Compared to ECG 04/26/2023 02:34:33 T-wave abnormality now present Procedure Note Syed Bajwa MD - 12/31/2024 [facility] Test Date: 2024-12-27 Pat Name: ISAURO GRIDER Department: 85 Room: EXAM 2 Gender: Female Director Of Dance: : 1950 Requested By: CANDI BENDER Order Number: [id number] Soraya Bajwa Measurements Intervals [place] Rate: 73 P: 71 VT: 165 QRS: 46 QRSD: 86 T: 56 QT: 392 QTc: 433 Interpretive Statements SINUS RHYTHM WITH MARKED SINUS ARRHYTHMIA NONSPECIFIC ST & T-WAVE ABNORMALITY Compared to ECG 04/26/2023 02:34:33 T-wave abnormality now present us Candi Bender MD ECG ORDERABLES Final Result [facility] RAD * (ABNORMAL) PROTIME/INR, VENOUS (12/27/2024 10:00 AM CDT) PROTIME 16.0(H) 9.1 - 12.4 SEC 12/27/2024 10:16 AM CDT [facility] INR 1.4 12/27/2024 10:16 AM CDT [facility] Comment: Recommend INR ranges for Oral Anticoagulant Therapy: Mechanical Cardiac Values 2.5-3.5 All others indication 2.0-3.0 12/27/2024 10:0 0 AM CDT us Candi Bender MD LABORATORY Final Result [facility] [address] [place] [address], * (ABNORMAL) COMPREHENSIVE METABOLIC PANEL (12/27/2024 10:00 AM CDT) GLUCOSE 189(H) 70 - 99 MG/DL 12/27/2024 10:27 AM CDT [facility] BUN 21(H) 7 - 18 MG/DL 12/27/2024 10:27 AM CDT [facility] CREATININE S/P/B 1.15(H) 0.55 - 1.02 MG/DL 12/27/2024 10:27 AM CDT [facility] SODIUM S/P/B 141 136 - 145 MMOL/L 12/27/2024 10:27 AM CDT [facility] POTASSIUM S/P/B 4.0 3.5 - 5.1 MMOL/L 12/27/2024 10:27 AM CDT [facility] CHLORIDE S/P/B 103 100 - 108 MMOL/L 12/27/2024 10:27 AM CDT [facility] CO2 28.5 21 - 32 MMOL/L 12/27/2024 10:27 AM [facility] CALCIUM S/P/B 9.0 8.5 - 10.1 MG/DL 12/27/2024 10:27 AM [facility] BILIRUBIN TOTAL S/P/B 0.9 0.2 - 1.2 MG/DL 12/27/2024 10:27 AM [facility] TOTAL PROTEIN S/P/B 6.9 6.4 - 8.2 G/DL 12/27/2024 10:27 AM [facility] ALBUMIN S/P/B 3.3(L) 3.4 - 5.0 G/DL 12/27/2024 10:27 AM [facility] AST 17 15 - 37 U/L 12/27/2024 10:27 AM [facility] ALT 16 14 - 55 U/L 12/27/2024 10:27 AM [facility] ALKALINE PHOSPHATASE S/P/B 135 50 - 136 U/L 12/27/2024 10:27 AM [facility] ANION GAP 9.5 5 - 15 MMOL/L 12/27/2024 10:27 AM [facility] BUN CREATININE RATIO 18.3 6 - 26 12/27/2024 10:27 AM [facility] A/G RATIO 0.9(L) 1.0 - 2.0 RATIO 12/27/2024 10:27 AM [facility] GFR ESTIMATE 50(L) >90 ML/MIN/1.7 3 M2 12/27/2024 10:27 AM [facility] Comment: NOTE: eGFR is not calculated for patients <18 years of age. This is an estimated GFR calculation using the new CKD EPI creatinine equation without race and so does not require a correction factor for race. This estimated GFR should not be used for calculating drug doses. 12/27/2024 10:0 0 AM CDT us Candi Bender MD LABORATORY Final Result [facility] [address] [place] [phone], * (ABNORMAL) CBC W/DIFF AUTOMATED (12/27/2024 10:00 AM CDT) Pathologist [facility] WBC 13.33(H) 4.4 - 11.0 x10'3/uL 12/27/2024 10:13 AM CDT [facility] RBC 4.52 4.50 - 5.10 x10'6/uL 12/27/2024 10:13 AM CDT [facility] HGB 11.8(L) 12.3 - 15.3 G/DL 12/27/2024 10:13 AM CDT [facility] HCT 37.6 35.9 - 44.6 % 12/27/2024 10:13 AM CDT [facility] MCV 83.2 80.0 - 96.0 FL 12/27/2024 10:13 AM CDT [facility] MCH 26.1 25.3 - 30.9 PG 12/27/2024 10:13 AM CDT [facility] MCHC 31.4 31.0 - 34.1 G/DL 12/27/2024 10:13 AM CDT [facility] RDW 18.6(H) 12.4 - 15.1 % 12/27/2024 10:13 AM CDT [facility] PLT 196 151 - 353 x10'3/uL 12/27/2024 10:13 AM CDT [facility] MPV 11.0 9.6 - 12.0 FL 12/27/2024 10:13 AM CDT [facility] RBC MORPHOLOGY NORMAL 12/27/2024 10:13 AM CDT [facility] PLT MORPH. NORMAL 12/27/2024 10:13 AM CDT [facility] WBC MORPHOLOGY NORMAL 12/27/2024 10:13 AM CDT [facility] LYMPHOCYTES % 9.9(L) 15.8 - 45.0 % 12/27/2024 10:13 AM CDT [facility] NEUTROPHILS % 82.4(H) 42.1 - 71.9 % 12/27/2024 10:13 AM CDT [facility] MONOCYTES % 6.8 5.7 - 12.5 % 12/27/2024 10:13 AM CDT [facility] EOSINOPHILS 0.0 0.0 - 5.6 % 12/27/2024 10:13 AM CDT [facility] BASOPHILS 0.2 0.0 - 1.3 % 12/27/2024 10:13 AM CDT [facility] ABS. NEUTROPHILS 10.98(H) 1.40 - 6.00 x10'3/uL 12/27/2024 10:13 AM CDT [facility] IMMATURE GRANS % 0.7(H) 0.0 - 0.5 % 12/27/2024 10:13 AM CDT [facility] ABS. LYMPHOCYTES 1.32 0.80 - 4.70 x10'3/uL 12/27/2024 10:13 AM CDT [facility] 12/27/2024 10:0 0 AM CDT us Candi Bender MD LABORATORY Final Result [facility] [address] [place] [address], [place] [phone] * (ABNORMAL) MAGNESIUM (12/27/2024 10:00 AM CDT) MAGNESIUM 1.7(L) 1.8 - 2.4 MG/DL 12/27/2024 10:27 AM CDT [facility] 12/27/2024 10:0 0 AM CDT us Candi Bender MD LABORATORY Final Result [facility] [address] [place] [address], [place] [phone] * LIPASE (12/27/2024 10:00 AM CDT) LIPASE 47 16 - 77 UNITS/L 12/27/2024 10:27 AM CDT [facility] 12/27/2024 10:0 0 AM CDT us Candi Bender MD LABORATORY Final Result Performing Organization Address City/[facility]/ZIP Co de Phone Number [facility] [address] [place] [address], [place] [phone] * CT CHEST WO CON (12/12/2024 10:18 AM CDT) Anatomical Region Laterality Modality Chest Computed Tomogra phy 12/12/2024 10:2 6 AM CDT Impressions 12/12/2024 10:31 AM CDT IMPRESSION: No tree-in-bud nodularity suggest aspiration. No consolidative or pleural effusion changes are present in the right or left lung. Stable changes within the right and left lung as compared to prior CT from November 2023 and November 21, 2024. Follow-up lung screening CT recommended in November 2025 per prior report. Ordered By: JAVED BENSON Interpreted By: Gareth Juarez MD, 12/12/2024 10:26 AM Narrative 12/12/2024 10:31 AM CDT [facility] [address] [place] [address] Procedure(s): CT CHEST WO CON Date of service: 12/12/2024 10:16 AM Provided clinical information: 74 years, Female, possible asporation. changed CT scan nosebleed. Possible aspiration. Procedure and materials: Helical images of the chest are obtained from superior to the thoracic inlet. Examination is performed without intravenous contrast A dose lowering technique was used for this procedure, which may include, but is not limited to, dose reduction technique, automated exposure control, iterative reconstruction, ALARA (As Low As Reasonably Achievable), or Image Gently techniques. Comparison studies: Chest CT November 21, 2024, lung screening. Findings: Axillae: No enlarged axillary lymph nodes. Mediastinum/So:No enlarged mediastinal or hilar lymph nodes are present. Mediastinal calcifications due to prior granulomatous disease. Lung Parenchyma:Atelectatic and scarring changes are present in the right and left lung. There are nodular densities present in the right and left lung. These have been seen and evaluated on prior CT from November 21, 2024. These are also present on prior CT from November 20, 2023. Stable scarring changes right upper lung image #25. This is stable compared back to November 2023. Additional other areas of scarring are present in the right lung laterally and posteriorly. These are stable compared back to November 2023. Stable scarring and pleural thickening changes in the left lower lung laterally. No effusions are present. No consolidations are present. No evidence of tree-in-bud formation to suggest changes of aspiration. No groundglass opacifications within the lungs. Recommend the patient continue with lung screening CT in 12 months per recommendation on prior CT report. Visualized Upper abdominal structures:Unremarkable. Bone Windows:Diffuse degenerative changes of the thoracic spine. Procedure Note Gareth Juarez MD - 12/12/2024 [facility] [address] [place] [address] Procedure(s): CT CHEST WO CON Date of service: 12/12/2024 10:16 AM Provided clinical information: 74 years, Female, possible asporation.changed CT scan nosebleed. Possible aspiration. Procedure and materials: Helical images of the chest are obtained fromsuperior to the thoracic inlet. Examination is performed withoutintravenous contrast A dose lowering technique was used for this procedure, which may include,but is not limited to, dose reduction technique, automated exposurecontrol, iterative reconstruction, ALARA (As Low As ReasonablyAchievable), or Image Gently techniques. Comparison studies: Chest CT November 21, 2024, lung screening. Findings: Axillae: No enlarged axillary lymph nodes. Mediastinum/So:No enlarged mediastinal or hilar lymph nodes are present.Mediastinal calcifications due to prior granulomatous disease. Lung Parenchyma:Atelectatic and scarring changes are present in the rightand left lung. There are nodular densities present in the right and leftlung. These have been seen and evaluated on prior CT from November 21, 2024.These are also present on prior CT from November 20, 2023. Stable scarringchanges right upper lung image #25. This is stable compared back to November2023. Additional other areas of scarring are present in the right lunglaterally and posteriorly. These are stable compared back to November 2023.Stable scarring and pleural thickening changes in the left lower lunglaterally. No effusions are present. No consolidations are present. Noevidence of tree-in-bud formation to suggest changes of aspiration. Nogroundglass opacifications within the lungs. Recommend the patientcontinue with lung screening CT in 12 months per recommendation on priorCT report. Visualized Upper abdominal structures:Unremarkable. Bone Windows:Diffuse degenerative changes of the thoracic spine. IMPRESSION: No tree-in-bud nodularity suggest aspiration. No consolidative or pleuraleffusion changes are present in the right or left lung. Stable changes within the right and left lung as compared to prior CT fromNovember 2023 and November 21, 2024. Follow-up lung screening CT recommended inNovember 2025 per prior report. Ordered By: JAVED BENSON Interpreted By: Gareth Juarez MD, 12/12/2024 10:26 AM Javed Benson MD CT Final Result * XR CHEST PA+LAT (12/12/2024 9:43 AM CDT) Anatomical Region Laterality Modality Chest Radiographic Althea ging 12/12/2024 9:50 AM CDT Impressions 12/12/2024 9:52 AM CDT IMPRESSION: Linear opacifications left lower lung due to atelectasis and or infiltrate. Right perihilar infiltrates are present. Blunting left costophrenic angle due to pleural effusion and/or pleural thickening. Follow-up radiograph in 8 weeks recommended to ensure resolution. Ordered By: JAVED BENSON Interpreted By: Gareth Juarez MD, 12/12/2024 9:50 AM Narrative 12/12/2024 9:52 AM CDT [address] [place] [address] Procedure(s): XR CHEST PA+LAT Date of service: 12/12/2024 9:27 AM Provided clinical information: 74 years, Female, Hemoptysis Procedure and materials: PA and lateral Comparison studies: Chest CT November 21, 2024. Findings: Patient's post sternotomy. Postsurgical changes lower cervical spine. Left lower lung opacification due to atelectasis. Mild right perihilar opacifications are present this may relate to underlying infectious change. This is new as compared to prior CT. No blunting the costophrenic angle on the right. Slight blunting on the left due to pleural effusion and/or pleural thickening. No cardiomegaly. Procedure Note Gareth Juarez MD - 12/12/[address] [place] [address] Procedure(s): XR CHEST PA+LAT Date of service: 12/12/2024 9:27 AM Provided clinical information: 74 years, Female, Hemoptysis Procedure and materials: PA and lateral Comparison studies: Chest CT November 21, 2024. Findings: Patient's post sternotomy. Postsurgical changes lower cervical spine. Left lower lung opacification due to atelectasis. Mild right perihilaropacifications are present this may relate to underlying infectiouschange. This is new as compared to prior CT. No blunting the costophrenic angle on the right. Slight blunting on theleft due to pleural effusion and/or pleural thickening. No cardiomegaly. IMPRESSION: Linear opacifications left lower lung due to atelectasis and orinfiltrate. Right perihilar infiltrates are present. Blunting leftcostophrenic angle due to pleural effusion and/or pleural thickening. Follow-up radiograph in 8 weeks recommended to ensure resolution. Ordered By: JAVED BENSON Interpreted By: Gareth Juarez MD, 12/12/2024 9:50 AM Javed Benson MD GENERAL IMAGING Final Result * CT LUNG SCREENING (11/21/2024 1:28 PM CDT) Anatomical Region Laterality Modality Chest Computed Tomogra phy 11/26/2024 4:13 PM CDT Impressions 11/26/2024 4:18 PM CDT IMPRESSION: 1. LUNG-RADS category 2: Benign appearance or behavior-nodules with a very low likelihood of becoming a clinically active cancer due to size or lack of growth. 2. LUNG-RADS category S: Negative, no new/unknown potentially significant incidental findings requiring urgent additional evaluation. 3. Other incidental findings as above. RECOMMENDATIONS: Follow-up LDCT Chest in 12 months (on or around 11/21/2025). Ordered By: LUZ LEUNG Interpreted By: Vijay Huang MD, 11/26/2024 4:13 PM Narrative 11/26/2024 4:18 PM CDT [facility] [address] [place], [place] [address] EXAM: LUNG SCREENING LOW-DOSE CT THORAX WITHOUT CONTRAST DATE: 11/21/2024 1:21 PM HISTORY: Asymptomatic patient meeting NCCN high-risk criteria for lung screening. COMPARISON: CT chest 11/20/2023 TECHNIQUE: Noncontrast, helical, low-dose CT (LDCT) chest per standard departmental protocol. A dose lowering technique was used for this procedure, which may include, but is not limited to, dose reduction technique, automated exposure control, iterative reconstruction, ALARA (As Low As Reasonably Achievable), or Image Gently techniques. FINDINGS: Lung Screening Specific (LUNG-RADS): There are numerous scattered subcentimeter pulmonary nodules. For reference: 6 mm solid nodule left upper lobe axial image 33. Stable. LungRADS 2. 5 mm semisolid nodule right upper lobe axial image 35. Stable. LungRADS 2. 3 mm solid nodule right lower lobe axial image 90. Stable. LungRADS 2. 4 mm solid nodule left lower lobe axial image 59. Stable. LungRADS 2. Potentially Significant Incidentals (LUNG-RADS category S): None. Pulmonary Incidentals: Mild bibasilar subsegmental atelectasis. Mild emphysematous changes. Other Incidentals: Status post median sternotomy and prior CABG. Moderate atherosclerotic calcifications of the thoracic aorta. Partially visualized lower cervical spinal fusion hardware. Colonic diverticulosis. Procedure Note Vijay Huang MD - 11/26/[address] [address] EXAM: LUNG SCREENING LOW-DOSE CT THORAX WITHOUT CONTRAST DATE: 11/21/2024 1:21 PM HISTORY: Asymptomatic patient meeting NCCN high-risk criteria for lungscreening. COMPARISON: CT chest 11/20/2023 TECHNIQUE: Noncontrast, helical, low-dose CT (LDCT) chest per standarddepartmental protocol. A dose lowering technique was used for this procedure, which may include,but is not limited to, dose reduction technique, automated exposurecontrol, iterative reconstruction, ALARA (As Low As ReasonablyAchievable), or Image Gently techniques. FINDINGS: Lung Screening Specific (LUNG-RADS): There are numerous scattered subcentimeter pulmonary nodules. Forreference: 6 mm solid nodule left upper lobe axial image 33. Stable. LungRADS 2. 5 mm semisolid nodule right upper lobe axial image 35. Stable. LungRADS2. 3 mm solid nodule right lower lobe axial image 90. Stable. LungRADS 2. 4 mm solid nodule left lower lobe axial image 59. Stable. LungRADS 2. Potentially Significant Incidentals (LUNG-RADS category S): None. Pulmonary Incidentals: Mild bibasilar subsegmental atelectasis. Mildemphysematous changes. Other Incidentals: Status post median sternotomy and prior CABG. Moderateatherosclerotic calcifications of the thoracic aorta. Partially visualizedlower cervical spinal fusion hardware. Colonic diverticulosis. IMPRESSION: 1. LUNG-RADS category 2: Benign appearance or behavior-nodules with a verylow likelihood of becoming a clinically active cancer due to size or lackof growth. 2. LUNG-RADS category S: Negative, no new/unknown potentially significantincidental findings requiring urgent additional evaluation. 3. Other incidental findings as above. RECOMMENDATIONS: Follow-up LDCT Chest in 12 months (on or around11/21/2025). Ordered By: LUZ LEUNG Interpreted By: Vijay Huang MD, 11/26/2024 4:13 PM Luz Leung DO CT Final Resu lt * BONE DENSITY GENERIC (SCAN ORDER) (11/01/2024) Anatomical Region Laterality Modality Other 11/01/2024 [facility] Scanned SCANNING Final Resu lt * (ABNORMAL) HEMOGLOBIN, GLYCOSYLATED (10/17/2024) HGB A1C 7.1(A) % [facility] 10/17/2024 Adams Moses DO LABORATORY Final Re sult [facility] [address] [place] [address], * (ABNORMAL) LIPID PANEL (01/15/2024 11:18 AM CDT) Pathologist [facility] CHOLESTEROL 145 <200 MG/DL 01/16/2024 9:52 AM CDT [facility] TRIGLYCERIDES 146 <150 MG/DL 01/16/2024 9:52 AM CDT [facility] HDL 50 >40 MG/DL 01/16/2024 9:52 AM CDT [facility] LDL-C 66 <100 MG/DL 01/16/2024 9:52 AM CDT [facility] VLDL CALCULATION 29(H) 5 - 28 MG/DL 01/16/2024 9:52 AM CDT [facility] CHOL/HDL RATIO 2.9 0.0 - 4.0 01/16/2024 9:52 AM CDT [facility] LDL/HDL 1.3 0.41 - 2.13 01/16/2024 9:52 AM CDT [facility] NON HDL CHOLESTEROL 95 <140 MG/DL 01/16/2024 9:52 AM CDT [facility] 01/15/2024 11:1 8 AM CDT Adams Moses DO LABORATORY Final Re sult [facility] [address] [place] [address], [place] [phone] * MAMMOGRAM GENERIC (SCAN ORDER) (10/04/2023) Anatomical Region Laterality Modality Other 10/04/2023 us [facility] Scanned SCANNING Final Resu lt * HEPATITIS C ANTIBODY (12/02/2021 8:38 AM CDT) HEPATITIS C AB NON-REACTI VE NON-REACT DC 12/02/2021 6:21 PM CDT [facility] Comment: ANTIBODIES TO HCV NOT DETECTED. DOES NOT EXCLUDE THE POSSIBILITY OF EXPOSURE TO HCV. 12/02/2021 8:38 AM CDT Adams Moses DO LABORATORY Final Re sult [facility] [address] [place] [address], [place] [phone] [id number] * DIABETIC RETINOPATHY EXAM (NEGATIVE)(SCAN) (11/04/2020) us Documents Scanned SCANNING Final Result Performing Organization Address [facility] Co de Phone Number [facility] * COLONOSCOPY GENERIC (10/18/2016) 10/18/2016 Narrative 10/18/2016 Ordered by an unspecified provider. 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
--- OUTSIDE RECORDS SUMMARY | 2025-01-06 14:47 | XMS_ITS | Clinical Summary ---
Author Organization [facility] Address [address], [facility] [address] [place] [address] Phone Care Team Providers Care Health Club Attendant Name Role Phone Adams Moses DO Primary Care Provider + Kilo Zamudio DO Unavailable [phone] Allergies Active Allergy Reactions Criticality Noted Date [...] Disease involving a Thrombosis or an Embolism 01/02/20 Active apixaban (ELIQUIS) 5 MG TabletIndications: History of Thromboembolic Disease Take 1 Tablet by mouth 2 times daily. Indications: History of Disease involving a Thrombosis or an Embolism 11/16/19 25 025 Discontin ued(Reord er) Active Problems [...] Date Type Department Care Team Description 01/01/2025 11:00 AM CDT Clinical Support [facility] [address] [address] Nurse, Cc Christal Other acute pulmonary embolism without acute cor pulmonale (Primary Dx) 01/01/2025 Travel 12/31/2024 Telephone [facility] [address] [address] Kilo Zamudio, DO Canopy Call / Eliquis sample 12/12/2024 Telephone [facility] [address] [address] Kilo Zamudio, DO Canopy Call / bloody nose and coughing blood 12/05/2024 3:00 PM CDT Clinical Support [facility] [address] [address] Nurse, Cc Christal Other acute pulmonary embolism without acute cor pulmonale (HCC) (Primary Dx) 12/05/2024 Travel 12/05/2024 Telephone [facility] [address] [address] Kilo Zamudio DO Canopy Call / eliquis 11/12/2024 9:00 AM PALLET SORTER Clinical Support [facility] [address] [address] Nurse, Cc Ofalcides Other acute pulmonary embolism without acute cor pulmonale (HCC) (Primary Dx) 11/12/2024 Travel 11/11/2024 Telephone [facility] [address] [address] Kilo Zamudio DO Eliquis 10/18/2024 11:30 AM PALLET SORTER Clinical Support [facility] [address] [address] Nurse, Luma Siegel Other acute pulmonary embolism without acute cor pulmonale (HCC) (Primary Dx) 10/18/2024 Telephone [facility] [address] [address] Kilo Zamudio DO 10/18/2024 Travel 10/15/2024 Telephone [facility] [address] [address] Kilo Zamudio DO from Last 3 Months Family History Medical [...] Comments Blood Pressure 106/68 07/23/2024 10:10 AM PALLET SORTER Pulse 68 07/23/2024 10:10 AM PALLET SORTER Temperature 36.7 C (98 F) 07/23/2024 10:10 AM PALLET SORTER Respiratory Rate 18 07/23/2024 10:10 AM PALLET SORTER Oxygen Saturation 94% 07/23/2024 10:10 AM PALLET SORTER Inhaled Oxygen Concentration - - Weight 83.2 kg (183 lb 6.4 oz) 07/23/2024 10:10 AM PALLET SORTER Height 152.4 cm (5') 07/23/2024 10:10 AM PALLET SORTER Body Mass Index 35.82 07/23/2024 10:10 AM PALLET SORTER Plan of Treatment Upcoming Encounters Date Type Department Care Team (Late st Contact Info) Description 01/21/2025 9:50 AM CDT Lab [facility] [address] [address] Lab, Cc [facility] 01/21/2025 10:00 AM CDT Office Visit [facility] [address] [address] Kilo Zamudio, [address] [place] [address] Health Maintenance Due Date Last Done Comments DEXA Bone Density 1950 Diabetes: Eye Exam 1950 Diabetes: Foot Exam 1950 Mammogram 1950 Cologuard 2000 Respiratory Syncytial Virus (RSV) Immunization (Adult) (1 - Risk 60-74 years 1-dose series) 2010 Immunochemical Fecal Occult Blood 04/25/2024 04/25/2023 SARS-COV-2 Immunization ( season) 2024 Diabetes: Hemoglobin A1c 04/16/20252 025, 07/17/2024, 04/16/2024, Additional history exists Diabetes: Nephropathy Screening 07/23/2025 07/23/2024, 01/23/2024, 07/25/2023, Additional history exists Colonoscopy 06/26/2033 06/26/2023, 04/26/2023 Colorectal Cancer Screening 06/26/2033 06/26/2023, 04/26/2023 Influenza Immunization Discontinued 08/18/2009, 2007 Pneumococcal Immunization (50+ years) Completed 12/14/2020, 07/28/2016, 08/01/2008 Hepatitis C Virus (HCV) Screening Completed 12/02/2021 DTaP/Tdap/Td Immunization Discontinued 09/29/2022, 08/2006 TdaP Immunization Completed 09/29/2022 Zoster Immunization Completed 09/30/2022, 2 Hepatitis B Immunization Aged Out No longer [...] (COMPREHENSIVE METABOLIC PANEL) Routine 07/23/2024 9:51 AM PALLET SORTER Other acute pulmonary embolism without acute cor pulmonale (HCC) from Last 3 Months or Most Recently Relevant to Health Maintenance Results * (ABNORMAL) CMP (COMPREHENSIVE METABOLIC PANEL) (07/23/2024 9:51 AM PALLET SORTER) Glucose 163(H) 70 - 105 mg/dL [facility] Blood Urea Nitrogen 22 7 - 25 mg/dL [facility] Creatinine 1.1 0.6 - 1.2 mg/dL [facility] Sodium 141 136 - 145 mEq/L [facility] Potassium 4.1 3.5 - 5.1 mEq/L [facility] Chloride 106 98 - 107 mEq/L [facility] Bicarbonate 25 21 - 31 mEq/L [facility] Total Bilirubin 1.1(H) 0.3 - 1.0 mg/dL [facility] Alk. Phosphatase 99 34 - 104 U/L [facility] Aspartate Aminotransferase 15 13 - 39 U/L [facility] Alanine Aminotransferase 12 7 - 52 U/L [facility] Total Protein 6.4 6.4 - 8.9 g/dL [facility] Albumin 3.9 3.5 - 5.7 g/dL [facility] Calcium 9.2 8.6 - 10.3 mg/dL [facility] Anion Gap 14.1 7.0 - 15.0 mEq/L [facility] Globulin 2.5 2.0 - 3.5 g/dL [facility] EGFR 53(L) >60 ml/min/1. 73m2 CANCER DIGESTER OPERATOR [facility] Comment: This eGFR is calculated using 2020 CKD-EPI Creatinine equation without race modifier based on the NKF-ASN task force recommendations Blood 07/23/2024 9:51 AM PALLET SORTER Narrative CANCER DIGESTER OPERATOR [facility] - 07/23/2024 10:45 AM PALLET SORTER Release to patient->Immediate IS THE PATIENT REQUIRED TO BE FASTING FOR 8 HOURS?->No us Mervat Waller OPERATOR RECEPTIONIST, LOGISTICS VICE PRESIDENT CHEMISTRY ORDERABLE S Final Result CANCER DIGESTER OPERATOR [facility] [address], from Last 3 Months or Most Recently Relevant to Health Maintenance Insurance MEDICARE C E[employer] Care Teams Health Club Attendant Relationship Specialty [place] [address] [place] [address] PCP - General Family Medicine 01/10/22 Kilo Zamudio DO [address] [place] [phone] Consulting Physician Oncology 01/10/22
--- OUTSIDE RECORDS SUMMARY | 2025-01-06 14:47 | XMS_ITS | Referral Summary ---
Author Organization [facility] [address] Address [address] [place] [address] Care Team Providers Care Castings Drafter Name Role Phone Yemi Carrillo MD Unavailable [phone] Gopi Almaguer MD Unavailable [phone] Adams Moses DO Primary Care Provide r Eusebio Love MD Unavailable [phone] Allergies Active Allergy Reactions Criticality Noted Date [...] enteric coated tabletIndicatio ns:Coronary artery disease involving [place] coronary artery of [place] heart without angina pectoris Take 1 tablet [...] arthritis(714.0) 03/01/2021 Coronary artery disease invo lving [place] coronary artery of [place] heart without angina pectoris 03/01/2021 Peripheral vascular [...] type 2, controlled (E11.9); Impression - 05Oct2016 Goran Guerreroanda: Impression: Stable based on lab values and [...] Date Diagnosed Date Resolved Date CAD in [place] artery 12/22/2022 023 Coronary artery disease of n ative heart with stable angina pectoris 11/22/2022 08/25/2023 Overview (11/22/2022): Added automatically from request for surgery [id number] Coronary artery calcification seen on CT scan 01/08/2008/25/2023 Hypertension associated with diabetes 01/07/2022 02/14/2023 Atypical chest pain 12/31/2021 08/25/20 Hyperlipidemia 11/03/2015 08/25/2023 Social History Tobacco Use [...] than three times a week 12/23/2022 Attends [employer] Not on file 12/23 Active Member [...] place to sleep or slept in a half-way (including now)? No 12/23/2022 Personal Safety Answer Date Recorded Have you ever been in or are you currently in a harmful physical or emotional relationship or is someone making you feel afraid or unsafe? Denies 03/13/2023 Comments Unknown Sex and Gender Information Value Date Recorded Sex Assigned at Not on file Legal Sex Female 12:25 AM LEAD ASSISTANT MANAGER Gender Identity Female 09/27/2023 3:25 PM LEAD ASSISTANT MANAGER Sexual Orientation Not on file Last Filed Vital Signs Vital Sign Reading Time Taken Comments Blood Pressure 144/86 10/02/2024 10:56 AM LEAD ASSISTANT MANAGER Pulse 57 10/02/2024 10:56 AM LEAD ASSISTANT MANAGER Temperature 36.7 C (98.1 F) 03/13/2023 6:51 PM CDT Respiratory Rate 17 03/13/2023 6:51 PM CDT Oxygen Saturation 98% 10/02/2024 10:56 AM LEAD ASSISTANT MANAGER Inhaled Oxygen Concentration - - Weight 82.1 kg (181 lb) 10/02/2024 10:56 AM LEAD ASSISTANT MANAGER Height 152.4 cm (5') 10/02/2024 10:56 AM LEAD ASSISTANT MANAGER Body Mass Index 35.35 10/02/2024 10:56 AM LEAD ASSISTANT MANAGER Plan of Treatment Not on file Procedures Procedure Name Priority Date/Time Associated Diagnosis Comments POCT LIPID PANEL Routine 02/26/2024 9:39 AM CDT Lipid screening CT VIRTUAL COLONOSCOPY DIAGNOSTIC WO CONTRAST Schedule Routine, Read Routine (OP Routine) 09/13/2023 2:02 PM LEAD ASSISTANT MANAGER Screening for malignant neoplasm of colon EGFR STAT 01/05/2023 1:00 PM CDT HEMOGLOBIN A1C Routine 12/08/2022 9:30 AM CDT Preop testing Controlled diabetes mellitus type 2 with complications, unspecified whether 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 insulin use (HCC) from Last 3 Months or Most Recently Relevant to Health Maintenance Results * POCT lipid panel (02/26/2024 9:39 AM CDT) Cholesterol, POC 138 mg/dL HDL, POC 43 mg/dL Triglycerides, POC 181 mg/dL LDL Cholesterol POC 59 mg/dL Chol/HDL Ratio, POC 1.4 Non-HDL Cholesterol, POC 96 mg/dL Cholesterol Total, POC 138 mg/dL Capillary blood 02/26/2024 9 :39 AM CDT Pearl Luciano CORN HUSKER MACHINE OPERATOR POINT OF CARE TEST ORDERA BLES Final Result * CT Colonoscopy Diagnostic WO Contrast (09/13/2023 2:02 PM LEAD ASSISTANT MANAGER) Anatomical Region Laterality Modality Body N/A Computed Tomogra phy 09/13/2023 2:59 PM LEAD ASSISTANT MANAGER Impressions 09/14/2023 8:06 AM LEAD ASSISTANT MANAGER Colon: 7 mm sessile polyp involving [...] Linda Thayer M.D. Narrative 09/14/2023 8:06 AM LEAD ASSISTANT MANAGER EXAMINATION: CT colonography without intravenous contrast [...] it. Electronically signed by: Linda Thayer M.D. Eusebio Love MD IM CT PROCEDURES Final Result * (ABNORMAL) eGFR (01/05/2023 1:00 PM CDT) eGFR 55(L) 90 - 130 mL/min/1. 73 m2 [facility] Comment: Interpretive Data Reference Interval Normal >/= [...] 1:00 PM CDT 01/05/2023 3:01 PM CDT Yemi Carrillo MD LAB BLOOD ORDERABLES Final R esult Performing Organization Address City/[facility] Co de Phone Number [facility] [place] [address] * (ABNORMAL) Hemoglobin A1c (12/08/2022 9:30 AM CDT) Hgb A1C 6.8(H) 4.0 - 5.6 % [facility] Estimated Average Glucose 148 mg/dL [facility] Comment: The ADA recommends reporting an estimated Average Glucose (eAG) with all Hemoglobin A1c results using the equation derived from a study of 507 normal and diabetic adults. Minority populations were underrepresented and children were not included. (Diabetes Care 31:4861-2005, 2008). The eAG is not equivalent to a fasting glucose. Blood 12/08/2022 9:30 AM CDT 12/08/2022 9:41 AM CDT Yemi Carrillo MD LAB BLOOD ORDERABLES Final R esult Performing Organization Address City/[facility]/ZIP Co de Phone Number JAYY [facility]A [address] [address] Department of Laboratories [place] [phone] from Last 3 Months or Most Recently Relevant to Health Maintenance Insurance [facility] Member Subscriber Plan / Payer (Ef fective 2015-Present) Name:Patricia Grider Relation to Subscriber:Self Name:GriderPatricia Payer ID:[id number] (NAIC) Type:MEDICARE RISK OTHER Address: [place] [id number] [facility] Advance Directives For more information, please contact: [phone] Documents on File Type Date Recorded Patient Career Counselor Expl anation ADVANCE DIRECTIVE 06/30/2023 7:04 PM * Full Code (Latest Code Status on File) Date Activated Date Inactivated Comments 12/22/2022 1:45 PM 12/29/2022 8:26 PM Care Teams Castings Drafter Relationship Specialty Start Date End Date Adams Moses DO [address] [place] [address] PCP - General Family Medicine 07/28/23 [place] [address] [facility] [address] [place] [address] Surgeon Cardiothoracic Surgery 12/29/22 [place] [address] [facility] [address] [place] [address] Consulting Physician Cardiology 12/29/22 Eusebio Love MD [phone] [place] [address] Surgeon Colon and Rectal Surgery 08/10/23
--- OUTSIDE RECORDS SUMMARY | 2025-01-06 14:47 | XMS_ITS | Encounter Summary ---
Author Organization [employer] Address [address] [place] [address] Care Team Providers Care Ski Production Supervisor Name Role Phone Art Ashley MD Primary Care Provider [phone] Encounter Details Date Type Department Care Team (Late st Contact Info) Description 11/14/2007 Outpatient Historical [facility] Noel Serrano Wilman Clara Hamilton MD [address] [facility] [place] [address] Social History Tobacco Use Types Packs/Day Years Used Date Smoking Tobacco: Never Assessed Comments Unknown Sex and Gender Information Value Date Recorded Sex Assigned at Not on file Legal Sex Female 4:20 AM BOX CAR BRACER Gender Identity Not on file Sexual Orientation [...] CDT) PHOSPHORUS 3.0 2.5 - 4.5 mg/dL [facility] Blood specimen (specimen) 11/28/2007 6:00 AM CDT 11/28/2007 6:00 AM CDT us Norman Herrera MD CHEMISTRY ORDERABLES Final Result Performing Organization Address [facility] Co de Phone Number [facility] [address] [facility] [place] [address] * MAGNESIUM LEVEL (11/28/2007 6:00 AM CDT) MAGNESIUM 2.1 1.5 - 2.5 mg/dL [facility] Blood specimen (specimen) 11/28/2007 6:00 AM CDT 11/28/2007 6:00 AM CDT us Norman Herrera MD CHEMISTRY ORDERABLES Final Result Performing Organization Address [facility] Co de Phone Number [facility] [address] [facility] [place] [address] * (ABNORMAL) BASIC METABOLIC PANEL (11/28/2007 6:00 AM CDT) POTASSIUM 4.1 3.5 - 4.9 mmol/L [facility] Comment:Slight hemolysis pre sent. Result may be falsely elevated. BUN 24(H) 6 - 20 mg/dL [facility] CHLORIDE 106 96 - 108 mmol/L [facility] GLUCOSE 153(H) 65 - 99 mg/dL [facility] SODIUM 138 135 - 145 mmol/L [facility] CALCIUM 8.7 8.4 - 10.2 mg/dL [facility] CO2 20(L) 22 - 30 mmol/L [facility] CREATININE 1.06(H) 0.51 - 0.95 mg/dL [facility] GFR, >60 >=60 mL/min/1. 7 sq meter [facility] GFR 53(L) >=60 mL/min/1. 7 sq meter [facility] Comment: Estimated GFR rate interpretative information for both Americans and non- Americans is available on the [facility] Intranet at: [email or web address] Select: Lab Policies and Procedures Select: Reference Ranges - GFR Blood specimen (specimen) 11/28/2007 6:00 AM CDT 11/28/2007 6:00 AM CDT us Norman Herrera MD CHEMISTRY ORDERABLES Edited [facility] [address] [facility] [place] [address] * (ABNORMAL) CBC WITH DIFFERENTIAL (11/28/2007 6:00 AM CDT) MCV 91.1 82.0 - 99.0 fL [facility] PLATELETS 152 140 - 350 K/uL [facility] HEMOGLOBIN 14.5 11.8 - 14.8 g/dL [facility] RDW 14.1 11.5 - 14.5 % [facility] WBC 13.9(H) 4.0 - 9.8 K/uL [facility] MCH 30.1 27.2 - 32.6 pg [facility] MPV 11.8 9.3 - 12.4 fL [facility] HEMATOCRIT 43.9 35.5 - 44.0 % [facility] RDW-STDEV 46.6 37.1 - 48.7 fL [facility] RBC 4.82 3.90 - 4.90 M/uL [facility] MCHC 33.0 31.5 - 35.5 % [facility] NEUTROPHILS 84(H) 45 - 70 % [facility] NEUTROPHIL ABSOLUTE 11.59(H) 1.90 - 7.00 K/uL [facility] EOSINOPHILS 0 0 - 7 % [facility] EOSINOPHIL ABSOLUTE 0.01 0.00 - 0.70 K/uL [facility] LYMPHOCYTES 11(L) 16 - 45 % [facility] LYMPHOCYTE ABSOLUTE 1.46 0.70 - 4.50 K/uL [facility] BASOPHILS 0 0 - 2 % [facility] BASOPHILS ABSOLUTE 0.02 0.00 - 0.20 K/uL [facility] MONOCYTES 6 3 - 13 % [facility] MONOCYTE ABSOLUTE 0.77 0.10 - 1.30 K/uL [facility] Blood specimen (specimen) 11/28/2007 6:00 AM CDT 11/28/2007 6:00 AM CDT Norman Herrera MD HEMATOLOGY ORDERABLES Edite d INTERFACE SYSTEM Refer to clinic/hospital department [facility] [address] [facility] [address] [place] [address] * MRSA ACTIVE SURVEILLANCE (11/27/2007 5:55 PM [...] 1:50 PM CDT Ordered by NOEL SERRANO [facility] [address] [place], [place] [address] Admit Date: 11/27/2007 ISAURO GRIDER Sex: F Admit Prov: ZACH NOEL STOVALL Date: 1950 Primary Care Prov: CMRN: [id number] Room: [place] [address] SSN: [id number] IMAGING SERVICES Ordering Prov: N/A Accession Number: [id number] Interpretation Lumbar puncture for cervical myelogram Cervical [...] Historical - 11/27/2007 Ordered by NOEL SERRANO [facility] [address] [place], [place] [address] Admit Date: 11/27/2007 ISAURO GRIDER Sex: F Admit Prov: ZACH NOEL STOVALL Date: 1950 Primary Care Prov: CMRN: [id number] Room: [place] [address] SSN: [id number] IMAGING SERVICES Ordering Prov: N/A Interpretation Lumbar [...] PM CDT Narrative 11/27/2007 1:50 PM CDT [facility] [address] [place], [place] [address] Admit Date: 11/27/2007 ISAURO GRIDER Sex: F Admit Prov: NOEL SERRANO WILMAN Date: 1950 Primary Care Prov: CMRN: [id number] Room: [place] [address] SSN: [id number] IMAGING SERVICES Ordering Prov: N/A Accession Number: [id number] Interpretation Lumbar puncture for cervical myelogram Cervical [...] 13:50 Procedure Note Provider, Historical - 11/27/2007 [facility] [address] [facility] [place], [place] [address] Admit Date: 11/27/2007 ISAURO GRIDER Sex: F Admit Prov: NOEL SERRANO Date: 1950 Primary Care Prov: CMRN: [id number] Room: [place] [address] SSN: [id number] IMAGING SERVICES Ordering Prov: N/A Interpretation Lumbar [...] CDT) HEMOGLOBIN 14.7 11.8 - 14.8 g/dL [facility] HEMATOCRIT 44.8(H) 35.5 - 44.0 % [facility] Blood specimen (specimen) 11/23/2007 4:20 PM CDT 11/23/2007 4:41 PM CDT Noel Serrano HEMATOLOGY ORDERABLES Final R esult [facility] [address] [facility] [place] [address] documented in this encounter Visit Diagnoses Not on filedocumented in this encounter Care Teams Ski Production Supervisor Relationship Specialty Start Date End Date Art Ashley MD [address] [place] [id number] PCP - General Family Practice 12/10/10 documented as of this encounter
--- OUTSIDE RECORDS SUMMARY | 2025-01-06 14:47 | XMS_ITS | Encounter Summary ---
Author Organization [facility] Address [facility] [place] [address] Care Team Providers Care Travel Services Professional Name Role Phone Adams Moses DO Primary Care Provider + Reason for Visit * Reason Comments Follow Up F/u (ED f/u ) * Consultation (Routine) - Authorized Specialty Diagnoses / Procedures Referred By Contac t Referred To Contact GASTROENTEROLOGY Diagnoses Lower abdominal pain Colitis Adams Moses DO [address] [place] [address] Phone: tel: fax: [facility] - [address], [address] [place] [phone] Phone: tel: fax: Referral ID Status Reason Start Date Expiration Date V isits Requested Visits Authorized [id number] Authorized 12/30/2024 09/10/2025 12 12 Encounter Details Date Type Department Care Team (Latest Contact Info) Description 01/01/2025 9:20 AM CDT Office Visit [address], [address] [place] [phone] Adams Moses DO [address] [place] [address] Mayra Guerra NP [address] [address] Follow Up (F/u (ED f/u )) Social History Tobacco Use Types Packs/Day Years [...] friends, or neighbors? Once a week 04/25/20 23 How often do you get togethe r with friends or relatives? Once a week 04/25/2023 How often do you attend [facility] or jew services? 1 to 4 times per year 04/25/2023 Do you belong to any clubs o r organizations such as buddhist groups, unions, fraternal or athletic groups, or [...] Recorded Patient Health Questionnaire-2 Score 0 01/01/2025 [facility] - Occupational [...] money to buy more. Never true 04/25/20 Within the past 12 months, t he [...] place to sleep or slept in a prison (including now)? No 04/25/2023 Comments No Sex and Gender Information Value Date Recorded Sex Assigned at Female 10/17/2024 9:48 AM GLOBAL CHIEF EXPERIENCE OFFICER Legal Sex Female 6:52 PM CDT Gender Identity Female 10/17/2024 9:48 AM GLOBAL CHIEF EXPERIENCE OFFICER Sexual Orientation Not on file documented as of this encounter Last Filed Vital Signs Vital Sign Reading [...] Mass Index 35.15 01/01/2025 9:29 AM CDT documented in this encounter Functional Status * Are you deaf or do you have serious difficulty hearing Answer Date of Assessment Author Status No 04/25/2023 9:13 PM CDT Marcia Harman RN Active * Are you blind or do you have serious difficulty seeing, even when wearing glasses? Answer Date of Assessment Author Status No 04/25/2023 9:13 PM CDT Marcia Harman RN Active * Do you have serious difficulty walking or climbing stairs? Answer Date of Assessment Author Status Yes 04/25/2023 9:13 PM CDT Marcia Harman RN Active * Do you have difficulty dressing or bathing? Answer Date of Assessment Author Status No 04/25/2023 9:13 PM CDT Marcia Harman RN Active * Because of a physical, mental, or emotional condition, do you have difficulty doing errands alone such as visiting a doctor's office or shopping? Answer Date of Assessment Author Status No 04/25/2023 9:13 PM CDT Marcia Harman RN Active * Over the past 2 weeks, how often have you been bothered by any of the following problems? Question Answer Date of Assessment Author Status Little interest or pleasure in doing things Not at all 01/01/2025 9:28 AM CDT Chandni Tolentino MA Active Feeling down, depressed, or hopeless Not at all 01/01/2025 9:28 AM CHILANGOT Laurita Tolentino MA Active Patient Health Questionnaire-2 Score 0 01/01/2025 9:28 AM CHILANGOT Delvis Tolentino MA Active documented as of this encounter Mental Status * Because of a physical, mental, or emotional condition, do you have serious difficulty concentrating, remembering, or making decisions? Answer Entry Date Author Status No 04/25/2023 9:13 PM CDT Marcia Harman RN Active documented in this encounter Progress Notes * Mayra Guerra, PATIENCE - 01/01/2025 9:20 AM CDT Images from the original note were not included. GASTROENTEROLOGY CONSULT 01/01/2025 9:55 AM Reason for Visit: Follow Up (F/u (ED f/u )) History of Present Illness: Patricia Grider is a 74-year-old female who presents today for evaluation of lower abdominal pain. Referral placed by PCP Dr. Moses. Was seen in the ER on 12/27/24 with reported migrating abdominal pain, N/V and and diarrhea for a week. Thought she saw some blood in her stool a few times. CT scan showed right sided colitis involving the terminal ileum to the ascending colon. Was prescribed seven day course of Flagyl and Zofran asneeded for nausea. Has not had any further rectal bleeding. Stool is more formed but still loose and she still has some abdominal pain although not as severe. Zofran is controlling nausea, however eating causes some indigestion. Denies any reflux or dysphagia. She has a h/o of a tortuous colon and significant diverticulosis. Previous colonoscopies have been unable to pass the descending colon with last colonoscopy attempted in 2022. She had a CT colonoscopy in 09/2023 which did not show any signs of colitis. No hx of hepatitis infection NSAID/Anticoagulant use: Eliquis 5 mg, ASA 81 mg Past Medical History[1] Past Surgical History[2] Family History[3] Social History[4] Medications Taking[5] Review of patient's allergies indicates: Allergen Reactions Iodine Shortness of Breath, Palpitations and Unknown Bacitracin Atopic Dermatitis Chlorpheniramine Unknown Codeine Itching Dexamethasone Unknown Eye drop Diclofenac Unknown Doxycycline Unknown Guaifenesin Hives Hydrocodone Unknown Influenza Vaccines Nausea and Vomiting Lyrica [Pregabalin] Unknown Methyl Hydroxybenzoate [Hydroxybenzoate] Hives Misoprostol Unknown Moxifloxacin Swelling Neomycin Unknown Polymyxin B Unknown Sulfa Antibiotics Unknown Amoxicillin Itching Etodolac Unknown Latex Rash Tape Atopic Dermatitis and Contact Dermatitis REVIEW OF SYSTEMS: Review of Systems Constitutional: Negative for fatigue and fever. Respiratory: Negative for shortness of breath. Cardiovascular: Negative for leg swelling. Gastrointestinal: Per HPI Musculoskeletal: Negative for joint swelling. Skin: Negative for rash. Neurological: Negative for dizziness and headaches. Psychiatric/Behavioral: The patient is not nervous/anxious. PHYSICAL EXAM: Filed Vitals: 01/01/25 0929 BP: 122/78 Pulse: 71 Resp: 22 Temp: 97.7 ??F (36.5 ??C) TempSrc: Temporal SpO2: 100% Weight: 81.6 kg (180 lb) Height: 1.524 m (5') Wt Readings from Last 1 Encounters: 01/01/25 81.6 kg (180 lb) Physical Exam Vitals reviewed. Constitutional: Appearance: Normal appearance. Cardiovascular: Rate and Rhythm: Normal rate and regular rhythm. Pulmonary: Breath sounds: Normal breath sounds. No wheezing. Abdominal: General: Bowel sounds are normal. There is no distension. Palpations: Abdomen is soft. There is no mass. Tenderness: There is abdominal tenderness (mild lower abdominal TTP). There is no guarding or rebound. Hernia: No hernia is present. Musculoskeletal: Right lower leg: No edema. Left lower leg: No edema. Skin: General: Skin is warm and dry. Findings: No rash. Neurological: Mental Status: She is alert and oriented to person, place, and time. Psychiatric: Mood and Affect: Mood normal. Behavior: Behavior normal. Labs: Lab Results Component Value Date WBC 13.33 (H) 12/27/2024 RBC 4.52 12/27/2024 HGB 11.8 (L) 12/27/2024 HCT 37.6 12/27/2024 RDW 18.6 (H) 12/27/2024 PLT 196 12/27/2024 NA 141 12/27/2024 K 4.0 12/27/2024 CL 103 12/27/2024 AGAP 9.5 12/27/2024 GLU 189 (H) 12/27/2024 BUN 21 (H) 12/27/2024 CR 1.15 (H) 12/27/2024 GFRNON 44 (L) 12/02/2021 GFR 51 (L) 12/02/2021 CA 9.0 12/27/2024 MAGNESIUM 1.7 (L) 12/27/2024 ALB 3.3 (L) 12/27/2024 ALT 16 12/27/2024 AST 17 12/27/2024 ALKP 135 12/27/2024 Imagin12/27/24 CT ABD+PEL W CON 1. Findings are consistent with active colitis involving the terminal ileum, cecum, and ascending colon. This pattern is most attributable to ulcerative colitis or Crohn's disease. Infectious colitiscan have a similar appearance. 2. Severe diverticulosis 09/14/23 CT Colonoscopy 7 mm sessile polyp involving the high rectum adjacent to a rectal fold. Of note, there was incomplete distention of the hepatic flexure and portions of the sigmoid colon, as well as extensive sigmoiddiverticulosis, limiting evaluation. 04/28/23 XR Colon 1. Filling defect of the cecum is indeterminate. Polyp or neoplasm not excluded. 2. Remainder of the examination is markedly limited due to extensive tortuosity. 04/25/23 CT ABD+PEL WO CON 1. There is prominent colonic diverticulosis that is present. No evidence of acute diverticulitis. Colonic wall thickening is present in the region of the sigmoid colon which may relate to chronic inflammatory changes. 2. 2 cm left ovarian cyst. 3. 3 mm nodule right lower lobe Endoscopies: 06/26/[address] Jarrett Extensive looping and diverticulosis of the left colon. Unable to pass the descending colon. 04/27/23 EGD and Colonoscopy by Dr. Jarrett Negative EGD. Limited colonoscopy due to extreme looping and diverticulosis. Exam limited to descending colon only. Assessment 1. Colitis - dicyclomine (BENTYL) 10 MG capsule; Take 1 capsule (10 mg total) by mouth 4 (four) times daily before meals and nightly for 30 days. Dispense: 120 capsule; Refill: 0 Recommendations/Plan: Complete Flagyl course as prescribed. Dicyclomine 10 mg up to qid PRN prescribed for abdominal pain. Symptoms consistent with infectious colitis vs IBD. Will f/u in 2-3 months to reassess. Consider repeating CT scan and inflammatory markers if still symptomatic It is recommended to consume 20-35 grams of fiber per day and at least 64 ounces/2 liters of water per day. All questions answered Risks/Benefits/Options: Risks, benefits and alternatives of the procedure(s) were discussed which can include but are not limited to: discomfort, missing lesions, allergic or adverse reaction to the sedation, perforation ofthe bowel or upper GI tract which may require hospitalization and surgery, bleeding, infection, aspiration. All questions were answered, patient is in agreement to proceed as planned. Orders placed this encounter: Orders Placed This Encounter dicyclomine (BENTYL) 10 MG capsule Mayra Guerra NP Gastroenterology [1] Past Medical History: Diagnosis Date CAD (coronary artery disease) CABG x3 CKD (chronic kidney disease) COPD (chronic obstructive pulmonary disease) ([facility]) DM (diabetes mellitus) ([facility]) Emphysema of lung ([facility]) GI bleed Hematuria 01/19/2017 HLD (hyperlipidemia) HTN (hypertension) Other pulmonary embolism without acute cor pulmonale ([facility]) PAD (peripheral artery disease) [2] Past Surgical History: Procedure Laterality Date BREAST SURGERY Right benign CABG, ARTERIAL, THREE 12/22/2022 CARPAL TUNNEL RELEASE CHOLECYSTECTOMY COLONOSCOPY N/A 04/27/2023 COLONOSCOPY performed by Stanislaw Jarrett MD at [facility] GI COLONOSCOPY N/A 06/26/2023 COLONOSCOPY performed by Stanislaw Jarrett MD at [facility] GI EYE SURGERY HIP SURGERY bone removed and placed into neck HYSTERECTOMY REPAIR HEART WOUND [3] Family History Problem Relation Name Age of Onset Cancer Mother Cancer Father Other (back pain) Brother [4] Social History Tobacco Use Smoking status: Former Current packs/day: 0.00 Average packs/day: 1 pack/day for 40.0 years (40.0 ttl pk-yrs) Types: Cigarettes Start date: 1976 Quit date: 2017 Years since quittin.3 Passive exposure: Never Smokeless tobacco: Never Tobacco comments: Not a smoker Vaping Use Vaping status: Never Used Substance Use Topics Alcohol use: Never Drug use: Never [5] Outpatient Medications Marked as Taking for the 01/01/25 encounter (Office Visit) with Mayra Guerra NP Medication Sig Dispense Refill albuterol sulfate HFA 108 (90 Base) MCG/ACT inhaler INHALE 1 PUFF INTO THE LUNGS EVERY 4 (FOUR) HOURS NEEDED FOR SHORTNESS OF BREATH OR WHEEZING. 18 g 1 apixaban (ELIQUIS) 5 MG tablet TAKE 1 TABLET BY MOUTH TWICE A DAY 180 tablet 0 aspirin EC (ECOTRIN) 81 MG tablet Take 1 tablet (81 mg total) by mouth daily. atorvastatin (LIPITOR) 80 MG tablet Take 1 tablet (80 mg total) by mouth nightly at bedtime. 90 tablet 3 Blood Glucose Monitoring Suppl (CONTOUR NEXT MONITOR) w/Device Kit Patient to test blood sugar twice daily. 1 kit 0 Cholecalciferol (D2000 ULTRA STRENGTH) 50 MCG (2000 UT) Cap Take 2,000 Units by mouth daily. CONTOUR NEXT TEST test strip USE TO TEST BLOOD SUGARS ONCE DAILY 100 strip 7 dicyclomine (BENTYL) 10 MG capsule Take 1 capsule (10 mg total) by mouth 4 (four) times daily before meals and nightly for 30 days. 120 capsule 0 dorzolamide-timolol 22.3-6.8 MG/ML Solution Place 1 drop into both eyes 2 (two) times daily. Lancets Misc Use as directed 100 each 3 metroNIDAZOLE (FLAGYL) 500 MG tablet Take 1 tablet (500 mg total) by mouth 2 (two) times daily for 7 days. 14 tablet 0 montelukast (SINGULAIR) 10 MG tablet TAKE 1 TABLET BY MOUTH EVERY DAY 90 tablet 1 Multiple Vitamins-Minerals (PRESERVISION AREDS 2 OR) NIFEdipine ER (ADALAT CC) 30 MG 24 hr tablet Take 1 tablet (30 mg total) by mouth daily. olmesartan (BENICAR) 40 MG tablet TAKE 1 TABLET BY MOUTH EVERY DAY 90 tablet 0 ondansetron (ZOFRAN-ODT) 8 MG disintegrating tablet Take 1 tablet (8 mg total) by mouth every 12 (twelve) hours as needed for Nausea. 20 tablet 0 pantoprazole EC (PROTONIX) 40 MG tablet TAKE 1 TABLET BY MOUTH TWICE A DAY 180 tablet 0 documented in this encounter Plan of Treatment Upcoming Encounters Date Type Department Care Team (Late st Contact Info) Description 01/14/2025 10:20 AM CDT Laboratory Only [facility] Family & Internal Medicine [address] [place] [phone] Adams Moses, DO [address] [place] [address] 01/23/2025 9:20 AM CDT Office Visit [facility] Family & Internal Medicine [facility] [address] [place] [phone] Adams Moses, DO [address] [place] [address] 03/03/2025 9:40 AM CDT Office Visit [facility] - [address], [address] [place] [address] Mayra Guerra NP [address] [place] [address] [address] [place] [address] 11/27/2025 10:40 AM CDT Office Visit [facility] - [address] [place] [address] Arun Silva [address] [place] [address] documented as of this encounter Goals Goal [...] as of this encounter Visit Diagnoses Diagnosis Colitis- Primary Other and unspecified noninfectious gastroenteritis and colitis documented in this encounter Additional Health Concerns Assessment Noted Time PHQ-9 Depression Total Score: 3 03/06/20 23 9:15 AM CDT documented as of this encounter Care Teams Travel Services Professional Relationship Specialty Start Date End Date Adams Moses DO [address] [place], [place] [phone] PCP - General FAMILY PRACTICE 09/15/20 documented as of this encounter
--- OUTSIDE RECORDS SUMMARY | 2025-01-06 14:47 | XMS_ITS | Encounter Summary ---
Author Organization [facility] Address [address] [place] [address] Care Team Providers Care Flight Instructor Name Role Phone Adams Moses DO Primary Care Provider + Encounter Details Date Type Department Care Team (Late st Contact Info) Description 10/07/2023 Liquid[employer] Message Enc [facility] Family & Internal Medicine [facility] [address] [place] [address] Adams Moses DO [facility] [place] [address] Mammogram Results Social History Tobacco [...] often do you attend chur ch or shinto services? 1 to 4 times per year 04/25/2023 Do you belong to any clubs o r organizations such as presybeterian groups, unions, fraternal or athletic groups, or [...] Recorded Patient Health Questionnaire-2 Score 0 05/26/2023 [facility] - Occupational Stress Questionnaire Answer Date Recorded [...] place to sleep or slept in a correction (including now)? No 04/25/2023 Comments No Sex and Gender Information Value Date Recorded Sex Assigned at Female 10/17/2024 9:48 AM DISPATCHER SERVICE OR WORK Legal Sex Female 6:52 PM CDT Gender Identity Female 10/17/2024 9:48 AM DISPATCHER SERVICE OR WORK Sexual Orientation Not on file documented as [...] Mullins RN Active * Do you have serious [...] Description 01/14/2025 10:20 AM CDT Laboratory Only [facility] Family Internal [address] [phone] Adams Moses, DO [address] [place] [address] 01/23/2025 9:20 AM CDT Office Visit [address] [phone] Adams Moses, DO [address] [place] [phone] 03/03/2025 9:40 AM CDT Office Visit [facility] - [address], [address] [place] [phone] Mayra Guerra NP [address] [place] [address] [place] [id number] 11/27/2025 10:40 AM CDT Office Visit [facility] - [address] [place] [phone] Arun Silva DO [address] [place] [address] [address] [place], [place] [phone] documented as of this encounter Goals Goal [...] documented as of this encounter Care Teams Flight Instructor Relationship Specialty Start Date End Date Adams Moses DO [address] [place] [address] PCP - General FAMILY PRACTICE 09/15/20 documented as of this encounter
--- OUTSIDE RECORDS SUMMARY | 2025-01-06 14:47 | XMS_ITS | Clinical Summary ---
Author Organization [facility] Address [address] [place] [place] [address] Phone Care Team Providers Care Alley Worker Name Role Phone Art Ashley MD Primary Care Provider Allergies Active Allergy Reactions Criticality Noted Date [...] on file Legal Sex Female 4:20 AM REGULATORY COMPLIANCE MANAGER Gender Identity Not on file Sexual Orientation [...] VACCINES (1 - Tdap) 1969 PNEUMOCOCCAL VACCINE 50+ YEARS (1 of 2 - PCV) 05/31/19 69 BREAST CANCER SCREENING 1990 COLORECTAL SCREENING 1995 Colorectal Cancer Screening 1995 FIT-DNA Q 3 years 1995 FIT/FOBT Q 1 year 1995 Flex Sig/CT Colonography Q 5 years 1995 ZOSTER VACCINE (1 of 2) 2000 OSTEOPOROSIS SCREENING 2015 INFLUENZA VACCINE (#1) 2024 RSV VACCINE (60+ or ) (1 - 1-dose 75+ series) 2025 Insurance [facility] BLUE ACCESS/TRUE BLUE PPO Advance Directives For more information, please contact: [phone] * Full Code (Latest Code Status on File) Date Activated Date Inactivated Comments 12/10/2010 2:53 PM 12/11/2010 12:08 PM Care Teams Alley Worker Relationship Specialty Start Date End Date Art Ashley MD [address] [place] [phone] PCP - General Family Practice 12/10/10
--- OUTSIDE RECORDS SUMMARY | 2025-01-06 14:47 | XMS_ITS | Continuity of Care Document ---
Author Organization [facility] Address [address] [place] [address] Phone Care Team Providers Care Car Sander Name Role Phone Mazariegos OD, Sterling Unavailable [...] Copied on Encounter Office/outpat ient Visit, Est [facility], [address], [place], [place], [id number], [place] tel:[phone] [facility] No Information 7201 0 Mazariegos OD Sterling. [address] , [address], [place], [address], [place]. tel:[phone] Referring Provider: Art Ashley MD Theodore, [address] [place] [address], [address]. tel:[phone] [facility], [address], [place], [place], [address], [place] tel:[phone] [facility] No Information Orion-2 2-201 0 Mazariegos OD Sterling. [address] , [address], [place], [place], [facility], [place]. tel:[phone] [facility], [address], [place], [place], [id number], [place] tel:[phone] [facility] No Information Dec-0 8-200 9 Mazariegos OD Sterling. [address] , [address], [place], [place], [facility], [place]. tel:[phone] Referring Provider: Sterling Mazariegos OD A, [facility] [address], [place], [place], [facility]. tel:[phone] [facility], [address] [place] [address] [address], [place], [place], [address], [place] tel:[phone] [facility] No Information Nov-2 3-200 9 Mazariegos OD Sterling. [address] , [address], [place], [address], [place]. tel:[phone] Referring Provider: Sterling Mazariegos OD A, [facility] [address], [place], [place], [facility]. tel:[phone] Office/outpat ient Visit, Est [facility], [address], [place], [place], [address], [place] tel:[phone] [facility] No Information Amor-2 3-200 9 Mazariegos OD Sterling. [address] [facility] , [address], [place], [address], [place]. tel:[phone] Office/outpat ient Visit, Est [facility], [address] [place] [address] [address], [place], [place], [address], tel:[phone] [facility] No Information 9-200 9 Mazariegos OD Sterling. [facility] [address] , [address], [place], [facility], [place]. tel:[phone] Referring Provider: Sterling Mazariegos OD A, [facility] [address], [place], [facility]. tel:[phone] [facility], [address] [place] [address] [address], [place], [place], [address], tel:[phone] [facility] No Information 7-200 8 Mazariegos OD Sterling. [facility] [address], [address], [place], [facility], [place]. tel:[phone] Referring Provider: Sterling Mazariegos OD A, [address] [place], [place] [address]ate [address], [place], [facility]. tel:[phone] [facility], [address] [place] [address] [address], [place], [place], [address], tel:[phone] [facility] No Information 1-200 8 Mazariegos OD Sterling. [address] [place], [place] [address]ate [address], [address], [place], [facility], [place]. tel:[phone] Referring Provider: Sterling Mazariegos OD A, [facility] [address], [place], [facility]. tel:[phone] [facility], [address] [place] [address] [address], [place], [place], [id number], [place] tel:[phone] [facility] No Information January-0 1-200 8 Mazariegos OD Sterling. [facility] [address], [address], [place], [facility], [place]. tel:[phone] Referring Provider: Sterling Mazariegos OD A, [facility] [address], [place], [facility]. tel:[phone] [facility], [address] [place] [address] [address], [place], [place], [id number], [place] tel:[phone] [facility] No Information -200 7 Mazarieogs OD Sterling. [address] [facility] , [address], [place], [facility], [place]. tel:[phone] Referring Provider: Sterling Mazariegos OD A, [address] [facility] [address], [place], [facility]. tel:[phone] [facility], [address] [place] [address] [address], [place], [place], [address], [place] tel:[phone] [facility] No Information 200 7 Mazariegos OD Sterling. [address] [facility] [address], [address], [place], [facility], [place]. tel:[phone] Referring Provider: Sterling Bustamante, [address] [place], [place] [address], [place], [facility]. tel:[phone] [facility], [address], [place], [place], [address], [place] tel:[phone] [facility] No Information -200 7 Mazariegos OD Sterling. [facility], [facility] [address], [address], [place], [address], [place]. tel:[phone] Office/outpat ient Visit, Est [facility], [address] [place] [address] [address], [place], [place], [address], [place] tel:[phone] [facility] No Information 200 6 Doisy Edward. [facility], [facility] [address], [address], [place], [facility], [place]. tel:[phone] Referring Provider: Art Ashley MD Theodore, [address] [place] [address], [address]. tel:[phone] Family History Family Member Type Diagnosis Age At Onset No Information Payers Payer name Insurance type Covered constitution party ID Chrisrico ramónmelvin(s) No Information Social History [...]
--- OUTSIDE RECORDS SUMMARY | 2025-01-06 14:47 | XMS_ITS | Clinical Summary ---
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 Name Role Phone Yemi Carrillo MD Unavailable [phone] Gopi Almaguer MD Unavailable [phone] Adams Moses DO Primary Care Provide r Eusebio Love MD Unavailable [phone] Allergies Active Allergy Reactions Criticality Noted Date [...] enteric coated tabletIndicatio ns:Coronary artery disease involving barrow coronary artery of barrow heart without angina pectoris Take 1 tablet [...] arthritis(714.0) 03/01/2021 Coronary artery disease invo lving barrow coronary artery of barrow heart without angina pectoris 03/01/2021 Peripheral vascular [...] Date Diagnosed Date Resolved Date CAD in barrow artery 12/22/2022 023 Coronary artery disease of n ative heart with stable angina pectoris 11/22/2022 08/25/2023 Overview (11/22/2022): Added automatically from request for surgery [id number] Coronary artery calcification seen on CT scan 01/08/2008/25/2023 Hypertension associated with diabetes 01/07/2022 02/14/2023 Atypical chest pain 12/31/2021 08/25/20 Hyperlipidemia 11/03/2015 08/25/2023 Surgical History Surgery Date Site/Laterality Comments CATARACT [...] pulmonary disease) (HC C) Asthma Glaucoma Neuropathy Family History Medical History Relation Name Comments Cancer Brother Colon polyps Brother Heart disease Brother Cancer Father Cancer Mother Cancer Sister Heart disease Sister Colleton's disease Sister Relation Name Status Comments Brother [...] than three times a week 12/23/2022 Attends [employer] Not on file 12/23 Active Member [...] place to sleep or slept in a halfway (including now)? No 12/23/2022 Personal Safety Answer Date Recorded Have you ever been in or are you currently in a harmful physical or emotional relationship or is someone making you feel afraid or unsafe? Denies 03/13/2023 Comments Unknown Sex and Gender Information Value Date Recorded Sex Assigned at Not on file Legal Sex Female 12:25 AM CAR SHIFTER Gender Identity Female 09/27/2023 3:25 PM CAR SHIFTER Sexual Orientation Not on file Obstetrics History Last Filed Vital Signs Vital Sign Reading Time Taken Comments Blood Pressure 144/86 10/02/2024 10:56 AM CAR SHIFTER Pulse 57 10/02/2024 10:56 AM CAR SHIFTER Temperature 36.7 C (98.1 F) 03/13/2023 6:51 PM CDT Respiratory Rate 17 03/13/2023 6:51 PM CDT Oxygen Saturation 98% 10/02/2024 10:56 AM CAR SHIFTER Inhaled Oxygen Concentration - - Weight 82.1 kg (181 lb) 10/02/2024 10:56 AM CAR SHIFTER Height 152.4 cm (5') 10/02/2024 10:56 AM CAR SHIFTER Body Mass Index 35.35 10/02/2024 10:56 AM CAR SHIFTER Plan of Treatment Health Maintenance Due Date [...] Additional history exists Depression Screening 03/02/2024 03/02/2023 Lipid Panel 02/25/2025 02/26/2024, 05/0 02/2024, 11/24/2022, Additional history exists Influenza Vaccine (Season Ended) 2025 08/18/20 09, 08/01/2008 DTaP/Tdap/Td Vaccine (2 - Td or Tdap) 09/29/2032 09/29/2022, 03/22/2006 Colon Cancer Screening-Colonoscopy 09/13/2033 09/13/2023 Pneumococcal vaccine 65+ Completed 021, 07/28/2016, 08/01/2008 Zoster Vaccine Completed 09/30/2022, 04/01/2022 Colon Cancer Screening-CT Colonography Discontinued 09/13/2023 Colon Cancer Screening-DNA Stool Discontinued 09/13/19 Colon Cancer Screening-FIT Discontinued 09/13/2023 Colon Cancer Screening-Sigmoidoscopy Discontinued 09/13/2023 Procedures Procedure Name Priority Date/Time Associated Diagnosis Comments POCT LIPID PANEL Routine 02/26/2024 9:39 AM CDT Lipid screening CT VIRTUAL COLONOSCOPY DIAGNOSTIC WO CONTRAST Schedule Routine, Read Routine (OP Routine) 09/13/2023 2:02 PM CAR SHIFTER Screening for malignant neoplasm of colon EGFR STAT 01/05/2023 1:00 PM CDT HEMOGLOBIN A1C Routine 12/08/2022 9:30 AM CDT Preop testing Controlled diabetes mellitus type 2 with complications, 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 (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) from Last 3 Months or Most Recently Relevant to Health Maintenance Results * POCT lipid panel (02/26/2024 9:39 AM CDT) Cholesterol, POC 138 mg/dL HDL, POC 43 mg/dL Triglycerides, POC 181 mg/dL LDL Cholesterol POC 59 mg/dL Chol/HDL Ratio, POC 1.4 Non-HDL Cholesterol, POC 96 mg/dL Cholesterol Total, POC 138 mg/dL Capillary blood 02/26/2024 9 :39 AM CDT Pearl Ann Ankita NECK CUTTER POINT OF CARE TEST ORDERA BLES Final Result * CT Colonoscopy Diagnostic WO Contrast (09/13/2023 2:02 PM CAR SHIFTER) Anatomical Region Laterality Modality Body N/A Computed Tomogra phy 09/13/2023 2:59 PM CAR SHIFTER Impressions 09/14/2023 8:06 AM CAR SHIFTER Colon: 7 mm sessile polyp involving the [...] Linda Thayer M.D. Narrative 09/14/2023 8:06 AM CAR SHIFTER EXAMINATION: CT colonography without intravenous contrast HISTORY: [...] by: Linda Thayer M.D. Eusebio Love MD IMG CT PROCEDURES Final [...] MD LAB BLOOD ORDERABLES Final R esult [facility] Department [place] [address] * (ABNORMAL) Hemoglobin A1c (12/08/2022 9:30 AM CDT) Hgb A1C 6.8(H) 4.0 - 5.6 % JAYY Estimated Average Glucose 148 mg/dL JAYY RIVERA Comment: The ADA recommends reporting an estimated Average Glucose (eAG) with all Hemoglobin A1c results using the equation derived from a study of 507 normal and diabetic adults. Minority populations were underrepresented and children were not included. (Diabetes Care 31:7701-0394, 2008). The eAG is not equivalent to a fasting glucose. 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 ADVANCE DIRECTIVE 06/30/2023 7:04 PM * Full Code (Latest Code Status on File) Date Activated Date Inactivated Comments 12/22/2022 1:45 PM 12/29/2022 8:26 PM Care Teams Tree Sapper Relationship Specialty Start Date End Date Adams Moses DO [address] [place] [address] PCP - General Family Medicine 07/28/23 [place] [address] [place] [address] Surgeon Cardiothoracic Surgery 12/29/22 [place] [address] [place] [address] Consulting Physician Cardiology 12/29/22 Eusebio Love MD [phone] [place] [address] Surgeon Colon and Rectal Surgery 08/10/23
== END 2025-01-06 13:05 | disposition home or self-care (01) ==
LOC: ANHIMG 13:06
PROVIDERS: PCP Student in an Organized Health Care Education/Training Program; Visit Provider Student in an Organized Health Care Education/Training Program
DX: Z12.31 Encounter for screening mammogram for malignant neoplasm of breast (principal)
CPT/HCPCS: 77063; 77067